=== PATIENT | female | born 1940 | race Caucasian/White ===

== ENCOUNTER → 2024-03-21 | Outpatient (CLI) | payer MEDICARE, MEDICAID, SELFPAY ==
[2024-03-21 11:49] LABS: Collection Type, Urine Clean Catch
[2024-03-21 12:03] LABS: Basophils # (Auto) 0.1 Thou/mm3 (0.0-0.2); Basophils % (Auto) 1 % (0-2.5); Eosinophils # (Auto) 1.1 Thou/mm3 (0.0-0.5); Eosinophils % (Auto) 17 % (0-10); Hematocrit 37.9 % (36.0-46.0); Hemoglobin 12.1 g/dL (12.0-16.0); Immature Granulocytes % (Auto) 0 % (0-0); Immature Granulocytes Auto 0.01 Thou/mm3 (0.00-0.00); Lymphocytes # (Auto) 1.2 Thou/mm3 (1.0-4.8); Lymphocytes % (Auto) 18 % (10-50); Mean Corpuscular HGB Conc 31.9 g/dl (31.0-37.0); Mean Corpuscular Hemoglobin 29.7 pg (25.0-35.0); Mean Corpuscular Volume 93 fL (80-100); Monocytes # (Auto) 0.5 Thou/mm3 (0.0-0.8); Monocytes % (Auto) 8 % (0-12); Neutrophils # (Auto) 3.6 Thou/mm3 (1.8-7.7); Neutrophils % (Auto) 55 % (37-80); Nucleated Red Blood Cell % 0 /100 WBC (0); Platelet Count 325 Thou/mm3 (140-440); Red Blood Count 4.07 Miln/mm3 (4.00-5.20); White Blood Count 6.5 Thou/mm3 (3.6-11.0)
[2024-03-21 12:08] LABS: Bilirubin,Urine Negative (Negative); Blood,Urine Negative (Negative); Clarity,Urine Clear (Clear/Hazy); Color,Urine Yellow (Lt Yel-Yel); Glucose, Urine 1+ (Negative); Ketones,Urine Negative (Negative); Leukocyte Esterase,Urine Negative (Negative); Nitrite,Urine Negative (Negative); Protein,Urine 1+ (Neg - Trace); RBC,Urine 3 /hpf (0-3); Specific Gravity,Urine 1.022 (1.001-1.035); Squamous Epithelial Cell,Urine 4 /hpf (0-5); Urobilinogen,Urine Negative mg/dL (0.0-1.0); WBC,Urine 3 /hpf (0-5)
[2024-03-21 12:28] LABS: Parathyroid Hormone Intact 111.3 pg/ml (18.5-88.0)
[2024-03-21 12:30] LABS: Alanine Aminotransferase 12 U/L (10-49); Albumin, Serum 4.1 gm/dL (3.4-4.8); Alkaline Phosphatase 79 U/L (46-116); Anion Gap 8 (7-16); Aspartate Amino Transferase 15 U/L (0-34); BUN/Creatinine Ratio 16 Ratio (12-20); Bilirubin,Total 0.3 mg/dL (0.3-1.2); Blood Urea Nitrogen 22 mg/dL (9-23); Calcium 9.6 mg/dL (8.3-10.6); Calcium (Corrected) 9.6 mg/dL (8.5-10.1); Carbon Dioxide 29.3 mMol/L (20.0-31.0); Cardiac Risk Estimate 3.3 RATIO (3.7-5.6); Chloride 104 mMol/L (98-107); Cholesterol 140 mg/dL (132-200); Creatinine (Component) 1.4 mg/dL (0.6-1.3); Globulin 2.1 gm/dL (2.3-3.5); Glucose 146 mg/dL (74-106); HDL Cholesterol 43 mg/dL (40-60); LDL Cholesterol,Calculated 81 mg/dL (0-130); Osmolality,Calculated 287 (275-295); Sodium 141 mMol/L (136-145); Total Protein 6.2 gm/dL (5.7-8.2); Triglycerides 82 mg/dL (30-150); eGFR 38 See Note
== END | disposition home or self-care (01) ==
LOC: COPL 11:01
PROVIDERS: PCP Internal Medicine; Referring Provider Internal Medicine; Visit Provider Internal Medicine
DX: I12.9 Hypertensive chronic kidney disease with stage 1 through stage 4 chronic kidney disease, or unspecified chronic kidney disease (principal); N18.30 Chronic kidney disease, stage 3 unspecified; E78.5 Hyperlipidemia, unspecified
CPT/HCPCS: 36415; 80053; 80061; 81001; 83970; 85025

== ENCOUNTER 2024-05-29 14:07 | Emergency (ER) | payer MEDICARE, MEDICAID, SELFPAY ==
[2024-05-29 14:09] VITALS: BMI 25.9
[2024-05-29 14:28] VITALS: BP 150/73; PULSE 98; RESP 20; TEMP 37.6; O2SAT 91
--- NOTE | 2024-05-29 14:31 | XR_ITS ---
Examination: CT abdomen and pelvis without contrast. Coronal 3-D reconstructions. Sagittal 2-D reconstructions. Date and time of exam:May 31, 2024 at 1303 hours Indications: Generalized abdominal pain and vomiting this week CTDI: vol (mGy): 7.25 DLP: (mGycm): 369 Technique: Axial images of the abdomen have been obtained, 3 mm slice thickness Intravenous contrast material has not been administered. Low dose protocols were performed. One or more of the following dose reduction techniques were used; automated exposure control, adjustment of the mA and/or KV according to patient size, use of iterative reconstruction technique. Findings: Patient motion degrades scan image quality Liver is mildly irregular in contour with fatty infiltration Gallstones No pancreatic mass Heavy abdominal aortic calcification Atrophic left kidney Renal arterial calcifications No hydronephrosis 12 mm fat-containing umbilical hernia No pericecal inflammatory change No bowel obstruction Extensive colonic diverticulosis, no diverticulitis Atrophic uterus Urinary bladder wall is thickened anteriorly up to 13 mm Left hip hemiarthroplasty with satisfactory alignment Advanced degenerative disc disease lower 3 lumbar levels Impression: The study is degraded by patient motion Primary hepatocellular disease Cholelithiasis, recommend hepatobiliary sonography follow-up Atrophic left kidney No hydronephrosis or ureteral calculi 12 mm fat-containing umbilical hernia No CT findings of bowel obstruction appendicitis Colonic diverticulosis, no diverticulitis Urinary bladder wall thickened anteriorly up to 13 mm, differential would include cystitis, clinical correlation advised
--- NOTE | 2024-05-29 14:31 | XR_ITS ---
Examination: AP lateral chest 2 views Technique: Sitting AP lateral chest 2 views Exam date and time: May 29, 2024 1442 hrs. Indications: Onset nausea vomiting lower abdominal pain and fever beginning 2 days ago Findings: Mild enlargement cardiac contour Retrocardiac gastric hernia Mild vascular congestion. Ectatic thoracic aorta Recommend AP lordotic chest follow-up to exclude 12 mm pulmonary nodule right upper lobe No lobar pneumonia Impression: Mild vascular congestion Recommend AP lordotic chest follow-up to exclude 12 mm pulmonary nodule right upper lobe
--- NOTE | 2024-05-29 14:32 | PD.EDRME ---
Rapid Medical Screening Exam RME Arrival date/time: 05/29/24 14:07 83-year-old female with a history of diverticulitis, hyperlipidemia, hypertension, dementia presents to the emergency room with a chief complaint of nausea vomiting, lower abdominal pain, and fevers x 2 days I have greeted and performed a focused initial assessment of this patient. A comprehensive ED assessment and evaluation of the patient, analysis of all test results, and completion of the medical decision making process will be conducted by additional ED providers. Chief Complaint: Abdominal Pain Time Seen by Provider: 05/29/24 14:26 Vital signs: Vital Signs Temperature 99.6 F 05/29/24 14:28 Pulse Rate 98 05/29/24 14:28 Respiratory Rate 20 05/29/24 14:28 Blood Pressure 150/73 H 05/29/24 14:28 Pulse Oximetry (%) 91 L 05/29/24 14:28 Oxygen Delivery Method Room Air 05/29/24 14:28 Vital signs reviewed by provider: Yes
[2024-05-29 15:35] LABS: Basophils % (Auto) 0 % (0-2.5); Eosinophils % (Auto) 0 % (0-10); Hemoglobin 10.2 g/dL (12.0-16.0); Immature Granulocytes % (Auto) 1 % (0-0); Immature Granulocytes Auto 0.09 Thou/mm3 (0.00-0.00); Lymphocytes # (Auto) 0.4 Thou/mm3 (1.0-4.8); Lymphocytes % (Auto) 3 % (10-50); Mean Corpuscular HGB Conc 32.9 g/dl (31.0-37.0); Mean Corpuscular Hemoglobin 29.7 pg (25.0-35.0); Mean Corpuscular Volume 90 fL (80-100); Monocytes # (Auto) 0.1 Thou/mm3 (0.0-0.8); Monocytes % (Auto) 1 % (0-12); Neutrophils # (Auto) 14.4 Thou/mm3 (1.8-7.7); Neutrophils % (Auto) 96 % (37-80); Nucleated Red Blood Cell % 0 /100 WBC (0); Platelet Count 326 Thou/mm3 (140-440); RDW Standard Deviation 51.1 fL (36.4-46.3); Red Blood Count 3.43 Miln/mm3 (4.00-5.20); White Blood Count 15.1 Thou/mm3 (3.6-11.0)
[2024-05-29 16:05] LABS: Alanine Aminotransferase 15 U/L (10-49); Albumin, Serum 3.6 gm/dL (3.4-4.8); Albumin/Globulin Ratio 1.3 (1.2-2.2); Alkaline Phosphatase 109 U/L (46-116); Anion Gap 13 (7-16); Aspartate Amino Transferase 23 U/L (0-34); BUN/Creatinine Ratio 16 Ratio (12-20); Bilirubin,Total 0.3 mg/dL (0.3-1.2); Blood Urea Nitrogen 31 mg/dL (9-23); Calcium 9.1 mg/dL (8.3-10.6); Calcium (Corrected) 9.4 mg/dL (8.5-10.1); Chloride 103 mMol/L (98-107); Creatinine (Component) 1.9 mg/dL (0.6-1.3); Estimated Creatinine Clearance 16.2 mL/min (>60); Globulin 2.7 gm/dL (2.3-3.5); Glucose 275 mg/dL (74-106); Lipase 21 U/L (12-53); Osmolality,Calculated 290 (275-295); Potassium 3.9 mMol/L (3.4-5.1); Sodium 137 mMol/L (136-145); Total Protein 6.3 gm/dL (5.7-8.2); eGFR 26 See Note
--- NOTE | 2024-05-29 20:00 | PD.EDABDPN ---
ED Abdominal Pain RME/HPI General Chief Complaint: Abdominal Pain Stated complaint: ABD PAIN, VOMITING Time seen by provider: 05/29/24 14:26 Arrival date/time: 05/29/24 14:07 Source: patient Mode of arrival: ambulatory Limitations: no limitations RME / HPI RME / HPI narrative: 05/29/24 14:07 83-year-old female with a history of diverticulitis, hyperlipidemia, hypertension, dementia presents to the emergency room with a chief complaint of nausea vomiting, lower abdominal pain, and fevers x 2 days I have greeted and performed a focused initial assessment of this patient. A comprehensive ED assessment and evaluation of the patient, analysis of all test results, and completion of the medical decision making process will be conducted by additional ED providers. Dr. Box?s Main ED Evaluation: 83-year-old female wit history of dementia is brought to the emergency department by her daughter due to complaints of persistent abdominal pain, fever, nausea, and vomiting. The daughter reports that the patient had a recorded fever of 100.7?F. The daughter has observed a decrease in oral intake over the past day. Given these concerns, the daughter took the patient to [facility] yesterday, where she was evaluated and prescribed Bactrim empirically while awaiting urine culture results. Since then, the patient has taken two doses of the antibiotic; however, her symptoms have persisted, prompting her daughter to bring her to the ED for further evaluation. Related Data Home Medications ?Medication ?Instructions ?Recorded ?Confirmed verapamil 240 mg tablet,extended 240 mg PO QDAY 05/02/20 08/01/21 release albuterol sulfate 90 mcg/actuation 2 puff inhalation Q6H 02/15/21 08/01/21 aerosol inhaler insulin glargine 100 unit/mL (3 10 unit subcut QPM 02/15/21 08/01/21 mL) subcutaneous pen (Basaglar KwikPen U-100 Insulin) lisinopril 20 mg tablet 20 mg PO QDAY 02/15/21 08/01/21 clopidogrel 75 mg tablet 75 mg PO QDAY 08/01/21 08/01/21 furosemide 40 mg tablet 40 mg PO QAM 08/01/21 08/01/21 glipizide 5 mg tablet 5 mg PO QDAY 08/01/21 08/01/21 nitroglycerin 0.4 mg sublingual 0.4 mg buccal [id number] PRN Chest 08/01/21 08/01/21 tablet Pain potassium chloride 10 mEq 10 meq PO BID 08/01/21 08/01/21 capsule,extended release pravastatin 40 mg tablet 40 mg PO QDAY 08/01/21 08/01/21 Previous Rx's ?Medication ?Instructions ?Recorded dicyclomine 20 mg tablet 20 mg PO QID PRN abdominal pain 06/25/23 #14 tabs nitrofurantoin 100 mg PO Q12H Urinary tract 05/29/24 monohydrate/macrocrystals 100 mg infection 7 days #14 caps capsule (Macrobid) Allergies Allergy/AdvReac Type Severity Reaction Status Date / Time erythromycin base Allergy Severe DIFF Verified 05/29/24 14:08 BREATHING latex Allergy Severe RASH AND Verified 05/29/24 14:08 ITCHING Penicillins Allergy Severe ITCHING Verified 05/29/24 14:08 tetracycline Allergy Severe RASH Verified 05/29/24 14:08 Review of Systems Review of Systems Systems Reviewed: All systems reviewed, normal except as documented Past Medical History Past Medical History NEUROLOGIC: Positive Dementia (early); Negative Seizures CARDIAC: Positive Myocardial Infarction, Hypercholesterolemia, Cellulitis and Hypertension; Negative Cardiac Disorders or Congestive Heart Failure RESPIRATORY: Negative Chronic Obstructive Pulmonary Disease (COPD) or Asthma GASTROINTESTINAL: Positive Diverticulitis; Negative Gastrointestinal Bleed, Hemorrhoids or Gastroesophageal Reflux Disease GENITOURINARY: Positive Genitourinary Disorders; Negative Renal Disease REPRODUCTIVE: Positive Previous Pregnancies MUSCULOSKELETAL: Positive Arthritis, Osteoporosis and Fractures ENDOCRINE: Negative Diabetes Mellitus Type 1 or Diabetes Mellitus Type 2 HEMATOLOGIC: Negative Sickle Cell Disease PSYCHO/SOCIAL: Negative Depression or Anxiety OTHER HISTORY: Positive Chicken Pox; Negative Autoimmune Disease, Falls, Blood Transfusions, Blood Transfusion Reaction or Cancer Family History FAMILY HISTORY: Negative Family Psychiatric Problems, Family Respiratory Disorders, Family Cardiac Disorders, Family Gastrointestinal Problems, Family Cancer, Family Surgery or Family Anesthesia Reaction Surgical History SURGICAL: Positive Coronary Stent Social History SMOKING STATUS: Never smoker SUBSTANCE USE: does not use ED Exam Narrative Physical exam: GENERAL APPEARANCE: Alert and oriented to person but mildly confused, consistent with the patient?s baseline dementia, with no acute worsening of mental status, well-developed, well-nourished, no acute distress VITALS: All vitals were reviewed and the pulse ox is 95% on room air, which is normal according to my interpretation. HEENT: Normocephalic, atraumatic; pupils equal, round, reactive to light; EOMI; mucous membranes pink, moist; oropharynx clear NECK: Supple LUNGS: CTABL; no wheezes, no rales, no rhonchi HEART: Regular rate, regular rhythm; normal S1, S2; no murmurs ABDOMEN: non distended; normal BS; soft, no tenderness, no guarding, no rebound; no masses, no organomegaly, no hernia BACK: no CVA tenderness EXTREMITIES: atraumatic; no edema NEUROLOGIC: awake; alert and oriented x4; cranial nerves II-XII grossly intact; no focal sensory or motor deficits PSYCHIATRIC: appropriate mood and affect SKIN: warm, dry, normal color; no rashes General Limitations: Present no limitations Course Course Course Narrative: CXR is ordered for determining etiology of fever. Quality Measures none Orders Category Date Time Status Bedside COVID-19 Antigen Test NOW Care 05/29/24 14:31 Completed Bedside Influenza A&B Antigen Test NOW Care 05/29/24 14:31 Completed In and Out Catheter X1 Care 05/29/24 20:[address] abdomen pelvis wo con Stat Exams 05/29/24 14:31 Completed XR chest 2V Stat Exams 05/29/24 14:31 Completed CBC Stat Lab 05/29/24 15:14 Completed CMP [Comprehensive Metabolic Panel] Stat Lab 05/29/24 15:14 Completed Lipase Stat Lab 05/29/24 15:14 Completed Urinalysis, C/S if Indicated Stat Lab 05/29/24 20:02 Completed Urine Culture Stat Lab 05/29/24 20:02 Received 1,000 mg IM w/Lido* 1% Med 05/29/24 20:25 Ordered cefTRIAXone [Rocephin] 1,000 mg Lidocaine 1% 20 ml [Xylocaine 1% 20 ML] 2.1 ml IM X1 Vital Signs Vital signs: Vital Signs Temperature 99.6 F 05/29/24 14:28 Pulse Rate 98 05/29/24 14:28 Respiratory Rate 20 05/29/24 14:28 Blood Pressure 150/73 H 05/29/24 14:28 Pulse Oximetry (%) 91 L 05/29/24 14:28 Oxygen Delivery Method Room Air 05/29/24 14:28 Abdominal Pain MDM MDM Narrative MDM Narrative:: 83-year-old female with a history of dementia presents with persistent abdominal pain, fever (100.7?F), nausea, and vomiting. She was recently evaluated at [facility] and started on Bactrim for a suspected UTI, but symptoms have persisted despite two doses. Urinalysis is positive for UTI. The patient is clinically stable for discharge with no indication for inpatient admission. Macrobid was prescribed and sent to the pharmacy. Discharge precautions were discussed with the daughter, and she was advised to follow up as needed. Scribe Attestation: I, Saray Deng, am scribing for and in the presence of Dr. Box. Provider Notation: Although this document has been carefully reviewed, there may still be some phonetic and other typographical errors. These errors are purely grammatical due to imperfections in the software program and should not be construed in any way to compromise the substance of the patient's medical care during this visit. Patient data External records reviewed:: [facility] previous records Clinical information provided by:: patient and family Social determinants that could affect healthcare access:: none Patient has the following chronic illnesses:: see PMH How is presenting disease/condition affected by chronic disease/condition?: uneffected by Evaluation data The following diagnostics were reviewed and interpreted by me:: lab results and radiology exam(s) Lab and/or radiology exams considered but not ordered:: na Interpretation Summary: I personally reviewed the radiology data and agree with the radiologist's interpretation. Examination: AP lateral chest 2 views Exam date and time: May 29, 2024 1442 hrs. Indications: Onset nausea vomiting lower abdominal pain and fever beginning 2 days ago Findings: Mild enlargement cardiac contour Retrocardiac gastric hernia Mild vascular congestion. Ectatic thoracic aorta Recommend AP lordotic chest follow-up to exclude 12 mm pulmonary nodule right upper lobe No lobar pneumonia Impression: Mild vascular congestion Recommend AP lordotic chest follow-up to exclude 12 mm pulmonary nodule right upper lobe Dictated By: Sachin Quinonez MD Examination: CT abdomen and pelvis without contrast. Date and time of exam:May 31, 2024 at 1303 hours Indications: Generalized abdominal pain and vomiting this week Findings: Patient motion degrades scan image quality Liver is mildly irregular in contour with fatty infiltration Gallstones No pancreatic mass Heavy abdominal aortic calcification Atrophic left kidney Renal arterial calcifications No hydronephrosis 12 mm fat-containing umbilical hernia No pericecal inflammatory change No bowel obstruction Extensive colonic diverticulosis, no diverticulitis Atrophic uterus Urinary bladder wall is thickened anteriorly up to 13 mm Left hip hemiarthroplasty with satisfactory alignment Advanced degenerative disc disease lower 3 lumbar levels Impression: The study is degraded by patient motion Primary hepatocellular disease Cholelithiasis, recommend hepatobiliary sonography follow-up Atrophic left kidney No hydronephrosis or ureteral calculi 12 mm fat-containing umbilical hernia No CT findings of bowel obstruction appendicitis Colonic diverticulosis, no diverticulitis Urinary bladder wall thickened anteriorly up to 13 mm, differential would include cystitis, clinical correlation advised Dictated By: Sachin Quinonez MD Medications / Prescriptions Medications or Prescriptions considered but not ordered:: na Medication administrations:: as above, if any Consultations Consultation(s) initiated? (list below): No Diagnosis Differential diagnosis abdominal pain: acute appendicitis, diverticulitis, small bowel obstruction and other (intra-abdominal abscess, cancer) Most likely diagnosis given after review of the tests above:: see clinical impression below Admission Indicated Admission indicated?: not indicated Admission Request Was there a request for admission?: No Disposition Plan Disposition Plan: Discharge Discharge Attestation Discharge Attestation: The patient and all family members were given an opportunity to ask questions and understood the discharge instructions. Discharge instructions specifically effects, indications for sooner follow up or return to the emergency department, and the expected course of current diagnosis. Patient condition: Stable Discharge Plan Plan Patient Disposition: HOME (Self Care) Disposition Comment: Stable for discharge Patient condition on transfer: Stable Prescriptions/Referrals Prescriptions/Med Rec: New nitrofurantoin monohyd/m-cryst [Macrobid] 100 mg capsule 100 mg PO Q12H 7 Days Qty: 14 0RF Rx Instructions: must administer with a meal/food No Action verapamil 240 mg Tablet Extended Release 240 mg PO QDAY lisinopril 20 mg tablet 20 mg PO QDAY albuterol sulfate 90 mcg/actuation HFA aerosol inhaler 2 puff INHALATION Q6H Lyndon Barrientos U-100 Insulin 100 unit/mL (3 mL) Insulin Pen 10 unit SUBCUT QPM furosemide 40 mg Tablet 40 mg PO QAM potassium chloride 10 mEq Capsule, Extended Release 10 meq PO BID pravastatin 40 mg Tablet 40 mg PO QDAY clopidogrel 75 mg Tablet 75 mg PO QDAY nitroglycerin 0.4 mg Tablet, Sublingual 0.4 mg BUCCAL [id number] PRN (Reason: Chest Pain) glipizide 5 mg Tablet 5 mg PO QDAY dicyclomine 20 mg tablet 20 mg PO QID PRN (Reason: abdominal pain) Qty: 14 0RF Referrals: Kaleb Sky MD [Primary Care Provider] - In 1 week Problem List Clinical Impression: Urinary tract infection Patient/Caregiver Discharge Instructions Discharge Activity: activity as tolerated Education Materials: Urinary Tract Infections in Women Additional Instructions: Please return to the emergency department for any worsening or any further medical problems. Otherwise you should follow-up with your primary care doctor within the next several days Afsaneh has a urinary tract infection. She was partially treated with a medicine called Macrobid. She is currently being treated with a different antibiotic called Bactrim. Please continue to give her the Bactrim until its completely gone and also you should add the Macrobid which I called a prescription in for at the pharmacy. Between these 2 antibiotics she will most likely have good coverage for her urinary tract infection. Print Language: [place] Stand Alone Forms: Greta Award Info., Patient Portal Info Letter
[2024-05-29 20:09] LABS: Collection Type, Urine Clean Catch
[2024-05-29 20:19] VITALS: BP 132/68; PULSE 82; RESP 18; TEMP 37.7; O2SAT 92
[2024-05-29 20:22] LABS: Bacteria,Urine Rare; Bilirubin,Urine Negative (Negative); Blood,Urine 1+ (Negative); Clarity,Urine Turbid (Clear/Hazy); Color,Urine Yellow (Lt Yel-Yel); Glucose, Urine Trace (Negative); Ketones,Urine Negative (Negative); Leukocyte Esterase,Urine Positive (Negative); Nitrite,Urine Negative (Negative); PH,Urine 5.5 (5.0-7.0); Protein,Urine 2+ (Neg - Trace); RBC,Urine 3 /hpf (0-3); Specific Gravity,Urine 1.017 (1.001-1.035); Squamous Epithelial Cell,Urine < 1 /hpf (0-5); Urobilinogen,Urine Negative mg/dL (0.0-1.0); WBC,Urine 183 /hpf (0-5)
[2024-05-29 20:23] LABS: Culture Indicated,Urine Yes
[2024-05-29] MEDS: cefTRIAXone 1,000 MG, LIDOCAINE 1% 20 ML 2.1 ML IM (20:35)
[2024-05-29 20:52] VITALS: RESP 18
== END 2024-05-29 20:53 | disposition home or self-care (01) ==
PROVIDERS: Nurse Practitioner Family; Emergency Provider Emergency Medicine; PCP Internal Medicine
DX: N39.0 Urinary tract infection, site not specified (principal); I10 Essential (primary) hypertension; F03.90 Unspecified dementia, unspecified severity, without behavioral disturbance, psychotic disturbance, mood disturbance, and anxiety
CPT/HCPCS: 51701; 36415; 71046; 74176; 80053; 81001; 83690; 85025; 87077; 87086; 87186; 87400; 87811; 96372; 99284; J0696; J3490

== ENCOUNTER 2024-05-30 11:11 | Inpatient (IN) | payer MEDICARE, MEDICAID, SELFPAY ==
--- NOTE | 2024-05-30 11:19 | PD.EDADULT ---
ED General RME/HPI General Chief complaint: General Adult/Misc Complain Stated complaint: LOW BLOOD PRESSURE Time Seen by Provider: 05/30/24 11:14 Arrival date/time: 05/30/24 11:11 CC: Hypotension HPI patient presents the ER via EMS report normal tensive pressures the family members report hypotension before giving hypertensive medication to the patient patient has no specific complaints although demented the patient states she has no fever chills nausea vomiting or headache. Review the medical record shows that the patient was seen here last night diagnosed with UTI and discharged home. Related Data Home Medications ?Medication ?Instructions ?Recorded ?Confirmed verapamil 240 mg tablet,extended 240 mg PO QDAY 05/02/20 08/01/21 release albuterol sulfate 90 mcg/actuation 2 puff inhalation Q6H 02/15/21 08/01/21 aerosol inhaler insulin glargine 100 unit/mL (3 10 unit subcut QPM 02/15/21 08/01/21 mL) subcutaneous pen (Basaglar KwikPen U-100 Insulin) lisinopril 20 mg tablet 20 mg PO QDAY 02/15/21 08/01/21 clopidogrel 75 mg tablet 75 mg PO QDAY 08/01/21 08/01/21 furosemide 40 mg tablet 40 mg PO QAM 08/01/21 08/01/21 glipizide 5 mg tablet 5 mg PO QDAY 08/01/21 08/01/21 nitroglycerin 0.4 mg sublingual 0.4 mg buccal [id number] PRN Chest 08/01/21 08/01/21 tablet Pain potassium chloride 10 mEq 10 meq PO BID 08/01/21 08/01/21 capsule,extended release pravastatin 40 mg tablet 40 mg PO QDAY 08/01/21 08/01/21 Previous Rx's ?Medication ?Instructions ?Recorded dicyclomine 20 mg tablet 20 mg PO QID PRN abdominal pain 06/25/23 #14 tabs nitrofurantoin 100 mg PO Q12H Urinary tract 05/29/24 monohydrate/macrocrystals 100 mg infection 7 days #14 caps capsule (Macrobid) Allergies Allergy/AdvReac Type Severity Reaction Status Date / Time erythromycin base Allergy Severe DIFF Verified 05/30/24 11:35 BREATHING latex Allergy Severe RASH AND Verified 05/30/24 11:35 ITCHING Penicillins Allergy Severe ITCHING Verified 05/30/24 11:35 tetracycline Allergy Severe RASH Verified 05/30/24 11:35 Review of Systems Review of Systems Narrative Review of Systems: GEN: No fever, no chills, no weight loss EYES: No discharge, no visual changes, no pain HEENT: No ear pain, no congestion, no sore throat PULM: No shortness of breath, no cough, no congestion CV: No chest pain, no dyspnea on exertion, no palpitations GI: No nausea, no vomiting, no diarrhea, no pain, no constipation : No frequency, no urgency, no dysuria MUSC/SKEL: No joint pain, no back pain SKIN: No rash PSYCH: No hallucinations, no depression HEME/LYMPH: No easy bleeding or bruising tendencies NEURO: No weakness, no headache Past Medical History Past Medical History NEUROLOGIC: Positive Dementia; Negative Seizures CARDIAC: Positive Myocardial Infarction, Hypercholesterolemia, Cellulitis and Hypertension; Negative Cardiac Disorders or Congestive Heart Failure RESPIRATORY: Negative Chronic Obstructive Pulmonary Disease (COPD) or Asthma GASTROINTESTINAL: Positive Diverticulitis; Negative Gastrointestinal Bleed, Hemorrhoids or Gastroesophageal Reflux Disease GENITOURINARY: Positive Genitourinary Disorders; Negative Renal Disease REPRODUCTIVE: Positive Previous Pregnancies MUSCULOSKELETAL: Positive Arthritis, Osteoporosis and Fractures ENDOCRINE: Negative Diabetes Mellitus Type 1 or Diabetes Mellitus Type 2 HEMATOLOGIC: Negative Sickle Cell Disease PSYCHO/SOCIAL: Negative Depression or Anxiety OTHER HISTORY: Positive Chicken Pox; Negative Autoimmune Disease, Falls, Blood Transfusions, Blood Transfusion Reaction or Cancer Family History FAMILY HISTORY: Negative Family Psychiatric Problems, Family Respiratory Disorders, Family Cardiac Disorders, Family Gastrointestinal Problems, Family Cancer, Family Surgery or Family Anesthesia Reaction Surgical History SURGICAL: Positive Coronary Stent Social History SMOKING STATUS: Never smoker SUBSTANCE USE: does not use ED Exam Narrative Physical exam: [General: Not in any acute distress Head normocephalic HEENT: Within acceptable limits Neck is supple nontender Chest equal chest rise nontender to palpation Respiratory: Clear to auscultation no wheezes crackles or rubs CV: Rate rhythm is regular no murmurs rubs or clicks Abdomen is soft nontender no masses positive bowel sounds all 4 quadrants Back: No CVA tenderness no spinous process tenderness from cervical spine thoracic and lumbar spine Skin: Intact no petechiae rash induration ulceration or crepitus Extremities: Moving all extremity against resistance cap refill less than 2 seconds neurosensory intact Neuro: Awake alert oriented x2, person and place, Glascow coma 15 no focal deficits] Course Quality Measures none Orders Category Date Time Status EKG (ED ONLY) *Do not use* NOW Care 05/30/24 13:35 Completed Saline [Insert IV] NOW Care 05/30/24 13:39 Active EKG (ED Only) Stat Exams 05/30/24 13:35 Draft XR chest 1V Stat Exams 05/30/24 14:10 Completed B-Type Natriuretic Peptide Stat Lab 05/30/24 12:30 Completed CBC Stat Lab 05/30/24 12:30 Completed CMP [Comprehensive Metabolic Panel] Stat Lab 05/30/24 12:30 Completed Drug Screen,Urine Stat Lab 05/30/24 14:51 Completed LDH (Lactate Dehydrogenase) Stat Lab 05/30/24 12:30 Completed Lactic Acid [Lactate (Lactic Acid)] Stat Lab 05/30/24 14:15 Completed Magnesium Stat Lab 05/30/24 12:30 Completed Partial Thromboplastin Time Stat Lab 05/30/24 12:30 Completed Procalcitonin Stat Lab 05/30/24 12:30 Completed Prothrombin Time with INR Stat Lab 05/30/24 12:30 Completed Troponin I Stat Lab 05/30/24 12:30 Completed Urinalysis Stat Lab 05/30/24 14:51 Completed Sodium Chloride 0.9% 1000 ml [Ns] 1,000 ml Med 05/30/24 13:39 Discontinued IV 999 mls/hr [id number] [Rocephin] 1,000 mg Med 05/30/24 15:15 Discontinued Sodium Chloride 0.9% (Partial) [NS (Partial)] 50 ml IV NOW Vital Signs Vital signs: Vital Signs Temperature 98.2 F 05/30/24 11:25 Pulse Rate 87 05/30/24 11:25 Respiratory Rate 20 05/30/24 11:25 Blood Pressure 90/57 L 05/30/24 11:25 Pulse Oximetry (%) 100 05/30/24 11:25 Oxygen Delivery Method Nasal Cannula 05/30/24 11:25 Oxygen Flow Rate 6 05/30/24 11:25 [facility] Patient data External records reviewed:: [facility] previous records and EMS form Clinical information provided by:: patient and EMS Social determinants that could affect healthcare access:: none Patient has the following chronic illnesses:: Diabetes hypertension hyperlipidemia How is presenting disease/condition affected by chronic disease/condition?: uneffected by Evaluation data The following diagnostics were reviewed and interpreted by me:: lab results Lab and/or radiology exams considered but not ordered:: EKG performed at 1517 shows a ventricular rate of 7 0 [place] interval 177 QRS of 9 8 QTc of 430 this is normal sinus rhythm. CBC shows a leukocytosis of 23,000 and H&H of 9 and 26 respectively with platelets of 240 Serum chemistry shows sodium 135 potassium 3.7 chloride of 102 CO2 of 21.6 gap of 11 BUN of 36 creatinine of 2.1 with a glucose of 174. T. bili of 0.2 no transaminitis Troponin is elevated, BNP is elevated, Pro-Garrett is 30.2 Lactic acid is negative Urine is positive for UTI Chest x-ray shows early pneumonia Interpretation Summary: All this patient came in for mild hypotension was seen here last night for hypotension and is on antibiotics for UTI her blood work indicates a rise in her WBCs and IHSAN which was not present in the past. Now doing a more extensive workup regarding this patient to determine if sepsis is present. Patient is not septic but has an elevated procalcitonin as leukocytosis urinary tract infection plus pneumonia along with elevated troponin and elevated BNP. Patient's case discussed withDr Donna resident for Dr Giang Patient's case was then determined to be Dr. Sky's patient, who also was given report including clinical presentation laboratory results and diagnostic imaging, she agrees to accept the patient for admission. She is requesting broad-spectrum antibiotics and maintenance fluids Medications Medications considered but not ordered:: None Medication administrations:: Medication Administration History Discontinued Medications Sodium Chloride (Ns) 1,000 mls @ 999 mls/hr IV .Q1H1M ONE Stop: 05/30/24 14:39 Last Admin: 05/30/24 14:56 Dose: 999 mls/hr Documented By: JACQUE Ceftriaxone Sodium 1,000 mg/ (Sodium Chloride) 50 mls @ 100 mls/hr IV NOW ONE Stop: 05/30/24 15:44 None Consultations Consultation(s) initiated? (list below): No Diagnosis Differential Diagnosis ED Complaint MDM: Pneumonia UTI elevated troponin congestive heart failure Most likely diagnosis given after review of the tests above:: Leukocytosis UTI pneumonia IHSAN Admission Indicated Admission indicated?: indicated Explain why admission is indicated or not indicated:: Requires further medical management Admission Request Was there a request for admission?: No Disposition Plan Disposition Plan: Admit Medical Decision Making Differential Diagnosis Differential Diagnosis: Pneumonia UTI elevated troponin congestive heart failure Lab Data 05/30/24 12:30 05/30/24 12:30 Labs: Lab Results 05/30/24 05/30/24 05/30/24 Range/Units 12:30 14:15 14:51 WBC 23.8 H D (3.6-11.0) Thou/mm3 RBC 3.02 L (4.00-5.20) Miln/mm3 Hgb 9.0 L (12.0-16.0) g/dL Hct 26.6 L (36.0-46.0) % MCV 88 (80-100) fL MCH 29.8 (25.0-35.0) pg MCHC 33.8 (31.0-37.0) g/dl RDW Std Deviation 49.9 H (36.4-46.3) fL Plt Count 240 D (140-440) Thou/mm3 Neut % (Auto) 90 H (37-80) % Lymph % (Auto) 3 L (10-50) % [place] % (Auto) 5 (0-12) % Eos % (Auto) 1 (0-10) % Baso % (Auto) 0 (0-2.5) % Neut # (Auto) 21.3 H (1.8-7.7) Thou/mm3 Lymph # (Auto) 0.7 L (1.0-4.8) Thou/mm3 [place] # (Auto) 1.3 H (0.0-0.8) Thou/mm3 Eos # (Auto) 0.2 (0.0-0.5) Thou/mm3 Baso # (Auto) 0.1 (0.0-0.2) Thou/mm3 Immature Gran # (Auto) 0.32 H (0.00-0.00) Thou/mm3 Absolute Nucleated RBC 0.00 (0.00-0.00) Thou/mm3 Immature Gran % 1 H (0-0) % Nucleated RBC % 0 (0) /100 WBC PT 12.6 H (9.0-12.2) Seconds INR 1.2 (0.9-1.3) APTT 26.2 (22.0-36.0) Seconds Sodium 135 L (136-145) mMol/L Potassium 3.7 (3.4-5.1) mMol/L Chloride 102 (98-107) mMol/L Carbon Dioxide 21.6 (20.0-31.0) mMol/L Anion Gap 11 (7-16) BUN 36 H (9-23) mg/dL Creatinine 2.1 H (0.6-1.3) mg/dL Estim Creat Clear Calc 16.3 L (>60) mL/min eGFR 23 L (60 - ) See Note BUN/Creatinine Ratio 17 (12-20) Ratio Glucose 174 H D (74-106) mg/dL Calculated Osmolality 282 (275-295) Lactic Acid 1.5 (0.4-2.0) mMol/L Calcium 8.5 (8.3-10.6) mg/dL Corrected Calcium 9.2 (8.5-10.1) mg/dL Magnesium 2.0 (1.6-2.6) mg/dL Total Bilirubin 0.2 L (0.3-1.2) mg/dL AST 26 (0-34) U/L ALT 17 (10-49) U/L Alkaline Phosphatase 69 D (46-116) U/L Lactate Dehydrogenase 177 (120-246) U/L Troponin I 0.498 H* (0.0-0.045) ng/mL B-Natriuretic Peptide 1648 H* (0-100) pg/mL Total Protein 5.4 L (5.7-8.2) gm/dL Albumin 3.1 L D (3.4-4.8) gm/dL Globulin 2.3 (2.3-3.5) gm/dL Albumin/Globulin Ratio 1.3 (1.2-2.2) Procalcitonin 30.20 H (0.0-0.49) ng/ml Ur Collection Type Clean Catch Urine Color Yellow (Lt Yel-Yel) Urine Clarity Turbid A (Clear/Hazy) Urine pH 5.5 (5.0-7.0) Ur Specific [place] 1.019 (1.001-1.035) Urine Protein 1+ A (Neg - Trace) Urine Glucose (UA) Negative (Negative) Urine Ketones Negative (Negative) Urine Blood 1+ A (Negative) Urine Nitrite Negative (Negative) Urine Bilirubin Negative (Negative) Urine Urobilinogen (Auto) Negative (0.0-1.0) mg/dL Ur Leukocyte Esterase Positive (Negative) Urine RBC 5 H (0-3) /hpf Urine WBC 242 H (0-5) /hpf Ur Squamous Epith Cells < 1 (0-5) /hpf Urine Bacteria None (None) Urine Opiates Screen Negative (Negative) Urine Fentanyl Screen Negative (Negative) Ur Barbiturates Screen Negative (Negative) U Amphetamin/Meth Scrn Negative (Negative) U Benzodiazepines Scrn Negative (Negative) U Cocaine Metab Screen Negative (Negative) U Marijuana (THC) Screen Negative (Negative) Discharge Plan Plan Patient Disposition: Other Care w/in Hosp (SDC/LORIN) Patient condition on transfer: Stable Prescriptions/Referrals Prescriptions/Med Rec: No Action verapamil 240 mg Tablet Extended Release 240 mg PO QDAY lisinopril 20 mg tablet 20 mg PO QDAY albuterol sulfate 90 mcg/actuation HFA aerosol inhaler 2 puff INHALATION Q6H Basaglar KwikPen U-100 Insulin 100 unit/mL (3 mL) Insulin Pen 10 unit SUBCUT QPM furosemide 40 mg Tablet 40 mg PO QAM potassium chloride 10 mEq Capsule, Extended Release 10 meq PO BID pravastatin 40 mg Tablet 40 mg PO QDAY clopidogrel 75 mg Tablet 75 mg PO QDAY nitroglycerin 0.4 mg Tablet, Sublingual 0.4 mg BUCCAL [id number] PRN (Reason: Chest Pain) glipizide 5 mg Tablet 5 mg PO QDAY nitrofurantoin monohyd/m-cryst [Macrobid] 100 mg capsule 100 mg PO Q12H 7 Days Qty: 14 0RF Rx Instructions: must administer with a meal/food dicyclomine 20 mg tablet 20 mg PO QID PRN (Reason: abdominal pain) Qty: 14 0RF Problem List Clinical Impression: UTI (urinary tract infection), IHSAN (acute kidney injury), Pneumonia, Elevated troponin, CHF (congestive heart failure), Hypotension Patient/Caregiver Discharge Instructions Print Language: Surinamese Stand Alone Forms: Greta Award Info., Patient Portal Info Letter PA/CERTIFICATION TECHNICIAN Supervising Physician PA/CERTIFICATION TECHNICIAN Supervising Physician: Nando Schreiber ENP
[2024-05-30 11:25] VITALS: BP 90/57; PULSE 87; RESP 20; TEMP 36.8; O2SAT 100
[2024-05-30 11:29] VITALS: PULSE 88; RESP 16; O2SAT 94
[2024-05-30 11:33] VITALS: BMI 24.4
[2024-05-30 12:39] VITALS: BP 100/63; PULSE 82; RESP 15; TEMP 37.1; O2SAT 94
[2024-05-30 13:01] LABS: Basophils # (Auto) 0.1 Thou/mm3 (0.0-0.2); Basophils % (Auto) 0 % (0-2.5); Eosinophils # (Auto) 0.2 Thou/mm3 (0.0-0.5); Eosinophils % (Auto) 1 % (0-10); Hematocrit 26.6 % (36.0-46.0); Immature Granulocytes % (Auto) 1 % (0-0); Immature Granulocytes Auto 0.32 Thou/mm3 (0.00-0.00); Lymphocytes # (Auto) 0.7 Thou/mm3 (1.0-4.8); Lymphocytes % (Auto) 3 % (10-50); Mean Corpuscular HGB Conc 33.8 g/dl (31.0-37.0); Mean Corpuscular Hemoglobin 29.8 pg (25.0-35.0); Mean Corpuscular Volume 88 fL (80-100); Monocytes # (Auto) 1.3 Thou/mm3 (0.0-0.8); Monocytes % (Auto) 5 % (0-12); Neutrophils # (Auto) 21.3 Thou/mm3 (1.8-7.7); Neutrophils % (Auto) 90 % (37-80); Nucleated Red Blood Cell % 0 /100 WBC (0); Platelet Count 240 Thou/mm3 (140-440); RDW Standard Deviation 49.9 fL (36.4-46.3); Red Blood Count 3.02 Miln/mm3 (4.00-5.20); White Blood Count 23.8 Thou/mm3 (3.6-11.0)
[2024-05-30 13:12] LABS: Alanine Aminotransferase 17 U/L (10-49); Albumin, Serum 3.1 gm/dL (3.4-4.8); Albumin/Globulin Ratio 1.3 (1.2-2.2); Alkaline Phosphatase 69 U/L (46-116); Anion Gap 11 (7-16); Aspartate Amino Transferase 26 U/L (0-34); BUN/Creatinine Ratio 17 Ratio (12-20); Bilirubin,Total 0.2 mg/dL (0.3-1.2); Blood Urea Nitrogen 36 mg/dL (9-23); Calcium 8.5 mg/dL (8.3-10.6); Calcium (Corrected) 9.2 mg/dL (8.5-10.1); Carbon Dioxide 21.6 mMol/L (20.0-31.0); Chloride 102 mMol/L (98-107); Creatinine (Component) 2.1 mg/dL (0.6-1.3); Estimated Creatinine Clearance 16.3 mL/min (>60); Globulin 2.3 gm/dL (2.3-3.5); Glucose 174 mg/dL (74-106); Osmolality,Calculated 282 (275-295); Potassium 3.7 mMol/L (3.4-5.1); Sodium 135 mMol/L (136-145); Total Protein 5.4 gm/dL (5.7-8.2); eGFR 23 See Note
--- NOTE | 2024-05-30 13:35 | EKG_ITS ---
[facility] Test Date: 2024-05-30 Pat Name: VIMAL WATKINS Department: Room: - Gender: Female [employer]: : 1940 Requested By: Nando Anne Order Number: [id number] Reading MD: Nando Anne Measurements Intervals Lee Rate: 70 P: 90 WV: 177 QRS: 64 QRSD: 98 T: 0 QT: 409 QTc: 444 Interpretive Statements SINUS RHYTHM PROBABLE INFERIOR MYOCARDIAL INFARCTION , PROBABLY OLD [35 ms Q WAVE IN II/aVF] Compared to ECG 06/24/2023 19:54:59 Sinus bradycardia no longer present Myocardial infarct finding still present /store/S0/[id number]/ecg/[id number].pdf
--- NOTE | 2024-05-30 14:10 | XR_ITS ---
Examination: AP chest single view Technique one AP portable semiupright chest single view Exam date and time: May 30, 2024 1419 hrs. Indications: Onset chest pain today. Findings: Early bibasilar pneumonia Mild enlargement cardiac contour Mild vascular congestion Prominent osteopenia Impression: Early bibasilar pneumonia
[2024-05-30 14:26] LABS: B-Type Natriuretic Peptide 1648 pg/mL (0-100)
[2024-05-30 14:29] LABS: INR 1.2 (0.9-1.3); Partial Thromboplastin Time 26.2 Seconds (22.0-36.0); Prothrombin Time 12.6 Seconds (9.0-12.2)
[2024-05-30 14:32] LABS: LDH (Lactate Dehydrogenase) 177 U/L (120-246)
[2024-05-30 14:34] VITALS: BP 111/68; PULSE 76; RESP 18; TEMP 37.4; O2SAT 94
[2024-05-30 14:34] LABS: Lactate (Lactic Acid) 1.5 mMol/L (0.4-2.0)
[2024-05-30 14:35] LABS: Troponin I 0.498 ng/mL (0.0-0.045)
[2024-05-30 14:56] LABS: Collection Type, Urine Clean Catch
[2024-05-30] MEDS: SODIUM CHLORIDE 0.9% 1000 ML 1,000 ML 999 ML IV (14:56)
[2024-05-30 15:11] LABS: Amphetamine/Methamp Scrn,U Negative (Negative); Barbiturate Screen,Urine Negative (Negative); Benzodiazepines Screen,Urine Negative (Negative); Benzoylecgonine Screen, Ur Negative (Negative); Bilirubin,Urine Negative (Negative); Blood,Urine 1+ (Negative); Clarity,Urine Turbid (Clear/Hazy); Color,Urine Yellow (Lt Yel-Yel); Fentanyl Screen,Urine Negative (Negative); Glucose, Urine Negative (Negative); Ketones,Urine Negative (Negative); Leukocyte Esterase,Urine Positive (Negative); Nitrite,Urine Negative (Negative); Opiate Screen,Urine Negative (Negative); PH,Urine 5.5 (5.0-7.0); Protein,Urine 1+ (Neg - Trace); RBC,Urine 5 /hpf (0-3); Specific Gravity,Urine 1.019 (1.001-1.035); Squamous Epithelial Cell,Urine < 1 /hpf (0-5); THC Screen,Urine Negative (Negative); Urobilinogen,Urine Negative mg/dL (0.0-1.0); WBC,Urine 242 /hpf (0-5)
--- NOTE | 2024-05-30 17:25 | PD.RESHP ---
Documentation for date of: 05/30/24 Exam Vital Signs Temp Pulse Resp BP Pulse Ox O2 Del Method O2 Flow Rate 99.4 F 76 18 111/68 94 L Room Air 2 05/30/24 14:34 05/30/24 14:34 05/30/24 14:34 05/30/24 14:34 05/30/24 14:34 05/30/24 14:34 05/30/24 12:39 Results: Labs 05/30/24 12:30 05/30/24 12:30 Labs: Short CBC 05/30/24 Range/Units 12:30 WBC 23.8 H D (3.6-11.0) Thou/mm3 Hgb 9.0 L (12.0-16.0) g/dL Hct 26.6 L (36.0-46.0) % Plt Count 240 D (140-440) Thou/mm3 BMP 05/30/24 12:30 Sodium 135 L Potassium 3.7 Chloride 102 Carbon Dioxide 21.6 BUN 36 H Creatinine 2.1 H Glucose 174 H D Calcium 8.5 Cardiac Enzymes 05/30/24 Range/Units 12:30 Troponin I 0.498 H* (0.0-0.045) ng/mL Liver Function 05/30/24 Range/Units 12:30 Total Bilirubin 0.2 L (0.3-1.2) mg/dL AST 26 (0-34) U/L ALT 17 (10-49) U/L Alkaline Phosphatase 69 D (46-116) U/L Albumin 3.1 L D (3.4-4.8) gm/dL Urine 05/30/24 Range/Units 14:51 Urine Color Yellow (Lt Yel-Yel) Urine Clarity Turbid A (Clear/Hazy) Urine pH 5.5 (5.0-7.0) Ur Specific [place] 1.019 (1.001-1.035) Urine Protein 1+ A (Neg - Trace) Urine Glucose (UA) Negative (Negative) Quality Measures Quality Measures none Medications Home Medications and Allergies Home Medications ?Medication ?Instructions ?Recorded ?Confirmed ?Type verapamil 240 mg tablet,extended 240 mg PO QDAY 05/02/20 08/01/21 History release albuterol sulfate 90 mcg/actuation 2 puff inhalation Q6H 02/15/21 08/01/21 History aerosol inhaler insulin glargine 100 unit/mL (3 10 unit subcut QPM 02/15/21 08/01/21 History mL) subcutaneous pen (Basaglar KwikPen U-100 Insulin) lisinopril 20 mg tablet 20 mg PO QDAY 02/15/21 08/01/21 History clopidogrel 75 mg tablet 75 mg PO QDAY 08/01/21 08/01/21 History furosemide 40 mg tablet 40 mg PO QAM 08/01/21 08/01/21 History glipizide 5 mg tablet 5 mg PO QDAY 08/01/21 08/01/21 History nitroglycerin 0.4 mg sublingual 0.4 mg buccal [id number] PRN Chest 08/01/21 08/01/21 History tablet Pain potassium chloride 10 mEq 10 meq PO BID 08/01/21 08/01/21 History capsule,extended release pravastatin 40 mg tablet 40 mg PO QDAY 08/01/21 08/01/21 History Allergies Allergy/AdvReac Type Severity Reaction Status Date / Time erythromycin base Allergy Severe DIFF Verified 05/30/24 11:35 BREATHING latex Allergy Severe RASH AND Verified 05/30/24 11:35 ITCHING Penicillins Allergy Severe ITCHING Verified 05/30/24 11:35 tetracycline Allergy Severe RASH Verified 05/30/24 11:35 Visit Medications Acetaminophen (Acetaminophen 325 Mg Tablet) 650 mg PO Q6H PRN PRN Reason: Fever >101.5 Stop: 06/29/24 17:20 Heparin Sodium (Porcine) (Heparin Sod Inj 5000 Unit/Ml Vial) 5,000 unit SC Q8HR [facility] Stop: 06/13/24 21:59 Sodium Chloride (Ns) 1,000 mls @ 75 mls/hr IV .[id number] [facility] Stop: 06/29/24 17:29 Metoclopramide HCl (Metoclopramide 5 Mg Tablet) 10 mg PO Q6H PRN PRN Reason: NAUSEA OR VOMITING Stop: 06/29/24 17:20 Pantoprazole Sodium (Pantoprazole 40 Mg Tablet) 40 mg PO QDAY [facility] Stop: 06/30/24 08:59 Discontinued Medications Sodium Chloride (Ns) 1,000 mls @ 999 mls/hr IV .Q1H1M ONE Stop: 05/30/24 14:39 Last Admin: 05/30/24 14:56 Dose: 999 mls/hr Ceftriaxone Sodium 1,000 mg/ (Sodium Chloride) 50 mls @ 100 mls/hr IV NOW ONE Stop: 05/30/24 15:44
--- NOTE | 2024-05-30 17:39 | ESHP_ITS ---
Documentation for date of: 05/30/24 HPI History of Present Illness History of present illness: 83-year-old female patient with significant medical history for hypertension, diabetes type 2, dementia, CKD, CAD SP stents and CHF was brought to ED for hypotension. Patient is accompanied by daughter who provides further information. Per daughter patient has been having intermittent fevers, chills and vomiting. Initially patient had gone to [facility] clinic where she was given Bactrim but symptoms persisted. Patient visited [facility] ED yesterday 05/29/2024, was administered Rocephin and discharged on nitrofurantoin/Macrobid. Patient was brought back to ED after being hypotensive and having episode of dark color emesis. Patient has also been having decreased p.o. intake over the last few days. In ED today, vitals were significant for BP 90/57, afebrile and saturating 100% on 6 L nasal cannula. WBC had increased from 15-23 since yesterday and hemoglobin have decreased from 10.2-9. Labs were significant for NA 135, K3.7, BUN 36, BRANCH OPERATIONS SPECIALIST 2.1 (baseline 1.3), EGFR 23, glucose 174, Trope 0.456, BNP 1648 and procalcitonin 30.2. Urinalysis indicated 242 WBC, leukocyte esterase positive and negative urine bacteria. Chest x-ray reading showed early bibasilar pneumonia. Patient was admitted for symptomatic UTI requiring IV antibiotics and IHSAN on CKD. Medical Hx: Hypertension, DM2, CAD SP PCI, CHF, CKD, diverticulosis and dementia. Medications (need reconciliation): pravastatin, lisinopril, januvia, verapamil, calcitriol, era-silvia, isosorbide mononit, quetiapine, hydralazine, memantine Surgical Hx: Left hip surgery, tubal ligation, coronary stent placement Social Hx: Denies drinking alcohol, smoking cigarettes or using other illicit drugs Allergies: Erythromycin = difficulty breathing, latex = rash, penicillin and tetracycline = rash CODE STATUS: Full code PCP is at [facility] Neurologist: Dr. Trujillo Poultry Boner: Dr. Urbina Apple Thinner: Dr. Sky Review of Systems Review of Systems Systems Reviewed: All systems reviewed, normal except as documented Exam Vital Signs Temp Pulse Resp BP Pulse Ox O2 Del Method O2 Flow Rate 99.4 F 76 18 111/68 94 L Room Air 2 05/30/24 14:34 05/30/24 14:34 05/30/24 14:34 05/30/24 14:34 05/30/24 14:34 05/30/24 14:34 05/30/24 12:39 Narrative Exam Constitutional: Frail looking elderly woman, in no acute distress, lying in bed HEENT: NCAT, EOMI, reactive round pupils b/l, patent nares b/l, moist mucous membranes Lung: CTAB, no wheezing, no rhonchi Heart: Regular S1S2, no murmurs, gallops, or rubs Abdomen: Soft, non-distended, non-tender, bowel sounds present throughout Extremities: No cyanosis, clubbing, or edema, LE pulses present b/l Neurologic: No focal sensory or motor deficits noted, AOx1, appropriate affect Skin: Warm, dry, no lesions or rashes noted Results: Labs 06/01/24 05:09 06/01/24 05:09 Labs: Short CBC 05/30/24 Range/Units 12:30 WBC 23.8 H D (3.6-11.0) Thou/mm3 Hgb 9.0 L (12.0-16.0) g/dL Hct 26.6 L (36.0-46.0) % Plt Count 240 D (140-440) Thou/mm3 BMP 05/30/24 12:30 Sodium 135 L Potassium 3.7 Chloride 102 Carbon Dioxide 21.6 BUN 36 H Creatinine 2.1 H Glucose 174 H D Calcium 8.5 Cardiac Enzymes 05/30/24 Range/Units 12:30 Troponin I 0.498 H* (0.0-0.045) ng/mL Liver Function 05/30/24 Range/Units 12:30 Total Bilirubin 0.2 L (0.3-1.2) mg/dL AST 26 (0-34) U/L ALT 17 (10-49) U/L Alkaline Phosphatase 69 D (46-116) U/L Albumin 3.1 L D (3.4-4.8) gm/dL Urine 05/30/24 Range/Units 14:51 Urine Color Yellow (Lt Yel-Yel) Urine Clarity Turbid A (Clear/Hazy) Urine pH 5.5 (5.0-7.0) Ur Specific [place] 1.019 (1.001-1.035) Urine Protein 1+ A (Neg - Trace) Urine Glucose (UA) Negative (Negative) Quality Measures Quality Measures none Advance care planning discussed with:: child Medications Home Medications and Allergies Home Medications ?Medication ?Instructions ?Recorded ?Confirmed ?Type verapamil 240 mg tablet,extended 240 mg PO QDAY 08/01/21 History release albuterol sulfate 90 mcg/actuation 2 puff inhalation Q 6H 02/15/21 08/01/21 History aerosol inhaler insulin glargine 100 unit/mL (3 10 unit subcut QPM 08/3108/01/21 History mL) subcutaneous pen (Basaglar KwikPen U-100 Insulin) lisinopril 20 mg tablet 20 mg PO QDAY 02/15/2108/01 History clopidogrel 75 mg tablet 75 mg PO QDAY 08/01/2108/01 History furosemide 40 mg tablet 40 mg PO QAM 08/01/21 History glipizide 5 mg tablet 5 mg PO QDAY 08/01/21 History nitroglycerin 0.4 mg sublingual 0.4 mg buccal [id number] PRN Chest 08/01/21 08/01/21 History tablet Pain potassium chloride 10 mEq 10 meq PO BID 08/01/2108/01 History capsule,extended release pravastatin 40 mg tablet 40 mg PO QDAY 08/01/2108/01 History Allergies Allergy/AdvReac Type Severity Reaction Status Date / Time erythromycin base Allergy Severe DIFF Verified 05/30/24 11:35 BREATHING latex Allergy Severe RASH AND Verified 05/30/24 11:35 ITCHING Penicillins Allergy Severe ITCHING Verified 05/30/24 11:35 tetracycline Allergy Severe RASH Verified 05/30/24 11:35 Visit Medications Acetaminophen (Acetaminophen 325 Mg Tablet) 650 mg PO Q6H PRN PRN Reason: Fever >101.5 Stop: 06/29/24 17:20 Dextrose (Dextrose 50%-Water Inj 50 Ml Syringe) 50 ml IV Q15MIN PRN PRN Reason: BG <50 OR BG <70 & pt unresponsive Stop: 06/29/24 17:35 Glucagon (Glucagon Inj 1 Mg Vial) 1 mg IM Q15MIN PRN PRN Reason: BG <70, and no IV access Heparin Sodium (Porcine) (Heparin Sod Inj 5000 Unit/Ml Vial) 5,000 unit SC Q8HR PENDING SALE TO [facility] Stop: 06/13/24 21:59 Sodium Chloride (Ns) 1,000 mls @ 75 mls/hr IV .[id number] PENDING SALE TO [facility] Stop: 06/29/24 17:29 Ceftriaxone Sodium 1,000 mg/ (Sodium Chloride) 50 mls @ 100 mls/hr IV QDAY PENDING SALE TO [facility] Stop: 06/07/24 08:59 Insulin Human Lispro (Insulin Lispro (Admelog) 1 Unit/0.01 Ml Unit) 0 unit SC AC PENDING SALE TO [facility]; Protocol Stop: 06/30/24 07:29 Memantine (Memantine Hcl 5 Mg Tablet) 5 mg PO BID PENDING SALE TO [facility] Stop: 06/29/24 20:59 Metoclopramide HCl (Metoclopramide 5 Mg Tablet) 10 mg PO Q6H PRN PRN Reason: NAUSEA OR VOMITING Stop: 06/29/24 17:20 Pantoprazole Sodium (Pantoprazole 40 Mg Tablet) 40 mg PO QDAY PENDING SALE TO [facility] Stop: 06/30/24 08:59 Pravastatin Sodium (Pravastatin Sodium 10 Mg Tablet) 40 mg PO HS PENDING SALE TO [facility] Stop: 06/29/24 20:59 Vitamin B Complex/Vit C/Folic Acid (Vit B12/Vit C/Fa (Nephrovite) Tablet) 1 tab PO QDAY PENDING SALE TO [facility] Stop: 06/30/24 08:59 Discontinued Medications Sodium Chloride (Ns) 1,000 mls @ 999 mls/hr IV .Q1H1M ONE Stop: 05/30/24 14:39 Last Admin: 05/30/24 14:56 Dose: 999 mls/hr Ceftriaxone Sodium 1,000 mg/ (Sodium Chloride) 50 mls @ 100 mls/hr IV NOW ONE Stop: 05/30/24 15:44 Assessment & Plan Plan 83-year-old female patient with significant medical history CHF, CAD SP PCI, CKD HTN, DM2, dementia and diverticulosis admitted for symptomatic UTI and IHSAN on CKD. #Symptomatic UTI #Cystitis #Outpatient treatment failure Patient with symptoms of intermittent fever, chills and vomiting Patient administered multiple p.o. antibiotics with persistent symptoms Urine analysis indicated UTI Labs significant for leukocytosis and elevated procalcitonin Plan: Admit to telemetry Maintenance IV fluid Start IV cefepime Urine cultures Tylenol for fever Follow-up CBC #IHSAN on CKD Patient follows up with enforcement officer Dr Sky On admission patient with creatinine of 2.1 (baseline 1.3) Per daughter patient has had decreased p.o. intake over the last few days Patient received 1 L bolus IVF Plan: Maintenance IVF Avoid nephrotoxin Renally dose medications Nephrology Dr. Sky consulted, recommendations are greatly appreciated Follow-up renal panels #? Acute upper GI bleed Per daughter patient had an episode of dark-colored emesis Hemoglobin has decreased from 10.2-9 since yesterday Plan: Protonix Follow-up morning CBC If further decline in hemoglobin we will consult GI and do further workup #Dementia Patient with history of dementia and follows up with neurologist Dr. Trujillo Plan: Restart home medications after reconciliation #CAD SP stents #CHF Patient with history of coronary stents Patient follows up with television picture tube rebuilder Dr. Urbina Admission labs significant for elevated troponin 0.456, BNP 1648 Patient currently not exacerbated Plan: Resume home meds after reconciliation Ins and outs Low-salt cardiac diet #Hypertension Patient currently hypotensive Plan: Withhold antihypertensive medication in setting of low BP #DM2 Patient with history of diabetes and on Januvia home med Plan: SSI plus Accu-Cheks Maintain inpatient glucose between 1 40-1 80 Health Maintenance Dispo: Patient admitted for symptomatic UTI requiring IV antibiotics, nephrology consulted Diet: Cardiac DVT/PPx: Heparin GI ppx: Protonix Lines: PIV Code Status: Full code This patient care was discussed with my attending Dr. Padmaja Thompson MD PGY-2 Disclaimer: Minor errors in lot associate may be present since this note was dictated by speech recognition software. Attending Provider Attestation/Addendum I attest that I was physically present for the evaluation, physical examination, lab and imaging review of the patient with the residents. I discussed the case with the residents and agree with the findings and plans of care as documented above. Mansi Giang MD
[2024-05-30 18:01] VITALS: BP 96/63; PULSE 72; RESP 17; TEMP 36.8; O2SAT 95
--- NOTE | 2024-05-30 18:03 | PD.NEPHCONS ---
History of Present Illness Data of Consult Consult date: 05/30/24 Requesting Physician: Mansi Giang MD Primary Care Provider: Kaleb Sky MD Consult Narrative Reason for consult: IHSAN History of present illness: Informant daughter Ms. Chandra is a 83-year-old female patient with significant medical history for hypertension, diabetes type 2, dementia, CKD III under my care,CHF/ CAD with PTCA/stents under the care of Dr. Urbina has been having urinary tract symptoms for the last 2 weeks. Patient went to [facility] and initially received Macrobid 100 mg p.o. twice daily for 5 days. The symptoms did not get better and daughter took her back to [facility] where she was given Bactrim. Nausea, vomiting, fevers that the daughter brought her to the emergency department yesterday. She was given fluids, Rocephin and discharged. Brought her back today with a hypotension and not feeling well.Patient has also been having decreased p.o. intake over the last few days. In ED today, vitals were significant for BP 90/57, afebrile and saturating 100% on 6 L nasal cannula. WBC had increased from 15-23 .8since yesterday and hemoglobin have decreased from 10.2-9. Labs were significant for NA 135, K3.7, BUN 36, CONVEYOR CONSOLE OPERATOR 2.1 (baseline 1.3), EGFR 23, glucose 174, Trope 0.456, BNP 1648 and procalcitonin 30.2. LFTs normal. Urine tox screen negative. Urinalysis indicated 242 WBC, leukocyte esterase positive and negative urine bacteria. Chest x-ray reading showed early bibasilar pneumonia. Patient was admitted for symptomatic UTI requiring IV antibiotics and IHSAN on CKD. Renal consultation requested for acute renal failure. Patient currently seen in the emergency department. Home medications included Basaglar, Plavix, dicyclomine, furosemide, glipizide, lisinopril, potassium, verapamil, pravastatin, Bactrim. cc:: cc: Mansi Giang MD Review of Systems Review of Systems Narrative Review of Systems: CONSTITUTIONAL: Patient had fever, chills, fatigue HEENT: Patient has hearing problems CARDIOVASCULAR: Patient denies any chest pain, shortness of breath, swelling in the lower extremities. PULMONARY: Patient denies any shortness of breath, cough. GASTROINTESTINAL: Denies any abdominal pain. Complaining of decreased p.o. intake, nausea GENITOURINARY: Did have urinary symptoms of burning and frequency. SKIN: Denies any rash. MUSCULOSKELETAL: Complaining of gait imbalance, arthritis NEUROLOGICAL: Denies any neurological problems of strokes, seizures or confusion. Denies any memory problems. Past Medical History Past Medical History NEUROLOGIC: Positive Dementia; Negative Seizures CARDIAC: Positive Myocardial Infarction, Hypercholesterolemia, Cellulitis and Hypertension; Negative Cardiac Disorders or Congestive Heart Failure RESPIRATORY: Negative Chronic Obstructive Pulmonary Disease (COPD) or Asthma GASTROINTESTINAL: Positive Diverticulitis; Negative Gastrointestinal Bleed, Hemorrhoids or Gastroesophageal Reflux Disease GENITOURINARY: Positive Genitourinary Disorders; Negative Renal Disease REPRODUCTIVE: Positive Previous Pregnancies MUSCULOSKELETAL: Positive Arthritis, Osteoporosis and Fractures ENDOCRINE: Negative Diabetes Mellitus Type 1 or Diabetes Mellitus Type 2 HEMATOLOGIC: Negative Sickle Cell Disease PSYCHO/SOCIAL: Negative Depression or Anxiety OTHER HISTORY: Positive Chicken Pox; Negative Autoimmune Disease, Falls, Blood Transfusions, Blood Transfusion Reaction or Cancer Family History FAMILY HISTORY: Negative Family Psychiatric Problems, Family Respiratory Disorders, Family Cardiac Disorders, Family Gastrointestinal Problems, Family Cancer, Family Surgery or Family Anesthesia Reaction Surgical History SURGICAL: Positive Coronary Stent Social History SMOKING STATUS: Former smoker SUBSTANCE USE: does not use Meds Home Medications and Allergies Home Medications ?Medication ?Instructions ?Recorded ?Confirmed ?Type verapamil 240 mg tablet,extended 240 mg PO QDAY 05/02/20 08/01/21 History release albuterol sulfate 90 mcg/actuation 2 puff inhalation Q6H 02/15/21 08/01/21 History aerosol inhaler insulin glargine 100 unit/mL (3 10 unit subcut QPM 02/15/21 08/01/21 History mL) subcutaneous pen (Basaglar KwikPen U-100 Insulin) lisinopril 20 mg tablet 20 mg PO QDAY 02/15/21 08/01/21 History clopidogrel 75 mg tablet 75 mg PO QDAY 08/01/21 08/01/21 History furosemide 40 mg tablet 40 mg PO QAM 08/01/21 08/01/21 History glipizide 5 mg tablet 5 mg PO QDAY 08/01/21 08/01/21 History nitroglycerin 0.4 mg sublingual 0.4 mg buccal [id number] PRN Chest 08/01/21 08/01/21 History tablet Pain potassium chloride 10 mEq 10 meq PO BID 08/01/21 08/01/21 History capsule,extended release pravastatin 40 mg tablet 40 mg PO QDAY 08/01/21 08/01/21 History Allergies Allergy/AdvReac Type Severity Reaction Status Date / Time erythromycin base Allergy Severe DIFF Verified 05/30/24 11:35 BREATHING latex Allergy Severe RASH AND Verified 05/30/24 11:35 ITCHING Penicillins Allergy Severe ITCHING Verified 05/30/24 11:35 tetracycline Allergy Severe RASH Verified 05/30/24 11:35 Exam Vital Signs Temp Pulse Resp BP Pulse Ox O2 Del Method O2 Flow Rate 36.8 C 72 20 96/63 95 Nasal Cannula 1 05/30/24 18:01 05/30/24 19:07 05/30/24 19:07 05/30/24 18:01 05/30/24 18:01 05/30/24 18:01 05/30/24 19:07 Narrative Exam GENERAL APPEARANCE: Elderly lady currently seen in the emergency department. Dr. Giang at bedside daughter at bedside Dry mucosa NECK: Neck supple, no JVD or bruit CARDIOVASCULAR: Heart regular, no murmurs LUNGS/CHEST: Chest clear to auscultation. No rales, rhonchi, wheezing ABDOMEN: Soft, nontender, nondistended. No masses. Normal bowel sounds. EXTREMITIES: No edema, clubbing or cyanosis. SKIN: Skin exam normal without any rashes MUSCULOSKELETAL: Musculoskeletal exam normal PSYCHIATRIC: Normal mood, affect LYMPHATICS: No lymphadenopathy noted NEUROLOGICAL : No neurological deficits Results Labs 05/30/24 12:30 05/30/24 12:30 Labs: Short CBC 05/30/24 Range/Units 12:30 WBC 23.8 H D (3.6-11.0) Thou/mm3 Hgb 9.0 L (12.0-16.0) g/dL Hct 26.6 L (36.0-46.0) % Plt Count 240 D (140-440) Thou/mm3 BMP 05/30/24 12:30 Sodium 135 L Potassium 3.7 Chloride 102 Carbon Dioxide 21.6 BUN 36 H Creatinine 2.1 H Glucose 174 H D Calcium 8.5 Cardiac Enzymes 05/30/24 05/30/24 Range/Units 12:30 19:08 Troponin I 0.498 H* 0.456 H* (0.0-0.045) ng/mL Liver Function 05/30/24 Range/Units 12:30 Total Bilirubin 0.2 L (0.3-1.2) mg/dL AST 26 (0-34) U/L ALT 17 (10-49) U/L Alkaline Phosphatase 69 D (46-116) U/L Albumin 3.1 L D (3.4-4.8) gm/dL Urine 05/30/24 Range/Units 14:51 Urine Color Yellow (Lt Yel-Yel) Urine Clarity Turbid A (Clear/Hazy) Urine pH 5.5 (5.0-7.0) Ur Specific [place] 1.019 (1.001-1.035) Urine Protein 1+ A (Neg - Trace) Urine Glucose (UA) Negative (Negative) Assessment & Plan Assessment and plan (1) IHSAN (acute kidney injury): Status: Acute Assessment and plan: Acute on chronic renal insufficiency secondary to prerenal azotemia. Agree with IV fluids. Urine electrolytes, renal ultrasound ordered. Strict I&O's ordered. (2) UTI (urinary tract infection): Status: Acute Assessment and plan: On broad-spectrum antibiotics pending cultures. (3) Pneumonia: Status: Acute (4) Elevated troponin: Status: Acute Assessment and plan: Patient denies any chest pain. Most likely stress response. (5) Hypotension: Status: Acute Assessment and plan: Hold blood pressure medications. IV fluids were given (6) Diabetes mellitus: Status: Acute Assessment and plan: Accu-Cheks, sliding scale. (7) Sepsis: Status: Acute Assessment and plan: Sepsis most likely related to UTI. Pending cultures IV fluids, antibiotics given. Additional Assessment & Plan Additional Plan: Thank you Mansi for allowing me to participate in the care of Ms. Chandra
[2024-05-30] MEDS: cefTRIAXone 1,000 MG in SODIUM CHLORIDE 0.9% (P) 50 ML 100 MG IV (18:48)
[2024-05-30] MEDS: SODIUM CHLORIDE 0.9% 1000 ML 1,000 ML 75 ML IV (18:49)
--- NOTE | 2024-05-30 18:49 | PC.NURSE ---
DR SOUTH AWARE OF UPGRADE NEEDED DUE TO ELEVATED TROP. STATES HE WILL PUT THE ORDER IN TO UPGRADE
[2024-05-30 19:07] VITALS: PULSE 72; RESP 20; RESP 96
[2024-05-30 19:40] LABS: Troponin I 0.456 ng/mL (0.0-0.045)
[2024-05-30] MEDS: CEFEPIME INJ 1 GM in SODIUM CHLORIDE 0.9% 50 ML IV (20:00)
[2024-05-31] VITALS (9 sets, daily range): BP systolic 120–141; BP diastolic 67–95; PULSE 73–90; RESP 14–97; TEMP 36.1–36.8; O2SAT 93–98; BMI 11.0
[2024-05-31 04:52] LABS: Basophils # (Auto) 0.1 Thou/mm3 (0.0-0.2); Basophils % (Auto) 1 % (0-2.5); Eosinophils # (Auto) 0.2 Thou/mm3 (0.0-0.5); Eosinophils % (Auto) 1 % (0-10); Hematocrit 27.5 % (36.0-46.0); Hemoglobin 9.2 g/dL (12.0-16.0); Immature Granulocytes % (Auto) 1 % (0-0); Immature Granulocytes Auto 0.16 Thou/mm3 (0.00-0.00); Lymphocytes # (Auto) 1.4 Thou/mm3 (1.0-4.8); Lymphocytes % (Auto) 8 % (10-50); Mean Corpuscular HGB Conc 33.5 g/dl (31.0-37.0); Mean Corpuscular Hemoglobin 29.8 pg (25.0-35.0); Mean Corpuscular Volume 89 fL (80-100); Monocytes # (Auto) 1.2 Thou/mm3 (0.0-0.8); Monocytes % (Auto) 6 % (0-12); Neutrophils # (Auto) 15.2 Thou/mm3 (1.8-7.7); Neutrophils % (Auto) 84 % (37-80); Nucleated Red Blood Cell % 0 /100 WBC (0); Platelet Count 242 Thou/mm3 (140-440); Red Blood Count 3.09 Miln/mm3 (4.00-5.20); White Blood Count 18.2 Thou/mm3 (3.6-11.0)
[2024-05-31 05:14] LABS: Alanine Aminotransferase 20 U/L (10-49); Albumin, Serum 3.1 gm/dL (3.4-4.8); Albumin/Globulin Ratio 1.3 (1.2-2.2); Alkaline Phosphatase 65 U/L (46-116); Anion Gap 9 (7-16); Aspartate Amino Transferase 28 U/L (0-34); BUN/Creatinine Ratio 18 Ratio (12-20); Blood Urea Nitrogen 34 mg/dL (9-23); Calcium 8.4 mg/dL (8.3-10.6); Calcium (Corrected) 9.1 mg/dL (8.5-10.1); Carbon Dioxide 22.2 mMol/L (20.0-31.0); Chloride 111 mMol/L (98-107); Creatinine (Component) 1.9 mg/dL (0.6-1.3); Globulin 2.4 gm/dL (2.3-3.5); Glucose 87 mg/dL (74-106); Osmolality,Calculated 289 (275-295); Phosphorous 3.3 mg/dL (2.4-5.1); Potassium 3.6 mMol/L (3.4-5.1); Sodium 142 mMol/L (136-145); Total Protein 5.5 gm/dL (5.7-8.2); eGFR 26 See Note
[2024-05-31 05:15] LABS: Bilirubin,Total < 0.2 mg/dL (0.3-1.2)
[2024-05-31] MEDS: HEPARIN SOD INJ 5000 UNIT/ML VIAL SC ×3 (05:57→21:18)
--- NOTE | 2024-05-31 07:23 | PC.NURSE ---
Report received from pm nurse, patient lying in gurney queitly with eyes open no distress noted, patient admitted to m/t awaiting bed in the er. Currently, patient skin is warm dry and slightly pale, patient denies pain, patient alert and oriented x 3, however, intermittently confused, patient not sure why she came to the er and states her daughter brought her here, patient has no other need at this time, VSS. Call light within reach.
[2024-05-31] MEDS: CEFEPIME INJ 1 GM in SODIUM CHLORIDE 0.9% 50 ML IV (08:41)
[2024-05-31] MEDS: MEMANTINE HCL 5 MG TABLET PO ×2 (08:42→20:32)
[2024-05-31] MEDS: PANTOPRAZOLE 40 MG TABLET PO (08:42)
[2024-05-31] MEDS: SODIUM CHLORIDE 0.9% 1000 ML 1,000 ML 75 ML IV (08:43)
--- NOTE | 2024-05-31 09:04 | PC.NURSE ---
Patient soiled of urine, linen changed, walked patient to bathroom and she was able to use toilet with assistance, clean dry brief applied to patient and [facility], call light placed within reach, patient has no other needs at this time.
--- NOTE | 2024-05-31 10:06 | ESPR_ITS ---
Documentation for date of: 05/31/24 Subjective Subjective Interval history: Informant daughter Ms. Chandra is a 83-year-old female patient with significant medical history for hypertension, diabetes type 2, dementia, CKD III under my care,CHF/ CAD with PTCA/stents under the care of Dr. Urbina has been having urinary tract symptoms for the last 2 weeks. Patient went to [facility] clinic and initially received Macrobid 100 mg p.o. twice daily for 5 days. The symptoms did not get better and daughter took her back to [facility] clinic where she was given Bactrim. Nausea, vomiting, fevers that the daughter brought her to the emergency department yesterday. She was given fluids, Rocephin and discharged. Brought her back today with a hypotension and not feeling well.Patient has also been having decreased p.o. intake over the last few days. In ED today, vitals were significant for BP 90/57, afebrile and saturating 100% on 6 L nasal cannula. WBC had increased from 15-23 .8since yesterday and hemoglobin have decreased from 10.2-9. Labs were significant for NA 135, K3.7, BUN 36, LINK TRA[employer]IC 2.1 (baseline 1.3), EGFR 23, glucose 174, Trope 0.456, BNP 1648 and procalcitonin 30.2. LFTs normal. Urine tox screen negative. Urinalysis indicated 242 WBC, leukocyte esterase positive and negative urine bacteria. Chest x-ray reading showed early bibasilar pneumonia. Patient was admitted for symptomatic UTI requiring IV antibiotics and IHSAN on CKD. Renal consultation requested for acute renal failure. Patient currently seen in the emergency department. Home medications included Basaglar, Plavix, dicyclomine, furosemide, glipizide, lisinopril, potassium, verapamil, pravastatin, Bactrim. 05/31/2024 patient currently seen in medical floor. Resting comfortably. Having lunch. Blood pressure 122/83, heart rate 73. Blood sugar 84. White count improved to 18.2, hemoglobin 9.2, platelets 242. Sodium 142, potassium 3.6, BUN 34, creatinine 1.9, lactic acid 1.5, phosphorus 3.3, magnesium 2, LFTs normal, troponin 0.4 CT abdomen yesterday showed no hydronephrosis. Did show atrophic left kidney. Renal ultrasound ordered. Blood cultures, urine cultures pending. Review of Systems Review of Systems Narrative Review of Systems: CONSTITUTIONAL: Patient denies any fever or chills HEENT: Patient has hearing problems CARDIOVASCULAR: Patient denies any chest pain, shortness of breath, swelling in the lower extremities. PULMONARY: Patient denies any shortness of breath, cough. GASTROINTESTINAL: Denies any abdominal pain. Complaining of decreased p.o. intake, nausea GENITOURINARY: Did have urinary symptoms of burning and frequency. Today she seems to be better SKIN: Denies any rash. MUSCULOSKELETAL: Complaining of gait imbalance, arthritis NEUROLOGICAL: Denies any neurological problems of strokes, seizures or confusion. Denies any memory problems. Exam Vital Signs Temp Pulse Resp BP Pulse Ox O2 Del Method O2 Flow Rate 36.7 C 75 17 136/78 H 97 Room Air 3 05/31/24 10:05/31/24 10:05/31/24 10:05/31/24 10:05/31/24 10:05/31/24 10:05/31/24 07:14 Narrative Exam GENERAL APPEARANCE: Elderly lady currently seen in medical floor Dry mucosa NECK: Neck supple, no JVD or bruit CARDIOVASCULAR: Heart regular, no murmurs LUNGS/CHEST: Chest clear to auscultation. No rales, rhonchi, wheezing ABDOMEN: Soft, nontender, nondistended. No masses. Normal bowel sounds. EXTREMITIES: No edema, clubbing or cyanosis. SKIN: Skin exam normal without any rashes MUSCULOSKELETAL: Musculoskeletal exam normal PSYCHIATRIC: Normal mood, affect LYMPHATICS: No lymphadenopathy noted NEUROLOGICAL : No neurological deficits Objective Labs 05/31/24 04:34 05/31/24 04:34 Labs: Laboratory Results - last 24 hr 05/30/24 05/30/24 05/30/24 12:30 14:15 14:51 WBC 23.8 H D RBC 3.02 L Hgb 9.0 L Hct 26.6 L MCV 88 MCH 29.8 MCHC 33.8 RDW Std Deviation 49.9 H Plt Count 240 D Neut % (Auto) 90 H Lymph % (Auto) 3 L [place] % (Auto) 5 Eos % (Auto) 1 Baso % (Auto) 0 Neut # (Auto) 21.3 H Lymph # (Auto) 0.7 L [place] # (Auto) 1.3 H Eos # (Auto) 0.2 Baso # (Auto) 0.1 Immature Gran # (Auto) 0.32 H Absolute Nucleated RBC 0.00 Immature Gran % 1 H Nucleated RBC % 0 PT 12.6 H INR 1.2 APTT 26.2 Sodium 135 L Potassium 3.7 Chloride 102 Carbon Dioxide 21.6 Anion Gap 11 BUN 36 H Creatinine 2.1 H Estim Creat Clear Calc 16.3 L eGFR 23 L BUN/Creatinine Ratio 17 Glucose 174 H D Calculated Osmolality 282 Lactic Acid 1.5 Calcium 8.5 Corrected Calcium 9.2 Phosphorus Magnesium 2.0 Total Bilirubin 0.2 L AST 26 ALT 17 Alkaline Phosphatase 69 D Lactate Dehydrogenase 177 Troponin I 0.498 H* B-Natriuretic Peptide 1648 H* Total Protein 5.4 L Albumin 3.1 L D Globulin 2.3 Albumin/Globulin Ratio 1.3 Procalcitonin 30.20 H Ur Collection Type Clean Catch Urine Color Yellow Urine Clarity Turbid A Urine pH 5.5 Ur Specific [place] 1.019 Urine Protein 1+ A Urine Glucose (UA) Negative Urine Ketones Negative Urine Blood 1+ A Urine Nitrite Negative Urine Bilirubin Negative Urine Urobilinogen (Auto) Negative Ur Leukocyte Esterase Positive Urine RBC 5 H Urine WBC 242 H Ur Squamous Epith Cells < 1 Urine Bacteria None Urine Opiates Screen Negative Urine Fentanyl Screen Negative Ur Barbiturates Screen Negative U Amphetamin/Meth Scrn Negative U Benzodiazepines Scrn Negative U Cocaine Metab Screen Negative U Marijuana (THC) Screen Negative 05/30/24 05/31/24 19:08 04:34 WBC 18.2 H D RBC 3.09 L Hgb 9.2 L Hct 27.5 L MCV 89 MCH 29.8 MCHC 33.5 RDW Std Deviation 51.0 H Plt Count 242 Neut % (Auto) 84 H Lymph % (Auto) 8 L [place] % (Auto) 6 Eos % (Auto) 1 Baso % (Auto) 1 Neut # (Auto) 15.2 H Lymph # (Auto) 1.4 [place] # (Auto) 1.2 H Eos # (Auto) 0.2 Baso # (Auto) 0.1 Immature Gran # (Auto) 0.16 H Absolute Nucleated RBC 0.00 Immature Gran % 1 H Nucleated RBC % 0 PT INR APTT Sodium 142 Potassium 3.6 Chloride 111 H Carbon Dioxide 22.2 Anion Gap 9 BUN 34 H Creatinine 1.9 H Estim Creat Clear Calc 18.0 L eGFR 26 L BUN/Creatinine Ratio 18 Glucose 87 D Calculated Osmolality 289 Lactic Acid Calcium 8.4 Corrected Calcium 9.1 Phosphorus 3.3 Magnesium 2.0 Total Bilirubin < 0.2 L AST 28 ALT 20 Alkaline Phosphatase 65 Lactate Dehydrogenase Troponin I 0.456 H* B-Natriuretic Peptide Total Protein 5.5 L Albumin 3.1 L Globulin 2.4 Albumin/Globulin Ratio 1.3 Procalcitonin Ur Collection Type Urine Color Urine Clarity Urine pH Ur Specific [place] Urine Protein Urine Glucose (UA) Urine Ketones Urine Blood Urine Nitrite Urine Bilirubin Urine Urobilinogen (Auto) Ur Leukocyte Esterase Urine RBC Urine WBC Ur Squamous Epith Cells Urine Bacteria Urine Opiates Screen Urine Fentanyl Screen Ur Barbiturates Screen U Amphetamin/Meth Scrn U Benzodiazepines Scrn U Cocaine Metab Screen U Marijuana (THC) Screen Assessment & Plan Assessment and plan (1) IHSAN (acute kidney injury): Status: Acute (2) UTI (urinary tract infection): Status: Acute (3) Pneumonia: Status: Acute (4) Elevated troponin: Status: Acute (5) Hypotension: Status: Acute (6) Diabetes mellitus: Status: Acute (7) Sepsis: Status: Acute Additional Assessment & Plan Additional Plan: (1) IHSAN (acute kidney injury): Status: Acute Assessment and plan: Acute on chronic renal insufficiency secondary to prerenal azotemia. Agree with IV fluids. Urine electrolytes, renal ultrasound ordered. Strict I&O's ordered. Creatinine better at 1.9. CT showed atrophic right kidney. (2) UTI (urinary tract infection): Status: Acute Assessment and plan: On broad-spectrum antibiotics pending cultures. (3) Pneumonia: Status: Acute (4) Elevated troponin: Status: Acute Assessment and plan: Patient denies any chest pain. Most likely stress response. (5) Hypotension: Status: Acute Assessment and plan: Hold blood pressure medications. IV fluids were given (6) Diabetes mellitus: Status: Acute Assessment and plan: Accu-Cheks, sliding scale. (7) Sepsis: Status: Acute Thank you Mansi for allowing me to participate in the care of Ms. Chandra Quality - progress note Quality Measures Quality Measures: VTE prophylaxis Reason for Continued Stay Reason for Continued Stay: further monitoring
--- NOTE | 2024-05-31 12:55 | ESPR_ITS ---
<Statement entered by Peterson Thompson MD - 06/01/24 13:46> I discussed with and supervised the internal specialist physician involved in the care of this patient. Patient assessment and plan was discussed with entire medicine team, including my attending. I agree with the assessment and plan as documented by internal specialist doctor. Patient care was discussed with my attending physician Dr. Padmaja Thompson, PGY-2 Documentation for date of: 05/31/24 Subjective Subjective Interval history: 05/31/2024: No acute overnight events to report. Patient seen and examined in hospital bed, denies having any concerning symptoms. Continues to be treated with IV antibiotics and pending urine/blood cultures. Nephrology following; appreciate recommendations. U/S Kidney shows small kidneys with bilateral renal cortical thinning, moderate bilateral renal parenchyma scar formation, and no hydronephrosis. Exam Vital Signs Temp Pulse Resp BP Pulse Ox O2 Del Method O2 Flow Rate 97.7 F 73 17 122/83 95 Room Air 3 05/31/24 12:05/31/24 12:05/31/24 12:05/31/24 12:05/31/24 12:05/31/24 12:05/31/24 07:14 Narrative Exam Constitutional: Frail looking elderly woman, in no acute distress, lying in bed HEENT: NCAT, EOMI, reactive round pupils b/l, patent nares b/l, moist mucous membranes Lung: CTAB, no wheezing, no rhonchi Heart: Regular S1S2, no murmurs, gallops, or rubs Abdomen: Soft, non-distended, non-tender, bowel sounds present throughout Extremities: No cyanosis, clubbing, or edema, LE pulses present b/l Neurologic: No focal sensory or motor deficits noted, AOx1, appropriate affect Skin: Warm, dry, no lesions or rashes noted Objective Labs 06/01/24 05:09 06/01/24 05:09 Labs: Laboratory Results - last 24 hr 05/30/24 05/30/24 05/30/24 12:30 14:15 14:51 WBC 23.8 H D RBC 3.02 L Hgb 9.0 L Hct 26.6 L MCV 88 MCH 29.8 MCHC 33.8 RDW Std Deviation 49.9 H Plt Count 240 D Neut % (Auto) 90 H Lymph % (Auto) 3 L [place] % (Auto) 5 Eos % (Auto) 1 Baso % (Auto) 0 Neut # (Auto) 21.3 H Lymph # (Auto) 0.7 L [place] # (Auto) 1.3 H Eos # (Auto) 0.2 Baso # (Auto) 0.1 Immature Gran # (Auto) 0.32 H Absolute Nucleated RBC 0.00 Immature Gran % 1 H Nucleated RBC % 0 PT 12.6 H INR 1.2 APTT 26.2 Sodium 135 L Potassium 3.7 Chloride 102 Carbon Dioxide 21.6 Anion Gap 11 BUN 36 H Creatinine 2.1 H Estim Creat Clear Calc 16.3 L eGFR 23 L BUN/Creatinine Ratio 17 Glucose 174 H D Calculated Osmolality 282 Lactic Acid 1.5 Calcium 8.5 Corrected Calcium 9.2 Phosphorus Magnesium 2.0 Total Bilirubin 0.2 L AST 26 ALT 17 Alkaline Phosphatase 69 D Lactate Dehydrogenase 177 Troponin I 0.498 H* B-Natriuretic Peptide 1648 H* Total Protein 5.4 L Albumin 3.1 L D Globulin 2.3 Albumin/Globulin Ratio 1.3 Procalcitonin 30.20 H Ur Collection Type Clean Catch Urine Color Yellow Urine Clarity Turbid A Urine pH 5.5 Ur Specific [place] 1.019 Urine Protein 1+ A Urine Glucose (UA) Negative Urine Ketones Negative Urine Blood 1+ A Urine Nitrite Negative Urine Bilirubin Negative Urine Urobilinogen (Auto) Negative Ur Leukocyte Esterase Positive Urine RBC 5 H Urine WBC 242 H Ur Squamous Epith Cells < 1 Urine Bacteria None Urine Opiates Screen Negative Urine Fentanyl Screen Negative Ur Barbiturates Screen Negative U Amphetamin/Meth Scrn Negative U Benzodiazepines Scrn Negative U Cocaine Metab Screen Negative U Marijuana (THC) Screen Negative 05/30/24 05/31/24 19:08 04:34 WBC 18.2 H D RBC 3.09 L Hgb 9.2 L Hct 27.5 L MCV 89 MCH 29.8 MCHC 33.5 RDW Std Deviation 51.0 H Plt Count 242 Neut % (Auto) 84 H Lymph % (Auto) 8 L [place] % (Auto) 6 Eos % (Auto) 1 Baso % (Auto) 1 Neut # (Auto) 15.2 H Lymph # (Auto) 1.4 [place] # (Auto) 1.2 H Eos # (Auto) 0.2 Baso # (Auto) 0.1 Immature Gran # (Auto) 0.16 H Absolute Nucleated RBC 0.00 Immature Gran % 1 H Nucleated RBC % 0 PT INR APTT Sodium 142 Potassium 3.6 Chloride 111 H Carbon Dioxide 22.2 Anion Gap 9 BUN 34 H Creatinine 1.9 H Estim Creat Clear Calc 18.0 L eGFR 26 L BUN/Creatinine Ratio 18 Glucose 87 D Calculated Osmolality 289 Lactic Acid Calcium 8.4 Corrected Calcium 9.1 Phosphorus 3.3 Magnesium 2.0 Total Bilirubin < 0.2 L AST 28 ALT 20 Alkaline Phosphatase 65 Lactate Dehydrogenase Troponin I 0.456 H* B-Natriuretic Peptide Total Protein 5.5 L Albumin 3.1 L Globulin 2.4 Albumin/Globulin Ratio 1.3 Procalcitonin Ur Collection Type Urine Color Urine Clarity Urine pH Ur Specific [place] Urine Protein Urine Glucose (UA) Urine Ketones Urine Blood Urine Nitrite Urine Bilirubin Urine Urobilinogen (Auto) Ur Leukocyte Esterase Urine RBC Urine WBC Ur Squamous Epith Cells Urine Bacteria Urine Opiates Screen Urine Fentanyl Screen Ur Barbiturates Screen U Amphetamin/Meth Scrn U Benzodiazepines Scrn U Cocaine Metab Screen U Marijuana (THC) Screen Quality Measures Quality Measures none Advance care planning discussed with:: patient and child Assessment & Plan Assessment Current Active Medications: Generic Name Dose Route Start Last Admin Trade Name Freq PRN Reason Stop Dose Admin Acetaminophen 650 mg 05/30/24 17:21 Acetaminophen 325 Mg Tablet PO 06/29/24 17:20 Q6H PRN Fever >101.5 Dextrose 50 ml 05/30/24 17:36 Dextrose 50%-Water Inj 50 Ml Syringe IV 06/29/24 17:35 Q15MIN PRN BG <50 OR BG <70 & pt unresponsive Glucagon 1 mg 05/30/24 17:36 Glucagon Inj 1 Mg Vial IM Q15MIN PRN BG <70, and no IV access Heparin Sodium (Porcine) 5,000 unit 05/30/24 22:00 05/31/24 05:57 Heparin Sod Inj 5000 Unit/Ml Vial SC 06/13/24 21:59 5,000 unit Q8HR SHYLA Administration Sodium Chloride 1,000 mls @ 75 mls/hr 05/30/24 17:30 05/31/24 08:43 Ns IV 06/29/24 17:29 75 mls/hr .[id number] SHYLA Administration Cefepime HCl 1 gm/ Sodium 50 mls @ 100 mls/hr 05/30/24 18:38 05/31/24 09:19 Chloride IV 06/06/24 18:37 Infused Q12HR SHYLA Infusion Insulin Human Lispro 0 unit 05/31/24 07:30 05/31/24 11:47 Insulin Lispro (Admelog) 1 Unit/0.01 Ml Unit SC 06/30/24 07:29 Not Given AC [facility] Protocol Memantine 5 mg 05/30/24 21:00 05/31/24 08:42 Memantine Hcl 5 Mg Tablet PO 06/29/24 20:59 5 mg BID SHYLA Administration Metoclopramide HCl 10 mg 05/30/24 17:21 Metoclopramide 5 Mg Tablet PO 06/29/24 17:20 Q6H PRN NAUSEA OR VOMITING Pantoprazole Sodium 40 mg 05/31/24 09:00 05/31/24 08:42 Pantoprazole 40 Mg Tablet PO 06/30/24 08:59 40 mg QDAY [facility] Administration Pharmacy Consult 1 each 05/31/24 09:58 Pharmacy To Consult Pneumovacc XX 06/30/24 09:57 PRN PRN CONSULT Pravastatin Sodium 40 mg 05/30/24 21:00 05/31/24 04:02 Pravastatin Sodium 10 Mg Tablet PO 06/29/24 20:59 Not Given [facility] Vitamin B Complex/Vit C/Folic Acid 1 tab 05/31/24 09:00 05/31/24 10:33 Vit B12/Vit C/Fa (Nephrovite) Tablet PO 06/30/24 08:59 Not Given QDAY SHYLA Plan 83-year-old female patient with significant medical history CHF, CAD SP PCI, CKD HTN, DM2, dementia and diverticulosis admitted for symptomatic UTI and IHSAN on CKD. #Symptomatic UTI #Cystitis Patient with symptoms of intermittent fever, chills and vomiting Patient administered multiple p.o. antibiotics with persistent symptoms Urine analysis indicated UTI Labs significant for leukocytosis and elevated procalcitonin Plan: Continue IV cefepime, Day 2 Urine and blood cultures pending #IHSAN on CKD Patient follows up with title supervisor Dr Sky On admission patient with creatinine of 2.1 (baseline 1.3) Per daughter patient has had decreased p.o. intake over the last few days Patient received [address] abdomen yesterday showed no hydronephrosis. Did show atrophic left kidney. Renal ultrasound ordered showed small kidneys with bilateral renal cortical thinning, moderate bilateral renal parenchyma scar formation, and no hydronephrosis Plan: Maintenance IVF Avoid nephrotoxin Renally dose medications Nephrology Dr. Sky consulted, recommendations are greatly appreciated Follow-up renal panels #Possible acute upper GI bleed, less likely Per daughter patient had an episode of dark-colored emesis Hemoglobin has decreased from 10.2-9 since yesterday Hemoglobin up trended from 9.0-9.2 Plan: Continue Protonix for now as the patient is not eating well enough, 25% meal inquiry Will continue monitor morning labs #Dementia Patient with history of dementia and follows up with neurologist Dr. Trujillo Plan: Continue home medications after reconciliation #CAD SP stents #CHF Patient with history of coronary stents Patient follows up with fibre optics jointer Dr. Urbina Admission labs significant for elevated troponin 0.456, BNP 1648 Patient currently not exacerbated Plan: Resume home meds after reconciliation Ins and outs #Hypertension Patient currently hypotensive Plan: Withhold antihypertensive medication in setting of low BP #DM2 Patient with history of diabetes and on Januvia home med Plan: SSI plus Accu-Cheks Maintain inpatient glucose between 140-180 Hospital Management: Lines: PIV Bowel: Senna Diet: Renal GI ppx: Protonix DVT/PPx: Heparin Dispo: IV antibiotics for UTI/cystitis pending blood and urine cultures, nephrology recommendations pending Code: Full Patient seen and assessed with attending Dr. Giang and senior resident Dr. Donna Goodson, PGY-1 Attending Provider Attestation/Addendum I attest that I was physically present for the evaluation, physical examination, lab and imaging review of the patient with the residents. I discussed the case with the residents and agree with the findings and plans of care as documented above. Mansi Giang MD
--- NOTE | 2024-05-31 12:59 | XR_ITS ---
Examination: Retroperitoneal ultrasound, complete Technique: Multiple high resolution grayscale images of the retroperitoneum obtained, including kidneys and bladder. Exam date and time:May 31, 2024 1417 hours INDICATIONS: Flank pain urinary tract infections with fever today FINDINGS: Right kidney 9.4 x 4.8 x 4.8 cm cortex 1.5 cm Left kidney 7.7 x 4.1 x 4.1 cm cortex 1.3 cm Moderate bilateral renal parenchymal scar formation No hydronephrosis No bladder mass or bladder calculi Bladder prevoid volume 93 cc, unable to void IMPRESSION: Small kidneys with bilateral renal cortical thinning Moderate bilateral renal parenchyma scar formation No hydronephrosis
--- NOTE | 2024-05-31 14:45 | PC.PT ---
PT eval only. Patient is at her PLOF.
[2024-05-31] MEDS: PRAVASTATIN SODIUM 10 MG TABLET 40 MG PO (20:32)
[2024-06-01] VITALS: BP 148/92; PULSE 85; RESP 19; TEMP 36.2; O2SAT 93
[2024-06-01 04:00] VITALS: BP 160/89; PULSE 88; RESP 15; TEMP 36.7; O2SAT 93
[2024-06-01] MEDS: SODIUM CHLORIDE 0.9% 1000 ML 1,000 ML 75 ML IV (05:11)
[2024-06-01] MEDS: HEPARIN SOD INJ 5000 UNIT/ML VIAL SC (05:11)
[2024-06-01 05:21] LABS: Basophils # (Auto) 0.1 Thou/mm3 (0.0-0.2); Basophils % (Auto) 1 % (0-2.5); Eosinophils # (Auto) 0.4 Thou/mm3 (0.0-0.5); Eosinophils % (Auto) 4 % (0-10); Hematocrit 29.9 % (36.0-46.0); Hemoglobin 10.2 g/dL (12.0-16.0); Immature Granulocytes % (Auto) 1 % (0-0); Immature Granulocytes Auto 0.05 Thou/mm3 (0.00-0.00); Lymphocytes % (Auto) 10 % (10-50); Mean Corpuscular HGB Conc 34.1 g/dl (31.0-37.0); Mean Corpuscular Hemoglobin 30.2 pg (25.0-35.0); Mean Corpuscular Volume 89 fL (80-100); Monocytes # (Auto) 0.8 Thou/mm3 (0.0-0.8); Monocytes % (Auto) 7 % (0-12); Neutrophils % (Auto) 78 % (37-80); Nucleated Red Blood Cell % 0 /100 WBC (0); Platelet Count 271 Thou/mm3 (140-440); RDW Standard Deviation 50.4 fL (36.4-46.3); Red Blood Count 3.38 Miln/mm3 (4.00-5.20); White Blood Count 10.3 Thou/mm3 (3.6-11.0)
[2024-06-01 06:00] VITALS: BMI 26.2
[2024-06-01 06:05] LABS: Alanine Aminotransferase 19 U/L (10-49); Albumin, Serum 3.1 gm/dL (3.4-4.8); Albumin/Globulin Ratio 1.2 (1.2-2.2); Alkaline Phosphatase 62 U/L (46-116); Anion Gap 11 (7-16); Aspartate Amino Transferase 37 U/L (0-34); BUN/Creatinine Ratio 17 Ratio (12-20); Bilirubin,Total < 0.2 mg/dL (0.3-1.2); Blood Urea Nitrogen 24 mg/dL (9-23); Calcium 8.3 mg/dL (8.3-10.6); Carbon Dioxide 19.6 mMol/L (20.0-31.0); Chloride 111 mMol/L (98-107); Creatinine (Component) 1.4 mg/dL (0.6-1.3); Estimated Creatinine Clearance 24.4 mL/min (>60); Globulin 2.5 gm/dL (2.3-3.5); Glucose 102 mg/dL (74-106); Magnesium 2.2 mg/dL (1.6-2.6); Osmolality,Calculated 287 (275-295); Phosphorous 2.3 mg/dL (2.4-5.1); Potassium 4.1 mMol/L (3.4-5.1); Sodium 142 mMol/L (136-145); Total Protein 5.6 gm/dL (5.7-8.2); eGFR 38 See Note
--- NOTE | 2024-06-01 07:20 | PD.NEPHPROG ---
Documentation for date of: 06/01/24 Subjective Subjective Interval history: Informant daughter Ms. Chandra is a 83-year-old female patient with significant medical history for hypertension, diabetes type 2, dementia, CKD III under my care,CHF/ CAD with PTCA/stents under the care of Dr. Urbina has been having urinary tract symptoms for the last 2 weeks. Patient went to [facility] clinic and initially received Macrobid 100 mg p.o. twice daily for 5 days. The symptoms did not get better and daughter took her back to [facility] clinic where she was given Bactrim. Nausea, vomiting, fevers that the daughter brought her to the emergency department yesterday. She was given fluids, Rocephin and discharged. Brought her back today with a hypotension and not feeling well.Patient has also been having decreased p.o. intake over the last few days. In ED today, vitals were significant for BP 90/57, afebrile and saturating 100% on 6 L nasal cannula. WBC had increased from 15-23 .8since yesterday and hemoglobin have decreased from 10.2-9. Labs were significant for NA 135, K3.7, BUN 36, [employer] 2.1 (baseline 1.3), EGFR 23, glucose 174, Trope 0.456, BNP 1648 and procalcitonin 30.2. LFTs normal. Urine tox screen negative. Urinalysis indicated 242 WBC, leukocyte esterase positive and negative urine bacteria. Chest x-ray reading showed early bibasilar pneumonia. Patient was admitted for symptomatic UTI requiring IV antibiotics and IHSAN on CKD. Renal consultation requested for acute renal failure. Patient currently seen in the emergency department. Home medications included Basaglar, Plavix, dicyclomine, furosemide, glipizide, lisinopril, potassium, verapamil, pravastatin, Bactrim. 05/31/2024 patient currently seen in medical floor. Resting comfortably. Having lunch. Blood pressure 122/83, heart rate 73. Blood sugar 84. White count improved to 18.2, hemoglobin 9.2, platelets 242. Sodium 142, potassium 3.6, BUN 34, creatinine 1.9, lactic acid 1.5, phosphorus 3.3, magnesium 2, LFTs normal, troponin 0.4 CT abdomen yesterday showed no hydronephrosis. Did show atrophic left kidney. Renal ultrasound ordered. Blood cultures, urine cultures pending. 06/01/2024 patient currently seen in the medical floor. Patient resting comfortably. Denies any chest pain, shortness of breath. No urinary symptoms of burning or frequency. Having breakfast. Vital signs have been stable. WBC 10.3, hemoglobin 10.2, platelets 271. Sodium 142, potassium 4.1, bicarbonate 19.6, BUN 24, creatinine 1 point phosphorus 2.3, magnesium 2.2, AST 37, alk phos 62, albumin 3.1. Renal ultrasound showed no hydronephrosis-bilateral small kidneys consistent with CKD. Review of Systems Review of Systems Narrative Review of Systems: CONSTITUTIONAL: Patient denies any fever or chills HEENT: Patient has hearing problems CARDIOVASCULAR: Patient denies any chest pain, shortness of breath, swelling in the lower extremities. PULMONARY: Patient denies any shortness of breath, cough. GASTROINTESTINAL: Denies any abdominal pain. Complaining of decreased p.o. intake, nausea GENITOURINARY: Did have urinary symptoms of burning and frequency. Today she seems to be better SKIN: Denies any rash. MUSCULOSKELETAL: Complaining of gait imbalance, arthritis NEUROLOGICAL: Denies any neurological problems of strokes, seizures or confusion. Denies any memory problems. Exam Vital Signs Temp Pulse Resp BP Pulse Ox O2 Del Method O2 Flow Rate 36.7 C 88 15 160/89 H 93 L Room Air 3 06/01/24 04:00 06/01/24 04:00 06/01/24 04:00 06/01/24 04:00 06/01/24 04:00 06/01/24 04:00 05/31/24 07:14 Narrative Exam GENERAL APPEARANCE: Elderly lady currently seen in medical floor Dry mucosa NECK: Neck supple, no JVD or bruit CARDIOVASCULAR: Heart regular, no murmurs LUNGS/CHEST: Chest clear to auscultation. No rales, rhonchi, wheezing ABDOMEN: Soft, nontender, nondistended. No masses. Normal bowel sounds. EXTREMITIES: No edema, clubbing or cyanosis. SKIN: Skin exam normal without any rashes MUSCULOSKELETAL: Musculoskeletal exam normal PSYCHIATRIC: Normal mood, affect LYMPHATICS: No lymphadenopathy noted NEUROLOGICAL : No neurological deficits Objective Labs 06/01/24 05:09 06/01/24 05:09 Labs: Laboratory Results - last 24 hr 06/01/24 05:09 WBC 10.3 D RBC 3.38 L Hgb 10.2 L Hct 29.9 L MCV 89 MCH 30.2 MCHC 34.1 RDW Std Deviation 50.4 H Plt Count 271 Neut % (Auto) 78 Lymph % (Auto) 10 [place] % (Auto) 7 Eos % (Auto) 4 Baso % (Auto) 1 Neut # (Auto) 8.0 H Lymph # (Auto) 1.0 [place] # (Auto) 0.8 Eos # (Auto) 0.4 Baso # (Auto) 0.1 Immature Gran # (Auto) 0.05 H Absolute Nucleated RBC 0.00 Immature Gran % 1 H Nucleated RBC % 0 Sodium 142 Potassium 4.1 D Chloride 111 H Carbon Dioxide 19.6 L Anion Gap 11 BUN 24 H Creatinine 1.4 H D Estim Creat Clear Calc 24.4 L eGFR 38 L BUN/Creatinine Ratio 17 Glucose 102 Calculated Osmolality 287 Calcium 8.3 Corrected Calcium 9.0 Phosphorus 2.3 L Magnesium 2.2 Total Bilirubin < 0.2 L AST 37 H ALT 19 Alkaline Phosphatase 62 Total Protein 5.6 L Albumin 3.1 L Globulin 2.5 Albumin/Globulin Ratio 1.2 Assessment & Plan Assessment and plan (1) IHSAN (acute kidney injury): Status: Acute (2) UTI (urinary tract infection): Status: Acute (3) Pneumonia: Status: Acute (4) Elevated troponin: Status: Acute (5) Hypotension: Status: Acute (6) Diabetes mellitus: Status: Acute (7) Sepsis: Status: Acute Additional Assessment & Plan Additional Plan: (1) IHSAN (acute kidney injury): Status: Acute Assessment and plan: Acute on chronic renal insufficiency secondary to prerenal azotemia. Agree with IV fluids. Urine electrolytes, renal ultrasound ordered. Strict I&O's ordered. Creatinine better at 1.4 CT showed atrophic right kidney. (2) UTI (urinary tract infection): Status: Acute Assessment and plan: On broad-spectrum antibiotics. Urine culture positive for E. coli. Blood cultures negative. (3) Pneumonia: Status: Acute (4) Elevated troponin: Status: Acute Assessment and plan: Patient denies any chest pain. Most likely stress response. (5) Hypotension: Status: Acute Assessment and plan: Hold blood pressure medications. IV fluids were given (6) Diabetes mellitus: Status: Acute Assessment and plan: Accu-Cheks, sliding scale. (7) Sepsis: Status: Acute Improving. Renal leggett stable for discharge. Quality - progress note Quality Measures Quality Measures: VTE prophylaxis Reason for Continued Stay Reason for Continued Stay: further monitoring
[2024-06-01 08:00] VITALS: BP 138/77; PULSE 77; PULSE 87; RESP 18; TEMP 36; O2SAT 92
[2024-06-01] MEDS: CEFEPIME INJ 1 GM in SODIUM CHLORIDE 0.9% (P) 50 ML IV (08:12)
[2024-06-01] MEDS: PANTOPRAZOLE 40 MG TABLET PO (08:13)
[2024-06-01] MEDS: MEMANTINE HCL 5 MG TABLET PO (08:13)
[2024-06-01] MEDS: VIT B12/Vit C/FA (Nephrovite) TABLET 1 TAB PO (08:13)
[2024-06-01] MEDS: SENNA TABLET 1 TAB PO (08:13)
[2024-06-01 09:15] VITALS: PULSE 80; RESP 16; RESP 92
[2024-06-01] MEDS: CITRIC ACID/SODIUM CITR 15 ML UDC (BICITRA) 30 ML PO (09:33)
--- NOTE | 2024-06-01 10:22 | PC.SS ---
Initial assessment: Patient is a 83-year-old female admitted for fever chills. The patient is alert and oriented to self, place and situation. The patient confirmed home demographic information. Patient informs she lives with her daughter Billie and Billie's spouse. Patient assigned daughterBillie as her emergency contact. The patient informs she is primary independent with ADL's. Patient informs she has a walker at home if needed. Patient's PCP is Dr. Kaleb Sky. The discharge plan was discussed and patiet wants to return home, family able to transport home. D/c plan: Home Next of Kin: daughterBillie
[2024-06-01] MEDS: FOSFOMYCIN PWD 3 GM PACKET (NON-FORMULARY) PO (10:58)
--- NOTE | 2024-06-01 10:59 | CHAP ---
Patient was visited by a spiritual care volunteer 0n 06/01/2024 between 2251 and 101 and received encouragement, comfort and/or prayer.
[2024-06-01 12:00] VITALS: BP 152/84; PULSE 76; PULSE 82; RESP 18; TEMP 36.6; O2SAT 94
[2024-06-01] MEDS: INSULIN LISPRO (AdmeLOG) 1 UNIT/0.01 ML UNIT SC (12:00)
--- NOTE | 2024-06-01 15:57 | ESDS_ITS ---
<Statement entered by Becky Killian DO - 06/02/24 08:12> I, Becky Killian DO, attest that I was physically present for the bower portions of the service and evaluated the patient with the resident and I reviewed and discussed the case with the resident and agree with the resident's findings and plans of care as documented above Planned Discharge Date 06/01/24 DS: Providers Provider Date of admission: 05/31/24 14:24 Primary care physician: Kaleb Sky MD Admitting Provider: Mansi Giang MD Attending Provider on Admission: Mansi Giang MD Consults: 05/31/24 10:22 Referral Lucy Routine Comment: Referral Physical Therapy Routine Comment: Physician Instructions: Referral Respiratory Therapy Routine Comment: Attending Provider on DC: Peterson Thompson MD Discharging Provider: Peterson Thompson MD DS: Diagnosis Problem List Completed Was Problem List Reviewed/Reconciled?: Yes Hospital Course Hospital Course Hospital course: Miss Chandra an 83-year-old female patient with significant medical history for hypertension, diabetes type 2, dementia, CKD, CAD SP stents and CHF was brought to ED for hypotension. Patient was accompanied by daughter who provides further information. Per daughter patient was having intermittent fevers, chills and vomiting. Patient had failed outpatient p.o. antibiotics by PCP and ED (Macrobid and Nitrofurantoin) and thus revisited the hospital. Urinalysis indicated 242 WBC and leukocyte esterase positive. Patient was admitted for symptomatic UTI and IHSAN on CKD. Chief Nurse Dr. Sky followed up patient while in hospital. Ultrasound of kidneys indicated bilateral renal cortical thinning, moderate renal parenchyma scar formation and no hydronephrosis. Patient was treated with Cefepime, urine culture results indicated ESBL E. Coli. Patient received Fosfomycin and was stable to be discharged home. #Symptomatic UTI #Cystitis #IHSNA on CKD #Dementia #Hx of CAD s/p stents #Hx of CHF #Hypertension #DM2 Discharge summary was reviewed with my attending Dr. Constantin Thompson, PGY-2 Status at Discharge Overall status at discharge: patient is progressing back to baseline Time Spent with Patient Time attestation: Total time spent providing and/or coordinating discharge services: Time spent: Greater than 30 minutes Exam Vital Signs Temp Pulse Resp BP Pulse Ox O2 Del Method O2 Flow Rate 97.9 F 82 18 152/84 H 94 L Room Air 3 06/01/24 12:00 06/01/24 12:00 06/01/24 12:00 06/01/24 12:00 06/01/24 12:00 06/01/24 12:00 05/31/24 07:14 Narrative Exam Constitutional: Frail looking elderly woman, in no acute distress, lying in bed HEENT: NCAT, EOMI, reactive round pupils b/l, patent nares b/l, moist mucous membranes Lung: CTAB, no wheezing, no rhonchi Heart: Regular S1S2, no murmurs, gallops, or rubs Abdomen: Soft, non-distended, non-tender, bowel sounds present throughout Extremities: No cyanosis, clubbing, or edema, LE pulses present b/l Neurologic: No focal sensory or motor deficits noted, AOx2, appropriate affect Skin: Warm, dry, no lesions or rashes noted Discharge Plan Plan Patient Disposition: HOME (Self Care) Patient condition on transfer: Stable Care Plan Goals: Please follow-up with your primary care doctor within 1 week of discharge If you continue to have fevers, chills, nausea or vomiting please visit your closest hospital Prescriptions/Referrals Prescriptions/Med Rec: Continued verapamil 240 mg Tablet Extended Release 240 mg PO QDAY lisinopril 20 mg tablet 20 mg PO QDAY albuterol sulfate 90 mcg/actuation HFA aerosol inhaler 2 puff INHALATION Q6H Basaglar KwikPen U-100 Insulin 100 unit/mL (3 mL) Insulin Pen 10 unit SUBCUT QPM furosemide 40 mg Tablet 40 mg PO QAM potassium chloride 10 mEq Capsule, Extended Release 10 meq PO BID pravastatin 40 mg Tablet 40 mg PO QDAY clopidogrel 75 mg Tablet 75 mg PO QDAY nitroglycerin 0.4 mg Tablet, Sublingual 0.4 mg BUCCAL [id number] PRN (Reason: Chest Pain) glipizide 5 mg Tablet 5 mg PO QDAY dicyclomine 20 mg tablet 20 mg PO QID PRN (Reason: abdominal pain) Qty: 14 0RF Discontinued nitrofurantoin monohyd/m-cryst [Macrobid] 100 mg capsule 100 mg PO Q12H 7 Days Qty: 14 0RF Rx Instructions: must administer with a meal/food Referrals: Kaleb Sky MD [Primary Care Provider] - Patient/Caregiver Discharge Instructions Other Discharge Activity Instructions:: Please follow-up with your primary care doctor within 1 week of discharge If you continue to have fevers, chills, nausea or vomiting please visit your closest hospital Education Materials: Low-Salt Choices, Urinary Tract Infections in Women, Understanding Urinary Tract ..., Hypertension and Kidney Disease Print Language: Pashto Stand Alone Forms: Greta Award Info., Patient Portal Info Letter Discharge Order Discharge Orders: Discharge (Routine); Ordered 06/01/24 Ordered By: Peterson Thompson Quality Discharge Quality Measures VTE prophylaxis
== END 2024-06-01 14:32 | disposition home or self-care (01) | DRG 682 ==
LOC: SERX 17:40 → SERHOLD 05-31 08:34 → S3NX 05-31 10:36
PROVIDERS: Internal Medicine; Registered Nurse General Practice; Admitting Provider Student in an Organized Health Care Education/Training Program; Emergency Provider Emergency Medicine; PCP Internal Medicine; Visit Provider Student in an Organized Health Care Education/Training Program
DX: N17.9 Acute kidney failure, unspecified (principal); J18.9 Pneumonia, unspecified organism; I13.0 Hypertensive heart and chronic kidney disease with heart failure and stage 1 through stage 4 chronic kidney disease, or unspecified chronic kidney disease; K92.2 Gastrointestinal hemorrhage, unspecified; N30.90 Cystitis, unspecified without hematuria; N18.30 Chronic kidney disease, stage 3 unspecified; E11.22 Type 2 diabetes mellitus with diabetic chronic kidney disease; F03.90 Unspecified dementia, unspecified severity, without behavioral disturbance, psychotic disturbance, mood disturbance, and anxiety; I25.10 Atherosclerotic heart disease of native coronary artery without angina pectoris; I50.9 Heart failure, unspecified; I95.9 Hypotension, unspecified; Z95.5 Presence of coronary angioplasty implant and graft; B96.20 Unspecified Escherichia coli [E. coli] as the cause of diseases classified elsewhere; Z88.8 Allergy status to other drugs, medicaments and biological substances; Z88.0 Allergy status to penicillin; Z91.040 Latex allergy status; N26.1 Atrophy of kidney (terminal); Z79.4 Long term (current) use of insulin; Z79.02 Long term (current) use of antithrombotics/antiplatelets; Z79.84 Long term (current) use of oral hypoglycemic drugs
CPT/HCPCS: 36415; 71045; 76770; 80053; 80307; 81001; 83605; 83615; 83735; 83880; 84100; 84145; 84484; 85025; 85610; 85730; 87040; 87086; 87400; 87811; 93225; 97162; G0378; J0692; J0696; J1643; J1815; J7030; J7050; A9270

== ENCOUNTER 2024-06-07 19:25 | Inpatient (IN) | payer MEDICARE, MEDICAID, SELFPAY ==
[2024-06-07 19:26] VITALS: BMI 25.9
[2024-06-07 19:32] VITALS: BP 152/79; PULSE 82; RESP 19; TEMP 37.7; O2SAT 95
--- NOTE | 2024-06-07 19:40 | XR_ITS ---
Examination: AP lateral chest 2 views Technique: Upright AP lateral chest 2 views Exam date and time: June 07, 20241999 hrs. Comparison May 30, 2024 Indications: Shortness of breath weakness today. Findings: Mild prominence left ventricle Moderate vascular congestion including central vascular engorgement No lobar pneumonia Prominent osteopenia Impression: Moderate vascular congestion including central vascular engorgement
--- NOTE | 2024-06-07 19:41 | PD.EDRME ---
Rapid Medical Screening Exam RME Arrival date/time: 06/07/24 19:25 83-year-old female with past medical history of hypertension, diabetes type 2, dementia, CKD, CAD SP stents and CHF presents emergency department with family ember at bedside complaining of shortness of breath and generalized weakness. Chief Complaint: Shortness of Breath/Dyspnea Time Seen by Provider: 06/07/24 19:31 Vital signs: Vital Signs Temperature 99.8 F 06/07/24 19:32 Pulse Rate 82 06/07/24 19:32 Respiratory Rate 19 06/07/24 19:32 Blood Pressure 152/79 H 06/07/24 19:32 Pulse Oximetry (%) 95 06/07/24 19:32 Oxygen Delivery Method Room Air 06/07/24 19:32 Vital signs reviewed by provider: Yes
[2024-06-07 20:00] LABS: Basophils # (Auto) 0.1 Thou/mm3 (0.0-0.2); Basophils % (Auto) 0 % (0-2.5); Eosinophils # (Auto) 0.2 Thou/mm3 (0.0-0.5); Eosinophils % (Auto) 1 % (0-10); Hematocrit 31.3 % (36.0-46.0); Hemoglobin 10.2 g/dL (12.0-16.0); Immature Granulocytes % (Auto) 1 % (0-0); Immature Granulocytes Auto 0.22 Thou/mm3 (0.00-0.00); Lymphocytes # (Auto) 1.1 Thou/mm3 (1.0-4.8); Lymphocytes % (Auto) 4 % (10-50); Mean Corpuscular HGB Conc 32.6 g/dl (31.0-37.0); Mean Corpuscular Hemoglobin 29.5 pg (25.0-35.0); Mean Corpuscular Volume 91 fL (80-100); Monocytes # (Auto) 0.9 Thou/mm3 (0.0-0.8); Monocytes % (Auto) 3 % (0-12); Neutrophils # (Auto) 23.4 Thou/mm3 (1.8-7.7); Neutrophils % (Auto) 91 % (37-80); Nucleated Red Blood Cell % 0 /100 WBC (0); Platelet Count 422 Thou/mm3 (140-440); RDW Standard Deviation 51.9 fL (36.4-46.3); Red Blood Count 3.46 Miln/mm3 (4.00-5.20)
[2024-06-07 20:05] LABS: White Blood Count 25.8 Thou/mm3 (3.6-11.0)
[2024-06-07 20:15] LABS: Prothrombin Time 11.3 Seconds (9.0-12.2)
[2024-06-07 20:22] LABS: Alanine Aminotransferase 15 U/L (10-49); Albumin, Serum 3.4 gm/dL (3.4-4.8); Albumin/Globulin Ratio 1.3 (1.2-2.2); Anion Gap 8 (7-16); Aspartate Amino Transferase 15 U/L (0-34); BUN/Creatinine Ratio 14 Ratio (12-20); Bilirubin,Total 0.5 mg/dL (0.3-1.2); Blood Urea Nitrogen 17 mg/dL (9-23); Calcium 9.5 mg/dL (8.3-10.6); Carbon Dioxide 23.3 mMol/L (20.0-31.0); Chloride 106 mMol/L (98-107); Creatinine (Component) 1.2 mg/dL (0.6-1.3); Estimated Creatinine Clearance 25.6 mL/min (>60); Globulin 2.7 gm/dL (2.3-3.5); Glucose 177 mg/dL (74-106); Magnesium 1.8 mg/dL (1.6-2.6); Osmolality,Calculated 279 (275-295); Potassium 4.1 mMol/L (3.4-5.1); Sodium 137 mMol/L (136-145); Total Protein 6.1 gm/dL (5.7-8.2); Troponin I 0.032 ng/mL (0.0-0.045); eGFR 45 See Note
[2024-06-07 20:39] LABS: Alkaline Phosphatase 65 U/L (46-116)
[2024-06-07 21:33] LABS: B-Type Natriuretic Peptide 1061 pg/mL (0-100)
[2024-06-07 22:42] VITALS: BP 153/78; PULSE 77; RESP 22; TEMP 38.8; O2SAT 91
--- NOTE | 2024-06-07 22:43 | PD.EDADULT ---
ED General RME/HPI General Chief complaint: Shortness of Breath/Dyspnea Stated complaint: SOB, fever, swelling of bilateral lower legs Time Seen by Provider: 06/07/24 19:31 Arrival date/time: 06/07/24 19:25 CC: Shortness of breath HPI ongoing for the past week and progressive increase in severity. Please note the patient was admitted on May 30 for IHSAN shortness of breath and was discharged on the . Patient states I am fine , however the family member at bedside states the patient says this anytime. After discharge patient was fine the first night and and following that for the past 4 days she has had progressive worsening of shortness of breath. This included decreased appetite. Family member states there is exertional dyspnea when ambulating and has been persistently short of breath. Patient does not wear oxygen at home. Upon initial assessment oxygen saturations while supine and resting were 86% on room air with good waveform. Patient is mildly tachypneic but not tachycardic. RME / HPI RME / HPI narrative: 06/07/24 19:25 83-year-old female with past medical history of hypertension, diabetes type 2, dementia, CKD, CAD SP stents and CHF presents emergency department with family ember at bedside complaining of shortness of breath and generalized weakness. Related Data Home Medications ?Medication ?Instructions ?Recorded ?Confirmed insulin glargine 100 unit/mL (3 10 unit subcut QPM 02/15/21 06/09/24 mL) subcutaneous pen (Basaglar KwikPen U-100 Insulin) clopidogrel 75 mg tablet 75 mg PO QDAY 08/01/21 06/08/24 furosemide 40 mg tablet 40 mg PO QAM 08/01/21 06/08/24 Held on 06/12/24. Instructions: Resume on 06/26/24. f/u with PCP nitroglycerin 0.4 mg sublingual 0.4 mg buccal [id number] PRN Chest 08/01/21 06/08/24 tablet Pain potassium chloride 10 mEq 10 meq PO BID 08/01/21 08/01/21 capsule,extended release pravastatin 40 mg tablet 40 mg PO QDAY 08/01/21 06/08/24 calcitriol 0.25 mcg capsule 0.25 mcg PO .3 TIMES A WK 06/08/24 06/08/24 docusate sodium 100 mg capsule 100 mg PO QDAY 06/08/24 06/08/24 (Colace) memantine 10 mg tablet 5 mg PO BID 06/08/24 06/08/24 quetiapine 25 mg tablet 25 mg PO HS 06/08/24 06/08/24 sitagliptin phosphate 50 mg tablet 50 mg PO QDAY 06/08/24 06/08/24 (Januvia) donepezil 5 mg tablet 5 mg PO .noct 06/09/24 06/09/24 Previous Rx's ?Medication ?Instructions ?Recorded apixaban 5 mg (74 tabs) tablets in 5 mg PO BID #74 tabs 06/11/24 a dose pack (BombBomb DVT-PE Treat 30D Start) levalbuterol tartrate 45 2 inh inhalation Q6H PRN shortness 06/12/24 mcg/actuation aerosol inhaler of breath or wheezing #15 grams Allergies Allergy/AdvReac Type Severity Reaction Status Date / Time erythromycin base Allergy Severe DIFF Verified 05/30/24 11:35 BREATHING latex Allergy Severe RASH AND Verified 05/30/24 11:35 ITCHING Penicillins Allergy Severe ITCHING Verified 05/30/24 11:35 tetracycline Allergy Severe RASH Verified 05/30/24 11:35 Review of Systems Review of Systems Narrative Review of Systems: GEN: No fever, no chills, no weight loss EYES: No discharge, no visual changes, no pain HEENT: No ear pain, no congestion, no sore throat PULM: + shortness of breath, no cough, no congestion CV: No chest pain, no dyspnea on exertion, no palpitations GI: No nausea, no vomiting, no diarrhea, no pain, no constipation : No frequency, no urgency, no dysuria MUSC/SKEL: No joint pain, no back pain SKIN: No rash PSYCH: No hallucinations, no depression HEME/LYMPH: No easy bleeding or bruising tendencies NEURO: No weakness, no headache Past Medical History Past Medical History NEUROLOGIC: Positive Dementia; Negative Seizures CARDIAC: Positive Myocardial Infarction, Hypercholesterolemia, Cellulitis and Hypertension; Negative Cardiac Disorders or Congestive Heart Failure RESPIRATORY: Negative Chronic Obstructive Pulmonary Disease (COPD) or Asthma GASTROINTESTINAL: Positive Diverticulitis; Negative Gastrointestinal Bleed, Hemorrhoids or Gastroesophageal Reflux Disease GENITOURINARY: Positive Genitourinary Disorders; Negative Renal Disease REPRODUCTIVE: Positive Previous Pregnancies MUSCULOSKELETAL: Positive Arthritis, Osteoporosis and Fractures ENDOCRINE: Negative Diabetes Mellitus Type 1 or Diabetes Mellitus Type 2 HEMATOLOGIC: Negative Sickle Cell Disease PSYCHO/SOCIAL: Negative Depression or Anxiety OTHER HISTORY: Positive Chicken Pox; Negative Autoimmune Disease, Falls, Blood Transfusions, Blood Transfusion Reaction or Cancer Family History FAMILY HISTORY: Negative Family Psychiatric Problems, Family Respiratory Disorders, Family Cardiac Disorders, Family Gastrointestinal Problems, Family Cancer, Family Surgery or Family Anesthesia Reaction Surgical History SURGICAL: Positive Coronary Stent Social History SMOKING STATUS: Never smoker SUBSTANCE USE: does not use ED Exam Narrative Physical exam: [General: Appears not in any acute distress Head normocephalic HEENT: Within acceptable limits Neck is supple nontender Chest equal chest rise nontender to palpation Respiratory: Tachypneic clear to auscultation no wheezes crackles or rubs CV: Rate rhythm is regular no murmurs rubs or clicks Abdomen is distended secondary to body habitus soft nontender no masses positive bowel sounds all 4 quadrants Back: No CVA tenderness no spinous process tenderness from cervical spine thoracic and lumbar spine Skin: Intact no petechiae rash induration ulceration or crepitus Extremities: Moving all extremity against resistance cap refill less than 2 seconds neurosensory intact Neuro: Awake alert oriented x2, person and place, Glascow coma 15 no focal deficits] Course Quality Measures none Orders Category Date Time Status Bedside COVID-19 Antigen Test NOW Care 06/07/24 19:41 Active Bedside COVID-19 Antigen Test NOW Care 06/07/24 22:43 Completed Bedside Influenza A&B Antigen Test NOW Care 06/07/24 19:41 Completed Bedside Influenza A&B Antigen Test NOW Care 06/07/24 22:43 Completed COVID-19 Screening Questionnaire NOW Care 06/08/24 03:[address] Screening NOW Care 06/08/24 00:[address] Q4H START 00 Care 06/07/24 22:41 Active Continuous Pulse Oximetry STAT Care 06/07/24 22:41 Completed Decision to Admit X1 Care 06/08/24 03:09 Completed EKG (ED ONLY) *Do not use* NOW Care 06/07/24 19:40 Completed In and Out Catheter X1PRN Care 06/07/24 22:41 Completed Insert IV NOW Care 06/07/24 22:41 Active NPO STAT Care 06/07/24 22:41 Completed Strict Intake and Output Routine Care 06/07/24 22:[address] chest abdomen pelvis w Stat Exams 06/08/24 00:10 Completed EKG (ED Only) Stat Exams 06/07/24 19:40 Ordered XR chest 2V Stat Exams 06/07/24 19:40 Completed B-Type Natriuretic Peptide Stat Lab 06/07/24 19:52 Completed B-Type Natriuretic Peptide Stat Lab 06/07/24 22:54 Completed Blood Culture (Lab) Stat Lab 06/07/24 22:54 Results CBC Stat Lab 06/07/24 19:52 Completed CBC Stat Lab 06/07/24 22:54 Completed Comprehensive Metabolic Panel Stat Lab 06/07/24 19:52 Completed LDH (Lactate Dehydrogenase) Stat Lab 06/07/24 22:54 Completed Lactate (Lactic Acid) Stat Lab 06/07/24 22:54 Completed Lipase Stat Lab 06/07/24 22:54 Completed Magnesium Stat Lab 06/07/24 19:52 Completed Magnesium Stat Lab 06/07/24 22:54 Completed Partial Thromboplastin Time Stat Lab 06/07/24 19:52 Completed Phosphorous Stat Lab 06/07/24 22:54 Completed Procalcitonin Stat Lab 06/07/24 22:54 Completed Prothrombin Time with INR Stat Lab 06/07/24 19:52 Completed Troponin I Stat Lab 06/07/24 19:52 Completed Urinalysis Stat Lab 06/07/24 23:01 Ordered Urinalysis, C/S if Indicated Stat Lab 06/07/24 23:01 Completed Urine Culture Stat Lab 06/07/24 23:01 Completed Acetaminophen Tab [Tylenol Tab] Med 06/07/24 22:46 Discontinued 650 mg PO X1 ONE Oxygen Delivery NOW RT 06/07/24 22:41 Active Vital Signs Vital signs: Vital Signs Temperature 99.8 F 06/07/24 19:32 Pulse Rate 82 06/07/24 19:32 Respiratory Rate 19 06/07/24 19:32 Blood Pressure 152/79 H 06/07/24 19:32 Pulse Oximetry (%) 95 06/07/24 19:32 Oxygen Delivery Method Room Air 06/07/24 19:[address] [facility] Patient data External records reviewed:: [facility] previous records Clinical information provided by:: patient and family Social determinants that could affect healthcare access:: none Patient has the following chronic illnesses:: Hypertension CHF How is presenting disease/condition affected by chronic disease/condition?: uneffected by Evaluation data The following diagnostics were reviewed and interpreted by me:: lab results, radiology exam(s) and EKG tracing(s) Lab and/or radiology exams considered but not ordered:: CBC shows a leukocytosis of 25.8, H&H of 10.2 and 31.3 respectively with platelets at 422. Coags within acceptable limits CMP shows no significant electrolyte imbalances other than a glucose of 177. BUN and creatinine within acceptable limits. No transaminitis Troponin at 0.032 BMP at 1061 Chest x-ray as interpreted by me read by radiology shows a mild vascular congestion. Interpretation Summary: IHSAN Medications Medications considered but not ordered:: Normal Medication administrations:: Medication Administration History Acetaminophen (Acetaminophen 325 Mg Tablet) 650 mg PO Q6H PRN PRN Reason: PAIN SCALE 1-3 (mild Stop: 07/08/24 05:13 Last Admin: 06/09/24 09:52 Dose: 650 mg Documented By: ELLIOT Acetaminophen (Acetaminophen 325 Mg Tablet) 650 mg PO Q6H PRN PRN Reason: Fever >100.4 Stop: 07/08/24 05:13 Albuterol/Ipratropium (Albuterol/Ipratropium (Duoneb) Rt Fabi 3 Ml Nebu) 3 ml INH Q6HRRT SHYLA Stop: 07/08/24 06:59 Last Admin: 06/12/24 06:32 Dose: Not Given Documented By: YOHANNES Non-Admin Reason: Patient Refused Admin: 06/12/24 00:05 Dose: 3 ml Documented By: Admin: 06/11/24 19:22 Dose: 3 ml Documented By: Admin: 06/11/24 13:25 Dose: 3 ml Documented By: Admin: 06/11/24 06:10 Dose: 3 ml Documented By: Admin: 06/11/24 01:05 Dose: 3 ml Documented By: Admin: 06/10/24 18:30 Dose: 3 ml Documented By: Admin: 06/10/24 12:51 Dose: 3 ml Documented By: Admin: 06/10/24 07:01 Dose: 3 ml Documented By: Admin: 06/10/24 01:30 Dose: 3 ml Documented By: Admin: 06/09/24 18:05 Dose: 3 ml Documented By: Admin: 06/09/24 12:52 Dose: 3 ml Documented By: Admin: 06/09/24 07:10 Dose: 3 ml Documented By: Admin: 06/09/24 01:33 Dose: 3 ml Documented By: Admin: 06/08/24 18:10 Dose: 3 ml Documented By: Admin: 06/08/24 14:11 Dose: 3 ml Documented By: Admin: 06/08/24 06:10 Dose: 3 ml Documented By: ADRIANA Apixaban (Apixaban 2.5 Mg Tablet) 10 mg PO BID [facility]; Protocol Stop: 06/18/24 21:01 Last Admin: 06/12/24 08:58 Dose: 10 mg Documented By: BR Clopidogrel Bisulfate (Clopidogrel Bisulfate 75 Mg Tablet) 75 mg PO QDAY [facility] Stop: 07/11/24 08:59 Last Admin: 06/12/24 08:58 Dose: 75 mg Documented By: Admin: 06/11/24 09:32 Dose: 75 mg Documented By: ELVIS Dextrose (Dextrose 50%-Water Inj 50 Ml Syringe) 25 ml IV Q15MIN PRN PRN Reason: BG 50-70 responsive npo pt Stop: 07/08/24 07:10 Dextrose (Dextrose 50%-Water Inj 50 Ml Syringe) 50 ml IV Q15MIN PRN PRN Reason: BG <50 OR BG <70 & pt unresponsive Stop: 07/08/24 07:10 Furosemide (Furosemide 40 Mg Tablet) 40 mg PO QDAY [facility] Stop: 07/12/24 08:59 Last Admin: 06/12/24 08:58 Dose: 40 mg Documented By: ELVIS Glucagon (Glucagon Inj 1 Mg Vial) 1 mg IM Q15MIN PRN PRN Reason: BG <70, and no IV access Insulin Human Lispro (Insulin Lispro (Admelog) 1 Unit/0.01 Ml Unit) 0 unit SC ACHS [facility]; Protocol Stop: 07/08/24 07:29 Last Admin: 06/12/24 07:32 Dose: 1 unit Documented By: ELVIS Co-signed By: PAULA Admin: 06/11/24 21:35 Dose: 1 unit Documented By: TAYLOR Co-signed By: MAYNOR Admin: 06/11/24 16:42 Dose: Not Given Documented By: ELVIS Non-Admin Reason: Per Protocol Admin: 06/11/24 11:35 Dose: 2 unit Documented By: ELVIS Co-signed By: NATHALIE Admin: 06/11/24 07:24 Dose: Not Given Documented By: ELVIS Non-Admin Reason: Per Protocol Admin: 06/10/24 20:12 Dose: 1 unit Documented By: ANDRY Co-signed By: ILIANA Admin: 06/10/24 16:53 Dose: 2 unit Documented By: MAILE Co-signed By: MATILDE Admin: 06/10/24 11:31 Dose: Not Given Documented By: KF Non-Admin Reason: Per Protocol Admin: 06/10/24 07:29 Dose: Not Given Documented By: KF Non-Admin Reason: Per Protocol Admin: 06/10/24 06:47 Dose: Not Given Documented By: KF Non-Admin Reason: previous shift Admin: 06/09/24 21:13 Dose: 2 unit Documented By: MISAEL Co-signed By: BRENDON Admin: 06/09/24 14:06 Dose: Not Given Documented By: GE Non-Admin Reason: poor appetite Admin: 06/09/24 14:02 Dose: Not Given Documented By: GE Non-Admin Reason: not given yesterday Admin: 06/09/24 14:01 Dose: Not Given Documented By: GE Non-Admin Reason: not done yesterday Admin: 06/09/24 13:58 Dose: Not Given Documented By: GE Non-Admin Reason: Poor Appetite Admin: 06/09/24 09:18 Dose: Not Given Documented By: GE Non-Admin Reason: hold per MD dior until PO iintake impr Admin: 06/08/24 22:23 Dose: Not Given Documented By: MISAEL Non-Admin Reason: Per Protocol Memantine (Memantine Hcl 5 Mg Tablet) 5 mg PO BID SHYLA Stop: 07/09/24 20:59 Last Admin: 06/12/24 08:58 Dose: 5 mg Documented By: Admin: 06/11/24 21:34 Dose: 5 mg Documented By: Admin: 06/11/24 09:32 Dose: 5 mg Documented By: Admin: 06/10/24 20:12 Dose: 5 mg Documented By: Admin: 06/10/24 08:14 Dose: 5 mg Documented By: Admin: 06/09/24 20:21 Dose: 5 mg Documented By: MISAEL Ondansetron HCl (Ondansetron Inj 2 Mg/Ml Inj 2 Ml) 4 mg IV Q6H PRN; Protocol PRN Reason: NAUSEA OR VOMITING Stop: 07/08/24 05:13 Last Admin: 06/10/24 08:38 Dose: 4 mg Documented By: Admin: 06/09/24 09:52 Dose: 4 mg Documented By: ELLIOT Oxycodone/Acetaminophen (Oxycodone/Apap 5/325 Tablet) 1 tab PO Q6H PRN PRN Reason: PAIN SCALE 4-6 (Moderate Stop: 06/13/24 05:13 Pantoprazole Sodium (Pantoprazole Inj 40 Mg Vial) 40 mg IVP QDAY [facility] Stop: 07/08/24 08:59 Last Admin: 06/12/24 08:57 Dose: 40 mg Documented By: Admin: 06/11/24 09:34 Dose: 40 mg Documented By: Admin: 06/10/24 08:14 Dose: 40 mg Documented By: Admin: 06/09/24 09:53 Dose: 40 mg Documented By: Admin: 06/08/24 10:00 Dose: 40 mg Documented By: Pravastatin Sodium (Pravastatin Sodium 10 Mg Tablet) 40 mg PO QDAY [facility] Stop: 07/10/24 08:59 Last Admin: 06/12/24 08:58 Dose: 40 mg Documented By: Admin: 06/11/24 09:31 Dose: 40 mg Documented By: Admin: 06/10/24 08:14 Dose: 40 mg Documented By: MAILE Discontinued Medications Acetaminophen (Acetaminophen 325 Mg Tablet) 650 mg PO X1 ONE Stop: 06/07/24 22:47 Last Admin: 06/07/24 22:56 Dose: 650 mg Documented By: SHUBHAM Enoxaparin Sodium (Enoxaparin Sod Inj 100 Mg/Ml Syringe) 54 mg 1 mg/kg (54 mg) SC BID SHYLA Stop: 06/22/24 08:59 Enoxaparin Sodium (Enoxaparin Sod Inj 60 Mg/0.6 Ml Syringe) 50 mg SC QDAY [facility] Stop: 06/22/24 08:59 Last Admin: 06/10/24 08:14 Dose: 50 mg Documented By: Admin: 06/09/24 09:53 Dose: 50 mg Documented By: Admin: 06/08/24 09:59 Dose: 50 mg Documented By: Furosemide (Furosemide Inj 10 Mg/Ml 4ml Vial) 40 mg IVP BIDD [facility] Stop: 07/08/24 05:59 Last Admin: 06/09/24 05:32 Dose: 40 mg Documented By: Admin: 06/08/24 17:19 Dose: 40 mg Documented By: Admin: 06/08/24 06:23 Dose: 40 mg Documented By: EE Furosemide (Furosemide Inj 10 Mg/Ml 4ml Vial) 40 mg IVP QDAY SHYLA Stop: 07/10/24 08:59 Last Admin: 06/11/24 09:33 Dose: 40 mg Documented By: Admin: 06/10/24 08:15 Dose: 40 mg Documented By: KF Heparin Sodium (Porcine) (Heparin Sod Inj 5000 Unit/Ml Vial) 4,350 unit 80 unit/kg (4350 unit) IV X1 ONE; Protocol Stop: 06/08/24 05:20 Last Admin: 06/08/24 07:09 Dose: Not Given Documented By: EE Non-Admin Reason: Discontinued Heparin Sodium (Porcine) (Heparin Sod Inj 5000 Unit/Ml Vial) 2,200 unit 40 unit/kg (2200 unit) IV X1 ONE; Protocol Stop: 06/08/24 05:20 Last Admin: 06/08/24 07:09 Dose: Not Given Documented By: EE Non-Admin Reason: Discontinued Heparin Sodium (Porcine) (Heparin Sod Inj 5000 Unit/Ml Vial) 4,600 unit 80 unit/kg (4600 unit) IV X1 ONE; Protocol Stop: 06/11/24 08:46 Last Admin: 06/11/24 09:35 Dose: 4,600 unit Documented By: ELVIS Co-signed By: PAULA Heparin Sodium (Porcine) (Heparin Sod Inj 5000 Unit/Ml Vial) 4,600 unit IVP X1 ONE Stop: 06/11/24 21:46 Last Admin: 06/11/24 21:47 Dose: 4,600 unit Documented By: TAYLOR Co-signed By: REMINGTON Heparin Sodium/Dextrose (Heparin In D5w Ivpb) 25,000 unit in 250 mls @ 9.798 mls/hr IV .Q24H SHYLA; Protocol Stop: 06/22/24 05:29 Last Admin: 06/08/24 07:09 Dose: Not Given Documented By: EE Non-Admin Reason: Discontinued Cefepime HCl 2 gm/ Sodium (Chloride) 50 mls @ 100 mls/hr IV DAILY SHYLA Stop: 06/15/24 07:14 Last Admin: 06/09/24 10:08 Dose: Not Given Documented By: ELLIOT Non-Admin Reason: Discontinued Admin: 06/08/24 07:52 Dose: Not Given Documented By: BARBARA Non-Admin Reason: Discontinued Cefepime HCl 2 gm/ Sodium (Chloride) 50 mls @ 100 mls/hr IV X1 ONE Stop: 06/08/24 06:14 Last Infusion: 06/08/24 06:45 Dose: Infused Documented By: Admin: 06/08/24 05:47 Dose: 100 mls/hr Documented By: MARIA A Vancomycin/Sodium Chloride (Vancomycin/Ns 1 Gm Ivpb) 200 mls @ 100 mls/hr IV X1 ONE Stop: 06/08/24 07:59 Last Infusion: 06/08/24 07:56 Dose: Infused Documented By: Admin: 06/08/24 05:56 Dose: 100 mls/hr Documented By: MARIA A Vancomycin/Sodium Chloride (Vancomycin/Ns 750 Mg Ivpb) 750 mg in 150 mls @ 120 mls/hr IV Q24H SHYLA; Protocol Stop: 06/16/24 09:59 Potassium Chloride (Kcl Ivpb) 10 meq in 100 mls @ 100 mls/hr IV Q1H SHYLA Stop: 06/09/24 13:28 Last Admin: 06/09/24 14:59 Dose: 75 mls/hr Documented By: Infusion: 06/09/24 14:50 Dose: Infused Documented By: Admin: 06/09/24 13:30 Dose: 75 mls/hr Documented By: Infusion: 06/09/24 12:55 Dose: Infused Documented By: Admin: 06/09/24 11:35 Dose: 75 mls/hr Documented By: Infusion: 06/09/24 11:35 Dose: Infused Documented By: Admin: 06/09/24 10:03 Dose: 100 mls/hr Documented By: GE Heparin Sodium/Dextrose (Heparin In D5w Ivpb) 25,000 unit in 250 mls @ 10.374 mls/hr IV .Q24H SHYLA; Protocol Stop: 06/12/24 08:55 Last Titration: 06/12/24 07:08 Dose: 22 units/kg/hr, 12.68 mls/hr Documented By: ELVIS Co-signed By: TAYLOR Titration: 06/11/24 21:49 Dose: 22 units/kg/hr, 12.68 mls/hr Documented By: TAYLOR Co-signed By: REMINGTON Admin: 06/11/24 09:34 Dose: 18 units/kg/hr, 10.374 mls/hr Documented By: ELVIS Co-signed By: PAULA Magnesium Sulfate (Magnesium Sulfate Ivpb) 2 gm in 50 mls @ 25 mls/hr IV X1 ONE Stop: 06/12/24 09:38 Last Admin: 06/12/24 08:56 Dose: 25 mls/hr Documented By: ELVIS Pharmacy Consult (Vancomycin Pharmacy To Dose 1 Each Each) 1 each IV QDAY PRN PRN Reason: CONSULT Stop: 07/08/24 08:59 Potassium Chloride (Potassium Chloride 10% 20 Meq/15 Ml Udc) 40 meq PO X1 ONE Stop: 06/09/24 07:53 Last Admin: 06/09/24 10:11 Dose: Not Given Documented By: GE Non-Admin Reason: Discontinued Potassium Chloride (Potassium Chloride 20 Meq Tabcr) 40 meq PO X1 ONE Stop: 06/10/24 07:13 Last Admin: 06/10/24 08:14 Dose: 40 meq Documented By: KF Potassium Chloride (Potassium Chloride 20 Meq Tabcr) 40 meq PO X1 ONE Stop: 06/11/24 07:11 Last Admin: 06/11/24 09:32 Dose: 40 meq Documented By: BR Potassium Chloride (Potassium Chloride 20 Meq Tabcr) 40 meq PO X1 ONE Stop: 06/12/24 07:38 Last Admin: 06/12/24 08:57 Dose: 40 meq Documented By: ELVIS Sodium Chloride (Sodium Chloride Rt 10% 15 Ml Nebu) 5 ml INH X1 ONE Stop: 06/08/24 05:15 None Consultations Consultation(s) initiated? (list below): No Diagnosis Differential Diagnosis ED Complaint MDM: IHSAN sepsis altered mental status Most likely diagnosis given after review of the tests above:: IHSAN Admission Indicated Admission indicated?: indicated Explain why admission is indicated or not indicated:: Further medical workup Admission Request Was there a request for admission?: No Disposition Plan Disposition Plan: Admit Medical Decision Making Differential Diagnosis Differential Diagnosis: IHSAN sepsis altered mental status Lab Data 06/12/24 04:08 06/12/24 04:08 Labs: Lab Results 06/07/24 06/07/24 06/07/24 Range/Units 19:52 22:54 23:01 WBC 25.8 H D 28.8 H (3.6-11.0) Thou/mm3 RBC 3.46 L 3.57 L (4.00-5.20) Miln/mm3 Hgb 10.2 L 10.5 L (12.0-16.0) g/dL Hct 31.3 L 31.4 L (36.0-46.0) % MCV 91 88 (80-100) fL MCH 29.5 29.4 (25.0-35.0) pg MCHC 32.6 33.4 (31.0-37.0) g/dl RDW Std Deviation 51.9 H 50.6 H (36.4-46.3) fL Plt Count 422 D 445 H (140-440) Thou/mm3 Neut % (Auto) 91 H 90 H (37-80) % Lymph % (Auto) 4 L 4 L (10-50) % [place] % (Auto) 3 4 (0-12) % Eos % (Auto) 1 1 (0-10) % Baso % (Auto) 0 0 (0-2.5) % Neut # (Auto) 23.4 H 26.0 H (1.8-7.7) Thou/mm3 Lymph # (Auto) 1.1 1.2 (1.0-4.8) Thou/mm3 [place] # (Auto) 0.9 H 1.2 H (0.0-0.8) Thou/mm3 Eos # (Auto) 0.2 0.2 (0.0-0.5) Thou/mm3 Baso # (Auto) 0.1 0.1 (0.0-0.2) Thou/mm3 Immature Gran # (Auto) 0.22 H 0.24 H (0.00-0.00) Thou/mm3 Absolute Nucleated RBC 0.00 0.00 (0.00-0.00) Thou/mm3 Immature Gran % 1 H 1 H (0-0) % Nucleated RBC % 0 0 (0) /100 WBC PT 11.3 (9.0-12.2) Seconds INR 1.0 (0.9-1.3) APTT 23.0 (22.0-36.0) Seconds Sodium 137 (136-145) mMol/L Potassium 4.1 (3.4-5.1) mMol/L Chloride 106 (98-107) mMol/L Carbon Dioxide 23.3 (20.0-31.0) mMol/L Anion Gap 8 (7-16) BUN 17 (9-23) mg/dL Creatinine 1.2 (0.6-1.3) mg/dL Estim Creat Clear Calc 25.6 L (>60) mL/min eGFR 45 L (60 - ) See Note BUN/Creatinine Ratio 14 (12-20) Ratio Glucose 177 H (74-106) mg/dL Calculated Osmolality 279 (275-295) Lactic Acid 1.1 (0.4-2.0) mMol/L Calcium 9.5 (8.3-10.6) mg/dL Corrected Calcium 10.0 (8.5-10.1) mg/dL Phosphorus 2.6 (2.4-5.1) mg/dL Magnesium 1.8 1.8 (1.6-2.6) mg/dL Total Bilirubin 0.5 (0.3-1.2) mg/dL AST 15 (0-34) U/L ALT 15 (10-49) U/L Alkaline Phosphatase 65 (46-116) U/L Lactate Dehydrogenase 159 (120-246) U/L Troponin I 0.032 (0.0-0.045) ng/mL B-Natriuretic Peptide 1061 H* 1148 H* (0-100) pg/mL Total Protein 6.1 (5.7-8.2) gm/dL Albumin 3.4 (3.4-4.8) gm/dL Globulin 2.7 (2.3-3.5) gm/dL Albumin/Globulin Ratio 1.3 (1.2-2.2) Lipase 28 (12-53) U/L Procalcitonin 0.32 (0.0-0.49) ng/ml Ur Collection Type Catheter Urine Color Yellow (Lt Yel-Yel) Urine Clarity Clear (Clear/Hazy) Urine pH 5.5 (5.0-7.0) Ur Specific [place] 1.015 (1.001-1.035) Urine Protein Trace (Neg - Trace) Urine Glucose (UA) Negative (Negative) Urine Ketones Negative (Negative) Urine Blood Negative (Negative) Urine Nitrite Negative (Negative) Urine Bilirubin Negative (Negative) Urine Urobilinogen (Auto) Negative (0.0-1.0) mg/dL Ur Leukocyte Esterase Negative (Negative) Urine RBC < 1 (0-3) /hpf Urine WBC 1 (0-5) /hpf Ur Squamous Epith Cells < 1 (0-5) /hpf Urine Bacteria None (None) Ur Culture Indicated? Not Indicated Discharge Plan Plan Patient Disposition: Admit Acute Care w/in Hospital Patient condition on transfer: Stable Problem List Clinical Impression: IHSAN (acute kidney injury) Patient/Caregiver Discharge Instructions Discharge Activity: as per physical therapy PA/RESIDENTIAL MONITOR Supervising Physician PA/RESIDENTIAL MONITOR Supervising Physician: Nando Schreiber ENP
[2024-06-07 22:56] VITALS: TEMP 38.8
[2024-06-07] MEDS: ACETAMINOPHEN 325 MG TABLET 650 MG PO (22:56)
[2024-06-07 23:01] VITALS: PULSE 75; PULSE 79; RESP 22; RESP 89; O2SAT 95
[2024-06-07 23:04] LABS: Lactate (Lactic Acid) 1.1 mMol/L (0.4-2.0)
--- NOTE | 2024-06-07 23:04 | PD.EDADDENDU ---
Emergency Room Addendum <Rosie Garcia - Last Filed: 06/08/24 03:12> Addendum Narrative: 2300: Care assumed from Nando Schreiber NP. Past medical, surgical, social and family history reviewed. Vitals and home medications reviewed. Results and treatment plan discussed. I will assume the care of the patient at this time and will follow the patient, pending labs and re-evaluation. Please refer to the emergency department record for history and examination from initial visit.? 0305-Tele rads; reports bilateral segmental pulmonary embolism and right middle lobe consolidation consistent with pneumonia 0310: Dr. Giang made aware of the patient?s HPI, PMHx, lab and/or radiology results. Treatment plan was discussed. Will admit for further evaluation and management. Accepts patient for admission. The resident reports to me that this attending knows this patient well because she was admitted to your service on this last admission. Telerad Preliminary Report Draft Patient: VIMAL WATKINS [facility]. Record#: [id number] Birthdate: 1940 Age/Sex: 83 / F Location: [facility] Attending Dr: Ordering Physician: Date of Service: Procedure(s): Accession Number(s): cc: ~ CT scan of the chest, abdomen and pelvis with intravenous contrast (axial sections with sagittal and coronal reformats) June 08, 2024 at 0116 hours Clinical History: 83-year-old female with diabetes and sepsis Technique: Helical axial sections with sagittal and coronal reformats of the abdomen and pelvis were obtained with intravenous contrast. Iterative reconstruction technique was employed to reduce patient radiation exposure. Contrast Dose: Not available at the time of interpretation. Radiation Dose: Total exam DLP 451 mGy/cm Comparison: Compared with the prior study dated May 29, 2024. Findings: There are filling defects in the main divisions of the right upper and lower lobes pulmonary arteries and lobar divisions of the left upper and lower lobe pulmonary arteries. The segmental and subsegmental pulmonary artery divisions couldn't be well assessed due to a suboptimal bolus of contrast. Patchy consolidation are noted in the right middle lobe. Subpleural reticular infiltrates are present in the lungs bilaterally. Streaky atelectasis is present in the lungs bilaterally. A small emphysematous bulla is noted in the right middle lobe. Minimal bilateral pleural effusions, new since the prior examination. No evidence of pneumothorax. The aorta and its branches demonstrate atheromatous calcification without evidence of aneurysm. No evidence of mediastinal mass or lymphadenopathy. No pericardial effusion. Moderate-sized hiatal hernia is again seen. A small hypodense lesion is noted in the liver, which is too small to characterize. Stable small hypodense lesions are noted in both kidneys, too small to characterize. The gallbladder, spleen, pancreas, and adrenals are unremarkable. No evidence of bowel obstruction. Multiple colonic diverticula are present without evidence of diverticulitis. Diffuse wall thickening and enhancement of the cecum and ascending colon, new since the prior examination. The appendix is not visualized. Small fat-containing umbilical hernia again noted. The urinary bladder is unremarkable. The uterus and adnexa are unremarkable. No free fluid or air. Osseous degenerative changes are noted. Impression: 1. Acute pulmonary thromboembolism in the bilateral pulmonary artery divisions as described. Recommend clinical correlation. 2. Patchy consolidations in the right middle lobe, increased since the prior examination. Recommend clinical correlation and follow-up. 3. Minimal bilateral pleural effusions, new since the prior examination. 4. Diffuse wall thickening and enhancement of the cecum and ascending colon, new since the prior examination. 5. No evidence of bowel obstruction, free air, or abscess. 6. Other findings as described above. Discussion Details: Results verbally communicated to : Dr. Nova at 03:01 AM 06/08/2024 Report Electronically Signed By: Lui Singh 06/08/2024 3:09:12 AM <Jessica Nova MD - Last Filed: 06/08/24 06:05> Addendum Narrative: 2300: Care assumed from Nando Schreiber NP. Past medical, surgical, social and family history reviewed. Vitals and home medications reviewed. Results and treatment plan discussed. I will assume the care of the patient at this time and will follow the patient, pending labs and re-evaluation. Please refer to the emergency department record for history and examination from initial visit.? 0305-Tele rads; reports bilateral segmental pulmonary embolism and right middle lobe consolidation consistent with pneumonia 0310: Dr. Giang made aware of the patient?s HPI, PMHx, lab and/or radiology results. Treatment plan was discussed. Will admit for further evaluation and management. Accepts patient for admission. The resident reports to me that this attending knows this patient well because she was admitted to your service on this last admission.
[2024-06-07 23:09] LABS: Basophils # (Auto) 0.1 Thou/mm3 (0.0-0.2); Basophils % (Auto) 0 % (0-2.5); Eosinophils # (Auto) 0.2 Thou/mm3 (0.0-0.5); Eosinophils % (Auto) 1 % (0-10); Hematocrit 31.4 % (36.0-46.0); Hemoglobin 10.5 g/dL (12.0-16.0); Immature Granulocytes % (Auto) 1 % (0-0); Immature Granulocytes Auto 0.24 Thou/mm3 (0.00-0.00); Lymphocytes # (Auto) 1.2 Thou/mm3 (1.0-4.8); Lymphocytes % (Auto) 4 % (10-50); Mean Corpuscular HGB Conc 33.4 g/dl (31.0-37.0); Mean Corpuscular Hemoglobin 29.4 pg (25.0-35.0); Mean Corpuscular Volume 88 fL (80-100); Monocytes # (Auto) 1.2 Thou/mm3 (0.0-0.8); Monocytes % (Auto) 4 % (0-12); Neutrophils % (Auto) 90 % (37-80); Nucleated Red Blood Cell % 0 /100 WBC (0); Platelet Count 445 Thou/mm3 (140-440); RDW Standard Deviation 50.6 fL (36.4-46.3); Red Blood Count 3.57 Miln/mm3 (4.00-5.20)
[2024-06-07 23:11] LABS: White Blood Count 28.8 Thou/mm3 (3.6-11.0)
[2024-06-07 23:25] LABS: Collection Type, Urine Catheter
[2024-06-07 23:35] LABS: Bilirubin,Urine Negative (Negative); Blood,Urine Negative (Negative); Clarity,Urine Clear (Clear/Hazy); Color,Urine Yellow (Lt Yel-Yel); Culture Indicated,Urine Not Indicated; Glucose, Urine Negative (Negative); Ketones,Urine Negative (Negative); Leukocyte Esterase,Urine Negative (Negative); Nitrite,Urine Negative (Negative); PH,Urine 5.5 (5.0-7.0); Protein,Urine Trace (Neg - Trace); RBC,Urine < 1 /hpf (0-3); Specific Gravity,Urine 1.015 (1.001-1.035); Squamous Epithelial Cell,Urine < 1 /hpf (0-5); Urobilinogen,Urine Negative mg/dL (0.0-1.0); WBC,Urine 1 /hpf (0-5)
[2024-06-07 23:41] LABS: Lipase 28 U/L (12-53); Magnesium 1.8 mg/dL (1.6-2.6); Phosphorous 2.6 mg/dL (2.4-5.1); Procalcitonin 0.32 ng/ml (0.0-0.49)
[2024-06-07 23:46] LABS: B-Type Natriuretic Peptide 1148 pg/mL (0-100)
[2024-06-07 23:54] LABS: LDH (Lactate Dehydrogenase) 159 U/L (120-246)
[2024-06-08] VITALS (20 sets, daily range): BP systolic 126–165; BP diastolic 66–86; PULSE 70–89; RESP 16–22; TEMP 36.1–37.7; O2SAT 91–100
--- NOTE | 2024-06-08 00:10 | XR_ITS ---
Examination: CT chest with intravenous contrast CT abdomen with intravenous contrast CT pelvis with intravenous contrast 2-D coronal and sagittal reconstructions Time of exam: June 08, 2024 0116 hrs. Indications: Bilateral leg swelling chest abdominal pain shortness of breath fever today, sepsis alert, diabetes CTDI: vol (mGy) : 6.96 DLP: (mGycm): 450 Technique: Multiple axial images of the chest, abdomen and pelvis with intravenous contrast, 3.0 mm slice thickness. Images obtained post intravenous injection Isovue 370 60 cc. 2-D sagittal and coronal reconstructions. Low dose protocols were performed. One or more of the following dose reduction techniques were used; automated exposure control, adjustment of the mA and/or KV according to patient size, use of iterative reconstruction technique. Findings: No thoracic aortic aneurysmal dilatation Large filling defects in the distal right and left main pulmonary arteries and multiple lower lobe and upper lobe pulmonary artery branches No mediastinal lymphadenopathy Small nodular areas in the right lower lobe Tiny indeterminate right lobe liver lesion Gallstones Atrophic left kidney Moderate renal parenchymal scar formation No hydronephrosis Heavy abdominal aortic calcification Normal appendix Significant wall thickening and hyperemia involving the right colon Colonic diverticulosis, no diverticulitis Atrophic uterus Urinary bladder intact Left hip hemiarthroplasty with satisfactory alignment Diffuse advanced lumbar degenerative disc disease Impression: Extensive pulmonary artery emboli Nodular parenchymal disease consistent with pneumonia in the right mid and lower lung zone Minimal bilateral pleural disease Significant nonspecific colitis pattern involving right colon
--- NOTE | 2024-06-08 03:09 | PRELIM_ITS ---
CT scan of the chest, abdomen and pelvis with intravenous contrast (axial sections with sagittal and coronal reformats) June 08, 2024 at 0116 hours Clinical History: 83-year-old female with diabetes and sepsis Technique: Helical axial sections with sagittal and coronal reformats of the abdomen and pelvis were obtained with intravenous contrast. Iterative reconstruction technique was employed to reduce patient radiation exposure. Contrast Dose: Not available at the time of interpretation. Radiation Dose: Total exam DLP 451 mGy/cm Comparison: Compared with the prior study dated May 29, 2024. Findings: There are filling defects in the main divisions of the right upper and lower lobes pulmonary arteries and lobar divisions of the left upper and lower lobe pulmonary arteries. The segmental and subsegmental pulmonary artery divisions couldn't be well assessed due to a suboptimal bolus of contrast. Patchy consolidation are noted in the right middle lobe. Subpleural reticular infiltrates are present in the lungs bilaterally. Streaky atelectasis is present in the lungs bilaterally. A small emphysematous bulla is noted in the right middle lobe. Minimal bilateral pleural effusions, new since the prior examination. No evidence of pneumothorax. The aorta and its branches demonstrate atheromatous calcification without evidence of aneurysm. No evidence of mediastinal mass or lymphadenopathy. No pericardial effusion. Moderate-sized hiatal hernia is again seen. A small hypodense lesion is noted in the liver, which is too small to characterize. Stable small hypodense lesions are noted in both kidneys, too small to characterize. The gallbladder, spleen, pancreas, and adrenals are unremarkable. No evidence of bowel obstruction. Multiple colonic diverticula are present without evidence of diverticulitis. Diffuse wall thickening and enhancement of the cecum and ascending colon, new since the prior examination. The appendix is not visualized. Small fat-containing umbilical hernia again noted. The urinary bladder is unremarkable. The uterus and adnexa are unremarkable. No free fluid or air. Osseous degenerative changes are noted. Impression: 1. Acute pulmonary thromboembolism in the bilateral pulmonary artery divisions as described. Recommend clinical correlation. 2. Patchy consolidations in the right middle lobe, increased since the prior examination. Recommend clinical correlation and follow-up. 3. Minimal bilateral pleural effusions, new since the prior examination. 4. Diffuse wall thickening and enhancement of the cecum and ascending colon, new since the prior examination. 5. No evidence of bowel obstruction, free air, or abscess. 6. Other findings as described above. Discussion Details: Results verbally communicated to : Dr. Nova at 03:01 AM 06/08/2024 Report Electronically Signed By: Lui Singh 06/08/2024 3:09:12 AM [EST]
--- NOTE | 2024-06-08 05:25 | XR_ITS ---
Examination: Venous duplex lower extremity sonogram, bilateral. Date and time of exam: Bilateral leg swelling this week Technique: Multiple sonographic images of the deep venous system have been obtained. B-mode/2-D grayscale imaging of vascular structures and Doppler spectral analysis (waveforms) and color performed Both legs are examined. Findings: Positive for nonocclusive thrombus in the right common femoral vein Positive for nonocclusive thrombus in the left peroneal vein Remaining deep venous systems are open Impression: Positive for nonocclusive thrombus right common femoral vein Positive for nonocclusive thrombus left peroneal vein
--- NOTE | 2024-06-08 05:25 | ECHO_ITS ---
Transthoracic Echo Report Ht (in): 57 Wt (lb): 120 Exam Location: Echo Lab Status: Inpatient Senior C Software Developer: WALTER Patino^^^^ Indications: Procedure Performed: BP: 128 / 76 HR: 72 Technical Quality: Fair MEASUREMENTS (Male / Female) Normal Values 2D ECHO LV Diastolic Diameter PLAX 4.2 cm 4.2 - 5.9 / 3.9 - 5.3 cm LV Systolic Diameter PLAX 2.9 cm IVS Diastolic Thickness 0.9 cm 0.6 - 1.0 / 0.6 - 0.9 cm LVPW Diastolic Thickness 0.8 cm 0.6 - 1.0 / 0.6 - 0.9 cm LV Relative Wall Thickness 0.4 LVOT Diameter 1.9 cm Aortic Root Diameter 2.9 cm LA Systolic Diameter LX 3.5 cm 3.0 - 4.0 / 2.7 - 3.8 cm LV Ejection Fraction MOD BP 64.0 % >= 55 % LV Cardiac Index MOD BP 2131.7 cm?/min?m? LV Ejection Fraction MOD 4C 60.8 % LV Cardiac Index MOD 4C 1799.6 cm?/min?m? LV Ejection Fraction 4C AL 66.7 % LV Cardiac Index 4C AL 2081.6 cm?/min?m? LV Ejection Fraction MOD 2C 65.1 % LV Cardiac Index MOD 2C 2357.8 cm?/min?m? LV Ejection Fraction 2C AL 66.6 % LV Cardiac Index 2C AL 2440.9 cm?/min?m? LA Volume Index 38.4 cm?/m? 16 - 28 cm?/m? Ascending Aorta Diameter 3.5 cm DOPPLER AV Peak Velocity 171.5 cm/s AV Peak Gradient 11.8 mmHg AV Mean Gradient 6.0 mmHg AV Velocity Time Integral 29.1 cm AI Peak Velocity 252.0 cm/s AI Peak Gradient 25.4 mmHg AI Pressure Half Time 787.5 ms LVOT Peak Velocity 96.1 cm/s LVOT Peak Gradient 3.7 mmHg LVOT Velocity Time Integral 19.2 cm LVOT Cardiac Index 2619.5 cm?/min?m? AV Area Cont Eq vti 1.9 cm? AV Area Cont Eq pk 1.6 cm? MV Area PHT 2.2 cm? Mitral E Point Velocity 68.7 cm/s Mitral A Point Velocity 83.5 cm/s Mitral E to A Ratio 0.8 LV E' Lateral Velocity 8.2 cm/s Mitral E to LV E' Lateral Ratio 8.4 LV E' Septal Velocity 5.7 cm/s Mitral E to LV E' Septal Ratio 12.2 TR Peak Velocity 385.2 cm/s TR Peak Gradient 59.4 mmHg PV Peak Velocity 99.0 cm/s PV Peak Gradient 3.9 mmHg RVOT Peak Velocity 35.5 cm/s FINDINGS Left Ventricle Normal left ventricular size, wall thickness, systolic function with no obvious regional wall motion abnormalities.there is grade I diastolic dysfunction of the left ventricle (impaired relaxation pattern). The left ventricular ejection fraction is normal, estimated at 55-60%. Right Ventricle The right ventricle is normal in size and systolic function. Estimated right ventricular systolic pressure is severely elevated, 80 mmHg. Left Atrium The left atrial cavity size is mildly increased. Right Atrium The right atrial cavity size is mildly increased. Atrial Septum The interatrial septum appears normal with no evidence of a shunt. Aorta The aorta is normal by two-dimensional, color flow and Doppler interrogation. Mitral Valve Mild thickening of the mitral valve leaflets. Mild mitral regurgitation. Mild mitral annular calcification. Aortic Valve Aortic valve sclerosis. Trace to mild aortic valve regurgitation. Tricuspid Valve There is moderate to severe tricuspid valve regurgitation. Pulmonic Valve Mild pulmonic valve regurgitation. Vessels The pulmonary artery appears normal. The inferior vena cava pulmonary and hepatic veins appear normal. Pericardium The pericardium is normal by two-dimensional imaging. There is no significant pericardial effusion. CONCLUSIONS indication: Hx of CHF LV appears normal wirh EF 55-60%. Diastolic Dysfunction I present. RV appears normal with severely elevated RVSP 80 mmHg. LA mildly dilated. RA mildly dilated. MV has mild MR & MAC AOV is sclerotic with trace-mild AI TV has mod-severe TR. Rama Beasley (Electronically Signed) Final Date: 08 June 2024 16:43
--- NOTE | 2024-06-08 05:29 | PD.RESHP ---
Documentation for date of: 06/08/24 HPI History of Present Illness History of present illness: This is an 83-year-old female PMHx of unspecified CHF, CAD s/p PCI, CKD III, HTN, T2DM, and dementia presented to ED with generalized weakness, fever and shortness of breath. She was admitted here last week for IHSAN secondary to UTI. She felt well for a few days after discharge, however, she began experiencing worsening shortness of breath, exertional dyspnea, and overall fatigue in the following days. Temps appear to have worsened over the last few days and she had a couple of fever spikes of 99.9. Per daughter, she overall appeared ill, not eating well secondary to low appetite, overall not very engaged. Otherwise, she had no complaints including headaches, cough, shortness of breath, GI or urinary symptoms. She has baseline dementia, usually she can recall her name but has trouble recent and distant memory. She can usually ambulate with assistance. ED COURSE: Tmax 101.9, RR 80s, BP 152/79, initially satting 91% on room air, improved to 95% on 3% NC. WBC 28.8, Hgb 10.5, PLT 445. Normal coag studies. Chemistry significant for GLUCOSE 177, BNP 1148. Normal troponin, Pro-Calc and lactic acid. Prelim CXR showed vascular congestion. Prelim CT showed right lobar pneumonia, bilateral segmental pulmonary embolism. Admitted for acute pulmonary embolism and sepsis secondary to pneumonia. PMHx: Unspecified CHF, CAD s/p PCI, CKD III, HTN, T2DM, and dementia PSHx: Not significant MEDS: Pending med rec. ALLERGIES: ERYTHROMYCIN, latex, PENICILLIN, TETRACYCLINE, LATIX FHx: Unknown. SH: Livers with daughter. Denies alcohol, tobacco, or drug use. Exam Vital Signs Temp Pulse Resp BP Pulse Ox O2 Del Method O2 Flow Rate 99.3 F 74 19 145/70 H 96 Nasal Cannula 3 06/08/24 03:07 06/08/24 03:07 06/08/24 03:07 06/08/24 03:07 06/08/24 03:07 06/08/24 03:07 06/08/24 03:07 Narrative Exam GENERAL Normal appearing elderly female, no apparent distress, satting well on 1 L NC Alert, oriented to name only (baseline) HEENT NCAT.?KEDAR. Oral mucosa is moist. Patent Nares NECK Supple, nontender, no thyromegaly, no meningismus, no JVD, no step offs CHEST RRR, no m/g/r CTAB, no w/r/r. Symmetrical chest rise. No intercostal subcostal retraction Atraumatic, nontender, no crepitus, symmetrical expansion. ABDOMEN Soft, flat, nontender. No guarding/rebound tenderness/masses. Bowel sounds presents EXTREMITIES No edema/cyanosis.? SKIN Warm and dry, no jaundice/rashes. NEUROMUSCULAR No lumbar or midline, no CVA, no paraspinal muscle spasm or tenderness. Unable to comply with neuro exam secondary to dementia. No focal neurologic deficits. PSYCHIATRY Normal mood and affect, cooperative, no SI or HI or hallucinations. Results: Labs 06/08/24 05:40 06/08/24 05:40 Labs: Short CBC 06/07/24 06/07/24 Range/Units 19:52 22:54 WBC 25.8 H D 28.8 H (3.6-11.0) Thou/mm3 Hgb 10.2 L 10.5 L (12.0-16.0) g/dL Hct 31.3 L 31.4 L (36.0-46.0) % Plt Count 422 D 445 H (140-440) Thou/mm3 BMP 06/07/24 19:52 Sodium 137 Potassium 4.1 Chloride 106 Carbon Dioxide 23.3 BUN 17 Creatinine 1.2 Glucose 177 H Calcium 9.5 Cardiac Enzymes 06/07/24 Range/Units 19:52 Troponin I 0.032 (0.0-0.045) ng/mL Liver Function 06/07/24 Range/Units 19:52 Total Bilirubin 0.5 (0.3-1.2) mg/dL AST 15 (0-34) U/L ALT 15 (10-49) U/L Alkaline Phosphatase 65 (46-116) U/L Albumin 3.4 (3.4-4.8) gm/dL Urine 06/07/24 Range/Units 23:01 Urine Color Yellow (Lt Yel-Yel) Urine Clarity Clear (Clear/Hazy) Urine pH 5.5 (5.0-7.0) Ur Specific [place] 1.015 (1.001-1.035) Urine Protein Trace (Neg - Trace) Urine Glucose (UA) Negative (Negative) Quality Measures Quality Measures VTE prophylaxis Advance care planning discussed with:: patient and child Medications Home Medications and Allergies Home Medications ?Medication ?Instructions ?Recorded ?Confirmed ?Type verapamil 240 mg tablet,extended 240 mg PO QDAY 05/02/20 06/08/24 History release albuterol sulfate 90 mcg/actuation 2 puff inhalation Q6H 02/15/21 06/08/24 History aerosol inhaler insulin glargine 100 unit/mL (3 10 unit subcut QPM 02/15/21 08/01/21 History mL) subcutaneous pen (Basaglar KwikPen U-100 Insulin) lisinopril 20 mg tablet 20 mg PO QDAY 02/15/21 06/08/24 History clopidogrel 75 mg tablet 75 mg PO QDAY 08/01/21 06/08/24 History furosemide 40 mg tablet 40 mg PO QAM 08/01/21 06/08/24 History glipizide 5 mg tablet 5 mg PO QDAY 08/01/21 06/08/24 History nitroglycerin 0.4 mg sublingual 0.4 mg buccal [id number] PRN Chest 08/01/21 06/08/24 History tablet Pain potassium chloride 10 mEq 10 meq PO BID 08/01/21 08/01/21 History capsule,extended release pravastatin 40 mg tablet 40 mg PO QDAY 08/01/21 06/08/24 History aspirin 81 mg tablet,delayed 81 mg PO QDAY 06/08/24 06/08/24 History release (Adult Low Dose Aspirin) calcitriol 0.25 mcg capsule 0.25 mcg PO .3 TIMES A WK 06/08/24 06/08/24 History docusate sodium 100 mg capsule 100 mg PO QDAY 06/08/24 06/08/24 History (Colace) hydralazine 25 mg tablet 25 mg PO TID 06/08/24 06/08/24 History isosorbide mononitrate 60 mg 60 mg PO QDAY 06/08/24 06/08/24 History tablet,extended release 24 hr memantine 10 mg tablet 5 mg PO BID 06/08/24 06/08/24 History quetiapine 25 mg tablet 25 mg PO HS 06/08/24 06/08/24 History sitagliptin phosphate 50 mg tablet 50 mg PO QDAY 06/08/24 06/08/24 History (Januvia) verapamil 240 mg 24 hr 240 mg PO QDAY 06/08/24 06/08/24 History capsule,extended release Allergies Allergy/AdvReac Type Severity Reaction Status Date / Time erythromycin base Allergy Severe DIFF Verified 05/30/24 11:35 BREATHING latex Allergy Severe RASH AND Verified 05/30/24 11:35 ITCHING Penicillins Allergy Severe ITCHING Verified 05/30/24 11:35 tetracycline Allergy Severe RASH Verified 05/30/24 11:35 Visit Medications Discontinued Medications Acetaminophen (Acetaminophen 325 Mg Tablet) 650 mg PO X1 ONE Stop: 06/07/24 22:47 Last Admin: 06/07/24 22:56 Dose: 650 mg Assessment & Plan Plan In summary: 83-year-old female PMHx of unspecified CHF, CAD s/p PCI, CKD III, HTN, T2DM, and dementia presented to ED with generalized weakness, fever and shortness of breath. Admitted for acute pulmonary embolism and sepsis secondary to pneumonia. Acute hypoxemic respiratory failure Acute pulmonary embolism HCA pneumonia with 3/4 SIRS+ CHF exacebration? Presenting with 1 week of SOB, generalized fatigue, fever, and exertional dyspnea. Last week, she was treated here for UTI. Evidently she was doing well until a few days after discharge when she began deteriorating. Met 3/4 SIRS criteria Tmax 101.9, RR 22, WBC 28.8. Bedside COVID, influenza AMB were negative. Prelim DEPUTY CHIEF COUNSEL showed right lobar pneumonia and bilateral segmental PE. Has history of CHF, EF unknown, no recent echo on file, follows up with Dr. Urbina. Admission BNP 1148. CXR showed moderate vascular congestion. On exam, 1+ bilateral lower extremity edema, and clear lung sounds. ? Continue LOVENOX 1 mg/kg daily (CrCl <30) ? Continue VANCOMYCIN and CEFEPIME (06/08 to present) ? Continue DuoNebs q.6h. ? Continue FUROSEMIDE 40 mg IV BID ? Oxygen PRN ? Pending blood, sputum and urine culture ? Pending echocardiogram (Dr. Urbina to read) ? Pending bilateral lower extremity venous ultrasound ? Consider cardiology consult CKD stage III She is a patient of Dr. Sky. Admitted last week for an IHSAN secondary to UTI, and was followed up by nephrology. Kidney function appears to have recovered. Admission CR 1.2, GFR 45. ? Renally dose meds, avoid overdiuresis and NEPHROTOXINS ? Daily CMP HTN CAD, S/p PCI Currently normotensive. She is on CLOPIDOGREL 75 mg daily. No signs of ACS, no chest pain, troponin negative. ? Will hold CLOPIDOGREL while she was on LOVENOX as above. ? Resume ANTIHYPERTENSIVE as indicated, after med rec. T2DM Admission GLUCOSE 177. No recent A1c on file. ? INSULIN sliding scale ? Accu-Cheks Dementia She has chronic severe dementia and follows up with neurologist Dr. Trujillo. She stated her name, but cannot recall her birthday, has trouble with recent events and memory recall. Appears to be her baseline according to her daughter. ? Continue home medications after reconciliation Hx monoclonal gammopathy Mild thrombocytosis Follows up annually with Dr. Katz for gammopathy. Currently not on any treatment regimen. PLT 445, likely reactive. ? Daily CBC Normocytic anemia, chronic Hgb 9.8, baseline around 10. No signs or symptoms of abnormal bleeding. No chronic studies. ? Daily CBC ? Consider further workup fro anemia Health maintenance Diet: Cardiac/renal GI prophylaxis: PROTONIX DVT prophylaxis: LOVENOX Antibiotics: VANCOMYCIN, CEFEPIME CODE STATUS: Full code Disposition: Treating AHRF, acute PE. Patient case was discussed with attending, Norma Giang MD. Jorge Luis Stroud DO PGYI Attending Provider Attestation/Addendum I attest that I was physically present for the evaluation, physical examination, lab and imaging review of the patient with the residents. I discussed the case with the residents and agree with the findings and plans of care as documented above. Patient is an 83 years old female with past medical history of CHF, CAD status post PCI, CKD stage III, hypertension and diabetes who presented to the ED with complaint of generalized weakness, fever and shortness of breath. Patient was recently discharged after being managed for complicated UTI, outpatient treatment failure and IHSAN. Following discharge, patient was feeling better but started having shortness of breath, fatigue and generalized weakness along with feverish feeling for which she decided to visit the ED. Denied any chest pain, cough or lower extremity pain. In the ED, she was found to have a temperature of 101.9. Initial saturation was 91% on room air but improved to 95% on 3 L nasal cannula. She had WBC of 28.8, BNP 1148. Chest x-ray was done which showed vascular congestion. Preliminary CT chest showed right lobar pneumonia along with bilateral segmental pulmonary emboli. We will admit patient for management of acute hypoxic respiratory failure secondary to bilateral pulmonary embolism, healthcare associated pneumonia. We will start patient on Lovenox 1 mg/kg daily renally dosed. We will start her on vancomycin and cefepime. There is also concern for volume overload, we will start on Lasix 40 mg IV twice daily. We will obtain blood, sputum and urine culture, echocardiography, cardiology consult. We will also obtain bilateral lower extremity venous ultrasound to figure out the cause of PE. Plan to resume her antihypertensives after med rec if blood pressure continues to be high. Mansi Giang MD
[2024-06-08] MEDS: CEFEPIME INJ 2 GM in SODIUM CHLORIDE 0.9% (Popper) 50 ML IV (05:47)
[2024-06-08] MEDS: VANCOMYCIN/NS 1 GM IVPB 200 ML IV (05:56)
[2024-06-08 06:02] LABS: INR 1.1 (0.9-1.3); Partial Thromboplastin Time 24.5 Seconds (22.0-36.0)
[2024-06-08] MEDS: ALBUTEROL/IPRATROPIUM (Duoneb) RT SOL 3 ML NEBU INH ×3 (06:10→18:10)
[2024-06-08] MEDS: FUROSEMIDE INJ 10 MG/ML 4ML VIAL 40 MG IVP ×2 (06:23→17:19)
[2024-06-08 07:16] LABS: Alanine Aminotransferase 14 U/L (10-49); Albumin, Serum 3.3 gm/dL (3.4-4.8); Albumin/Globulin Ratio 1.3 (1.2-2.2); Alkaline Phosphatase 59 U/L (46-116); Anion Gap 9 (7-16); Aspartate Amino Transferase 17 U/L (0-34); BUN/Creatinine Ratio 13 Ratio (12-20); Bilirubin,Total 0.5 mg/dL (0.3-1.2); Blood Urea Nitrogen 14 mg/dL (9-23); Calcium 9.4 mg/dL (8.3-10.6); Carbon Dioxide 23.5 mMol/L (20.0-31.0); Chloride 107 mMol/L (98-107); Creatinine (Component) 1.1 mg/dL (0.6-1.3); Globulin 2.5 gm/dL (2.3-3.5); Glucose 146 mg/dL (74-106); Osmolality,Calculated 281 (275-295); Potassium 3.8 mMol/L (3.4-5.1); Sodium 139 mMol/L (136-145); Total Protein 5.8 gm/dL (5.7-8.2); eGFR 50 See Note
--- NOTE | 2024-06-08 07:25 | PC.NURSE ---
PT AWAKE AND ALERT UPON ASSUMPTION OF CARE, DENIES ANY PAIN OR DISCOMFORT, REMAINS SINUS ON TELE, 95% ON 3L NC. CALL HOOKS REMAINS IN REACH, WILL CONTINUE W/POC. CALLED PROVIDER TO CONFIRM ABX WAS DUPLICATE ORDER, GAVE VERBAL TO NOT ADMINISTER.
[2024-06-08 07:32] LABS: Basophils # (Auto) 0.1 Thou/mm3 (0.0-0.2); Basophils % (Auto) 0 % (0-2.5); Eosinophils # (Auto) 0.2 Thou/mm3 (0.0-0.5); Eosinophils % (Auto) 1 % (0-10); Hemoglobin 9.8 g/dL (12.0-16.0); Immature Granulocytes % (Auto) 1 % (0-0); Immature Granulocytes Auto 0.45 Thou/mm3 (0.00-0.00); Lymphocytes # (Auto) 1.2 Thou/mm3 (1.0-4.8); Lymphocytes % (Auto) 4 % (10-50); Mean Corpuscular HGB Conc 32.7 g/dl (31.0-37.0); Mean Corpuscular Hemoglobin 29.2 pg (25.0-35.0); Mean Corpuscular Volume 89 fL (80-100); Monocytes # (Auto) 1.3 Thou/mm3 (0.0-0.8); Monocytes % (Auto) 4 % (0-12); Neutrophils # (Auto) 29.7 Thou/mm3 (1.8-7.7); Neutrophils % (Auto) 90 % (37-80); Nucleated Red Blood Cell % 0 /100 WBC (0); Platelet Count 406 Thou/mm3 (140-440); Red Blood Count 3.36 Miln/mm3 (4.00-5.20); White Blood Count 32.9 Thou/mm3 (3.6-11.0)
--- NOTE | 2024-06-08 07:40 | PC.NURSE ---
US AT BEDSIDE.
--- NOTE | 2024-06-08 09:01 | PC.NURSE ---
PT TAKEN TO FLOOR BY THIS RN ON TELE, RECONNECTED TO O2 ON FLOOR.
[2024-06-08] MEDS: ENOXAPARIN SOD INJ 60 MG/0.6 ML SYRINGE 50 MG SC (09:59)
[2024-06-08] MEDS: PANTOPRAZOLE INJ 40 MG VIAL IVP (10:00)
--- NOTE | 2024-06-08 10:41 | XR_ITS ---
Examination: CTA chest with intravenous contrast 2-D reconstructions 3-D reconstructions, vascular Date and time of exam: June 08, 2024 1252 hrs. Indications: Shortness of breath chest pain beginning 2 days ago, extensive pulmonary artery emboli on CT chest June 08, 2024 0118 hrs. CTDI: vol (mGy) 14 DLP: (mGycm) 276 Technique: Multiple axial sections of the thorax have been obtained. 3 mm slice thickness, from below the hemidiaphragms to above the apices of the lungs. Mediastinal and lung density settings have been obtained. 2-D sagittal and coronal reconstructions. 3-D angiographic renderings, 3-D volume renderings, 3D post processing, vascular maximum intensity projections obtained. Contrast administered is 100 cc Isovue-370. Low dose protocols were performed. One or more of the following dose reduction techniques were used; automated exposure control, adjustment of the mA and/or KV according to patient size, use of iterative reconstruction technique. Findings: No thoracic aortic aneurysm dilatation Multiple large bilateral pulmonary artery emboli in distal right and left main pulmonary artery segments Multiple bilateral upper lobe and lower lobe pulmonary artery emboli No mediastinal lymphadenopathy Mild nodular parenchymal disease right base No focal liver or splenic lesion Small gallstones Impression: Numerous large bilateral pulmonary artery emboli
[2024-06-08 12:49] LABS: INR 1.1 (0.9-1.3); Partial Thromboplastin Time 30.2 Seconds (22.0-36.0); Prothrombin Time 12.2 Seconds (9.0-12.2)
--- NOTE | 2024-06-08 14:24 | ESPR_ITS ---
<Statement entered by Ana Reilly MD - 06/11/24 07:50> I reviewed above note and agree with findings and plans. I have also personally examined the patient with medicine team and went over assessment and plan with medical team including technical support internship and resident physician. <Statement entered by Venecia Gant MD - 06/08/24 15:09> I discussed with and supervised my co-resident involved in the care of this patient. I agree with the assessment and plan as documented above. Patient seen and examined at bedside. In no acute distress. Saturating comfortably on 5L O2. CT imaging shows multiple bilateral pulmonary emboli, and DVT positive for lower extremity non-occlusive thrombus. Patient denies history of blood clots before. She is on therapeutic lovenox. Ordered CTA to assess extent of thrombi and to evaluate if patient candidate for thrombectomy. Will also touch base with patient's diet therapist. Will get echo to asses for RH strain. Patient does have leukocytosis and fever. Fever may be component of PE, however given chest imaging findings of possible pnuemonia and leukocytosis, will also empirically treat with IV antibiotics. Venecia Gant MD PGY-3 Documentation for date of: 06/08/24 Subjective Subjective Interval history: Patient examined at bedside. No major complaints. Vitals are stable. Oxygen requirements at bedside 5L NC saturating 98%. She denies any chest pain, palpitations, shortness of breath. Labs show uptrending leukocytosis 33. Follow-up with CTA for additional imaging on PE. Will consult cardiology for possible thrombectomy for patient. Continue Lovenox for treatment of patient's bilateral segmental PEs. Lower extremity ultrasound positive for nonocclusive thrombus in right common femoral vein and left peroneal vein. Echo is pending. Continue Vanco and cefepime for treatment of pneumonia until cultures result for de-escalation. Patient's daughter Dinora was updated on possible course of management. Exam Vital Signs Temp Pulse Resp BP Pulse Ox O2 Del Method O2 Flow Rate 97.0 F 75 18 128/66 98 Nasal Cannula 2 06/08/24 11:00 06/08/24 14:12 06/08/24 14:12 06/08/24 11:00 06/08/24 14:12 06/08/24 11:00 06/08/24 14:12 Narrative Exam General: Elderly lady, no acute distress, cooperative HEENT: NCAT, No JVD noted. Mucosa moist. Pupils are equal and reactive to light bilaterally Cardiovascular: Normal S1 and S2. Regular rate and rhythm. Respiratory: Lungs are clear to auscultation bilaterally. No wheezing or crackles heard. Abdomen: Soft, nontender, not distended, normal bowel sounds. Skin: Warm to touch, dry, no rashes noted Musculoskeletal: No gross injuries. Able to move all 4 extremities. No pitting edema Neuro: oriented to name. No focal neuro deficits. Psych: Normal affect and mood Objective Labs 06/08/24 05:40 06/08/24 05:40 Labs: Laboratory Results - last 24 hr 06/07/24 06/07/24 06/07/24 19:52 22:54 23:01 WBC 25.8 H D 28.8 H RBC 3.46 L 3.57 L Hgb 10.2 L 10.5 L Hct 31.3 L 31.4 L MCV 91 88 MCH 29.5 29.4 MCHC 32.6 33.4 RDW Std Deviation 51.9 H 50.6 H Plt Count 422 D 445 H Neut % (Auto) 91 H 90 H Lymph % (Auto) 4 L 4 L Nance % (Auto) 3 4 Eos % (Auto) 1 1 Baso % (Auto) 0 0 Neut # (Auto) 23.4 H 26.0 H Lymph # (Auto) 1.1 1.2 Nance # (Auto) 0.9 H 1.2 H Eos # (Auto) 0.2 0.2 Baso # (Auto) 0.1 0.1 Immature Gran # (Auto) 0.22 H 0.24 H Absolute Nucleated RBC 0.00 0.00 Immature Gran % 1 H 1 H Nucleated RBC % 0 0 PT 11.3 INR 1.0 APTT 23.0 Sodium 137 Potassium 4.1 Chloride 106 Carbon Dioxide 23.3 Anion Gap 8 BUN 17 Creatinine 1.2 Estim Creat Clear Calc 25.6 L eGFR 45 L BUN/Creatinine Ratio 14 Glucose 177 H Calculated Osmolality 279 Lactic Acid 1.1 Calcium 9.5 Corrected Calcium 10.0 Phosphorus 2.6 Magnesium 1.8 1.8 Total Bilirubin 0.5 AST 15 ALT 15 Alkaline Phosphatase 65 Lactate Dehydrogenase 159 Troponin I 0.032 B-Natriuretic Peptide 1061 H* 1148 H* Total Protein 6.1 Albumin 3.4 Globulin 2.7 Albumin/Globulin Ratio 1.3 Lipase 28 Procalcitonin 0.32 Ur Collection Type Catheter Urine Color Yellow Urine Clarity Clear Urine pH 5.5 Ur Specific [place] 1.015 Urine Protein Trace Urine Glucose (UA) Negative Urine Ketones Negative Urine Blood Negative Urine Nitrite Negative Urine Bilirubin Negative Urine Urobilinogen (Auto) Negative Ur Leukocyte Esterase Negative Urine RBC < 1 Urine WBC 1 Ur Squamous Epith Cells < 1 Urine Bacteria None Ur Culture Indicated? Not Indicated 06/08/24 06/08/24 05:40 11:53 WBC 32.9 H RBC 3.36 L Hgb 9.8 L Hct 30.0 L MCV 89 MCH 29.2 MCHC 32.7 RDW Std Deviation 52.0 H Plt Count 406 D Neut % (Auto) 90 H Lymph % (Auto) 4 L Nance % (Auto) 4 Eos % (Auto) 1 Baso % (Auto) 0 Neut # (Auto) 29.7 H Lymph # (Auto) 1.2 Nance # (Auto) 1.3 H Eos # (Auto) 0.2 Baso # (Auto) 0.1 Immature Gran # (Auto) 0.45 H Absolute Nucleated RBC 0.00 Immature Gran % 1 H Nucleated RBC % 0 PT 12.0 12.2 INR 1.1 1.1 APTT 24.5 30.2 Sodium 139 Potassium 3.8 Chloride 107 Carbon Dioxide 23.5 Anion Gap 9 BUN 14 Creatinine 1.1 Estim Creat Clear Calc 28.0 L eGFR 50 L BUN/Creatinine Ratio 13 Glucose 146 H Calculated Osmolality 281 Lactic Acid Calcium 9.4 Corrected Calcium 10.0 Phosphorus Magnesium Total Bilirubin 0.5 AST 17 ALT 14 Alkaline Phosphatase 59 Lactate Dehydrogenase Troponin I B-Natriuretic Peptide Total Protein 5.8 Albumin 3.3 L Globulin 2.5 Albumin/Globulin Ratio 1.3 Lipase Procalcitonin Ur Collection Type Urine Color Urine Clarity Urine pH Ur Specific [place] Urine Protein Urine Glucose (UA) Urine Ketones Urine Blood Urine Nitrite Urine Bilirubin Urine Urobilinogen (Auto) Ur Leukocyte Esterase Urine RBC Urine WBC Ur Squamous Epith Cells Urine Bacteria Ur Culture Indicated? Quality Measures Quality Measures none Advance care planning discussed with:: patient Assessment & Plan Assessment Current Active Medications: Generic Name Dose Route Start Last Admin Trade Name Freq PRN Reason Stop Dose Admin Acetaminophen 650 mg 06/08/24 05:14 Acetaminophen 325 Mg Tablet PO 07/08/24 05:13 Q6H PRN PAIN SCALE 1-3 (mild Acetaminophen 650 mg 06/08/24 05:14 Acetaminophen 325 Mg Tablet PO 07/08/24 05:13 Q6H PRN Fever >100.4 Albuterol/Ipratropium 3 ml 06/08/24 07:00 06/08/24 14:11 Albuterol/Ipratropium (Duoneb) Rt Fabi 3 Ml Nebu INH 07/08/24 06:59 3 ml Q6HRRT SHYLA Administration Dextrose 25 ml 06/08/24 07:11 Dextrose 50%-Water Inj 50 Ml Syringe IV 07/08/24 07:10 Q15MIN PRN BG 50-70 responsive npo pt Dextrose 50 ml 06/08/24 07:11 Dextrose 50%-Water Inj 50 Ml Syringe IV 07/08/24 07:10 Q15MIN PRN BG <50 OR BG <70 & pt unresponsive Enoxaparin Sodium 50 mg 06/08/24 09:00 06/08/24 09:59 Enoxaparin Sod Inj 60 Mg/0.6 Ml Syringe SC 06/22/24 08:59 50 mg QDAY SHYLA Administration Furosemide 40 mg 06/08/24 06:00 06/08/24 06:23 Furosemide Inj 10 Mg/Ml 4ml Vial IVP 07/08/24 05:59 40 mg BIDD SHYLA Administration Glucagon 1 mg 06/08/24 07:11 Glucagon Inj 1 Mg Vial IM Q15MIN PRN BG <70, and no IV access Cefepime HCl 2 gm/ Sodium 50 mls @ 100 mls/hr 06/08/24 07:15 06/08/24 07:52 Chloride IV 06/15/24 07:14 Not Given DAILY [facility] Vancomycin/Sodium Chloride 750 mg in 150 mls @ 120 mls/hr 06/09/24 10:00 Vancomycin/Ns 750 Mg Ivpb IV 06/16/24 09:59 Q24H [facility] Insulin Human Lispro 0 unit 06/08/24 07:30 Insulin Lispro (Admelog) 1 Unit/0.01 Ml Unit SC 07/08/24 07:29 ACHS [facility] Protocol Ondansetron HCl 4 mg 06/08/24 05:14 Ondansetron Inj 2 Mg/Ml Inj 2 Ml IV 07/08/24 05:13 Q6H PRN NAUSEA OR VOMITING Protocol Oxycodone/Acetaminophen 1 tab 06/08/24 05:14 Oxycodone/Apap 5/325 Tablet PO 06/13/24 05:13 Q6H PRN PAIN SCALE 4-6 (Moderate Pantoprazole Sodium 40 mg 06/08/24 09:00 06/08/24 10:00 Pantoprazole Inj 40 Mg Vial IVP 07/08/24 08:59 40 mg QDAY SHYLA Administration Pharmacy Consult 1 each 06/08/24 09:00 Vancomycin Pharmacy To Dose 1 Each Each IV 07/08/24 08:59 QDAY PRN CONSULT Plan Afsaneh Chandra 83-year-old female PMHx of unspecified CHF, CAD s/p PCI, CKD III, HTN, T2DM, and dementia presented to ED with generalized weakness, fever and shortness of breath. Admitted for AHRF 2/2 acute pulmonary embolism and pneumonia. #AHRF 2/2 #Acute pulmonary embolism #CAP Met 3/4 SIRS criteria Tmax 101.9, RR 22, WBC 28.8, BNP 1148 on admission. No evidence of end organ damage. Bedside COVID, influenza were negative. CTA showed right lobar pneumonia and bilateral segmental PE. CXR showed moderate vascular congestion. Lower extremity ultrasound positive for nonocclusive thrombus in right common femoral vein and left peroneal vein. ? LOVENOX 1 mg/kg daily (CrCl <30) ? VANCOMYCIN and CEFEPIME (06/08 to present) ? Continue DuoNebs q.6h. ? FUROSEMIDE 40 mg IV BID ? Oxygen PRN ? Pending blood, sputum and urine culture ? Pending echo -possible thrombectomy--cardiology rec pending #CKD stage III She is a patient of Dr. Sky. Admission CR 1.2, GFR 45. -maintenance fluids -avoid nephrotoxic agents -daily CMP #Hx HTN #Hx CAD, S/p PCI #Hx CHF Has history of CHF, EF unknown, no recent echo on file, follows with Dr. Urbina. She is on clopidogrel 75 mg daily. No signs of ACS, no chest pain, troponin negative. ? hold clopidogrel while while on Lovenox -Home medication lisinopril 20 mg daily -Home medication furosemide 40 mg daily #Hx T2DM Admission GLUCOSE 177. Takes 10 units glargine, glipizide 5 mg at home. No recent A1c on file. ? INSULIN sliding scale ? Accu-Cheks -Follow-up A1c #Hx Dementia She has chronic severe dementia and follows up with neurologist Dr. Trujillo. She stated her name, but cannot recall her birthday, has trouble with recent events and memory recall. Appears to be her baseline according to her daughter. ? Does not appear to be on any agents #Hx monoclonal gammopathy #Mild thrombocytosis Follows up annually with Dr. Katz for gammopathy. Currently not on any treatment regimen. PLT 445, likely reactive. ? Daily CBC #Normocytic anemia, chronic Hgb 9.8, baseline around 10. No signs or symptoms of abnormal bleeding. No chronic studies. ? Daily CBC Health maintenance Diet: Cardiac/renal GI prophylaxis: PROTONIX DVT prophylaxis: LOVENOX CODE STATUS: Full code Disposition: med surg, Treating AHRF, acute PE. The patient's management plan was discussed with my attending physician Dr. Reilly and senior Dr. Gant. Lupe Gonzales, PGY-1
--- NOTE | 2024-06-08 19:36 | PC.LAC ---
Pt transferred to room 266 via bed with all belongings in place report given to Chiara FLORES
[2024-06-09] VITALS (13 sets, daily range): BP systolic 119–145; BP diastolic 57–79; PULSE 62–98; RESP 14–22; TEMP 36.2–37.2; O2SAT 90–100; BMI 25.9; BMI 11.0
[2024-06-09] MEDS: ALBUTEROL/IPRATROPIUM (Duoneb) RT SOL 3 ML NEBU INH ×4 (01:33→18:05)
[2024-06-09] MEDS: FUROSEMIDE INJ 10 MG/ML 4ML VIAL 40 MG IVP (05:32)
[2024-06-09 05:55] LABS: Basophils # (Auto) 0.1 Thou/mm3 (0.0-0.2); Basophils % (Auto) 0 % (0-2.5); Eosinophils # (Auto) 0.1 Thou/mm3 (0.0-0.5); Eosinophils % (Auto) 0 % (0-10); Hematocrit 28.9 % (36.0-46.0); Hemoglobin 9.7 g/dL (12.0-16.0); Immature Granulocytes % (Auto) 2 % (0-0); Immature Granulocytes Auto 0.51 Thou/mm3 (0.00-0.00); Lymphocytes # (Auto) 1.2 Thou/mm3 (1.0-4.8); Lymphocytes % (Auto) 4 % (10-50); Mean Corpuscular HGB Conc 33.6 g/dl (31.0-37.0); Mean Corpuscular Hemoglobin 29.5 pg (25.0-35.0); Mean Corpuscular Volume 88 fL (80-100); Monocytes # (Auto) 1.3 Thou/mm3 (0.0-0.8); Monocytes % (Auto) 5 % (0-12); Neutrophils # (Auto) 26.2 Thou/mm3 (1.8-7.7); Neutrophils % (Auto) 89 % (37-80); Nucleated Red Blood Cell % 0 /100 WBC (0); Platelet Count 429 Thou/mm3 (140-440); RDW Standard Deviation 50.2 fL (36.4-46.3); Red Blood Count 3.29 Miln/mm3 (4.00-5.20); White Blood Count 29.4 Thou/mm3 (3.6-11.0)
[2024-06-09 06:27] LABS: Alanine Aminotransferase 10 U/L (10-49); Albumin, Serum 3.4 gm/dL (3.4-4.8); Albumin/Globulin Ratio 1.4 (1.2-2.2); Alkaline Phosphatase 65 U/L (46-116); Anion Gap 12 (7-16); Aspartate Amino Transferase < 10 U/L (0-34); BUN/Creatinine Ratio 14 Ratio (12-20); Bilirubin,Total 0.5 mg/dL (0.3-1.2); Blood Urea Nitrogen 17 mg/dL (9-23); Calcium 8.7 mg/dL (8.3-10.6); Calcium (Corrected) 9.2 mg/dL (8.5-10.1); Carbon Dioxide 26.3 mMol/L (20.0-31.0); Chloride 101 mMol/L (98-107); Creatinine (Component) 1.2 mg/dL (0.6-1.3); Estimated Creatinine Clearance 25.6 mL/min (>60); Globulin 2.5 gm/dL (2.3-3.5); Glucose 122 mg/dL (74-106); Magnesium 1.7 mg/dL (1.6-2.6); Osmolality,Calculated 280 (275-295); Phosphorous 3.5 mg/dL (2.4-5.1); Potassium 3.1 mMol/L (3.4-5.1); Sodium 139 mMol/L (136-145); Total Protein 5.9 gm/dL (5.7-8.2); eGFR 45 See Note
[2024-06-09 06:30] LABS: Glucose Estimated Average 160 mg/dL (80-131); Hemoglobin A1C 7.2 % Hgb (4.8-6.0)
--- NOTE | 2024-06-09 07:47 | ESPR_ITS ---
<Statement entered by Ana Reilly MD - 06/11/24 07:51> I reviewed above note and agree with findings and plans. I have also personally examined the patient with medicine team and went over assessment and plan with medical team including general internist and physician leader and resident physician. Documentation for date of: 06/09/24 Subjective Subjective Interval history: Patient seen and examined at bedside. No acute events overnight. No acute complaints this morning. Saturating on 3L NC in no respiratory distress. Denies weight changes, night sweats. Patient's granddaughter at bedside. Explained imaging findings of PE and non-occlusive DVTs. 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 A bone biopsy of the rib was done in the past which showed B cell proliferation. Discussed possibility that there is a underlying cancer component to patient's blood clots. Explained plan to continue anticoagulation with plans to transition to oral. Patient will need to return to the [facility] for further workup. Reached out to Dr. Urbina today, who is out of town. Briefly discussed patient's case. Since she is hemodynamically stable, he recommends patient to be anticoagulated and to follow up with him outpatient if candidate for thrombectomy. Exam Vital Signs Temp Pulse Resp BP Pulse Ox O2 Del Method O2 Flow Rate 98 F 85 18 141/76 H 99 Nasal Cannula 3 06/09/24 07:22 06/09/24 07:22 06/09/24 07:22 06/09/24 07:22 06/09/24 07:22 06/09/24 07:22 06/09/24 07:22 Narrative Exam General: Elderly lady, no acute distress, cooperative HEENT: NCAT, No JVD noted. Mucosa moist. Cardiovascular: Normal S1 and S2. Regular rate and rhythm. Respiratory: Lungs are clear to auscultation bilaterally. Abdomen: Soft, nontender, not distended, normal bowel sounds. Skin: Warm to touch, dry, no rashes noted Musculoskeletal: Able to move all 4 extremities. No pitting edema Neuro: oriented to name. No focal neuro deficits. Objective Labs 06/09/24 05:30 06/09/24 05:30 Labs: Laboratory Results - last 24 hr 06/08/24 06/09/24 11:53 05:30 WBC 29.4 H RBC 3.29 L Hgb 9.7 L Hct 28.9 L MCV 88 MCH 29.5 MCHC 33.6 RDW Std Deviation 50.2 H Plt Count 429 Neut % (Auto) 89 H Lymph % (Auto) 4 L [place] % (Auto) 5 Eos % (Auto) 0 Baso % (Auto) 0 Neut # (Auto) 26.2 H Lymph # (Auto) 1.2 [place] # (Auto) 1.3 H Eos # (Auto) 0.1 Baso # (Auto) 0.1 Immature Gran # (Auto) 0.51 H Absolute Nucleated RBC 0.00 Immature Gran % 2 H Nucleated RBC % 0 PT 12.2 INR 1.1 APTT 30.2 Sodium 139 Potassium 3.1 L D Chloride 101 Carbon Dioxide 26.3 Anion Gap 12 BUN 17 Creatinine 1.2 Estim Creat Clear Calc 25.6 L eGFR 45 L BUN/Creatinine Ratio [address] Glu mg/dL 160 H Hemoglobin A1c 7.2 H Calculated Osmolality 280 Calcium 8.7 Corrected Calcium 9.2 Phosphorus 3.5 Magnesium 1.7 Total Bilirubin 0.5 AST < 10 ALT 10 Alkaline Phosphatase 65 Total Protein 5.9 Albumin 3.4 Globulin 2.5 Albumin/Globulin Ratio 1.4 Quality Measures Quality Measures none Advance care planning discussed with:: patient and child Assessment & Plan Assessment Current Active Medications: Generic Name Dose Route Start Last Admin Trade Name Freq PRN Reason Stop Dose Admin Acetaminophen 650 mg 06/08/24 05:14 Acetaminophen 325 Mg Tablet PO 07/08/24 05:13 Q6H PRN PAIN SCALE 1-3 (mild Acetaminophen 650 mg 06/08/24 05:14 Acetaminophen 325 Mg Tablet PO 07/08/24 05:13 Q6H PRN Fever >100.4 Albuterol/Ipratropium 3 ml 06/08/24 07:00 06/09/24 07:10 Albuterol/Ipratropium (Duoneb) Rt Fabi 3 Ml Nebu INH 07/08/24 06:59 3 ml Q6HRRT SHYLA Administration Dextrose 25 ml 06/08/24 07:11 Dextrose 50%-Water Inj 50 Ml Syringe IV 07/08/24 07:10 Q15MIN PRN BG 50-70 responsive npo pt Dextrose 50 ml 06/08/24 07:11 Dextrose 50%-Water Inj 50 Ml Syringe IV 07/08/24 07:10 Q15MIN PRN BG <50 OR BG <70 & pt unresponsive Enoxaparin Sodium 50 mg 06/08/24 09:00 06/08/24 09:59 Enoxaparin Sod Inj 60 Mg/0.6 Ml Syringe SC 06/22/24 08:59 50 mg QDAY SHYLA Administration Furosemide 40 mg 06/08/24 06:00 06/09/24 05:32 Furosemide Inj 10 Mg/Ml 4ml Vial IVP 07/08/24 05:59 40 mg BIDD SHYLA Administration Glucagon 1 mg 06/08/24 07:11 Glucagon Inj 1 Mg Vial IM Q15MIN PRN BG <70, and no IV access Cefepime HCl 2 gm/ Sodium 50 mls @ 100 mls/hr 06/08/24 07:15 06/08/24 07:52 Chloride IV 06/15/24 07:14 Not Given DAILY SHYLA Vancomycin/Sodium Chloride 750 mg in 150 mls @ 120 mls/hr 06/09/24 10:00 Vancomycin/Ns 750 Mg Ivpb IV 06/16/24 09:59 Q24H [facility] Protocol Insulin Human Lispro 0 unit 06/08/24 07:30 06/08/24 22:23 Insulin Lispro (Admelog) 1 Unit/0.01 Ml Unit SC 07/08/24 07:29 Not Given ACHS [facility] Protocol Ondansetron HCl 4 mg 06/08/24 05:14 Ondansetron Inj 2 Mg/Ml Inj 2 Ml IV 07/08/24 05:13 Q6H PRN NAUSEA OR VOMITING Protocol Oxycodone/Acetaminophen 1 tab 06/08/24 05:14 Oxycodone/Apap 5/325 Tablet PO 06/13/24 05:13 Q6H PRN PAIN SCALE 4-6 (Moderate Pantoprazole Sodium 40 mg 06/08/24 09:00 06/08/24 10:00 Pantoprazole Inj 40 Mg Vial IVP 07/08/24 08:59 40 mg QDAY SHYLA Administration Pharmacy Consult 1 each 06/08/24 09:00 Vancomycin Pharmacy To Dose 1 Each Each IV 07/08/24 08:59 QDAY PRN CONSULT Plan Afsaneh Prateek 83-year-old female PMHx of unspecified CHF, CAD s/p PCI, CKD III, HTN, T2DM, and dementia presented to ED with generalized weakness, fever and shortness of breath. Admitted for AHRF 2/2 acute pulmonary embolism and pneumonia. #AHRF 2/2 acute pulmonary embolism with RH strain CTA showed bilateral segmental PE. Initial concern for pneumonia given fever, leukocytosis. Patient empirically started on IV antibiotics, discontinued (06/08-06/09). COVID, Flu negative. Lower extremity ultrasound positive for nonocclusive thrombus in right common femoral vein and left peroneal vein. Echo RSVP 80mmg suggestive of right heart strain ? LOVENOX 1 mg/kg daily (CrCl <30) - Endarectomy unavailable at this time - Transition to oral anticoagulation on discharge - Follow up with computer hardware developer Dr. 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 Path report for biopsy of rib lesion at the time showed B cell proliferation. - Recommend following up outpatient for clots, follow up for MGUS #Hx HTN - Lisnopril 20mg - Restart rest of home meds as tolerated #Hx CAD, S/p PCI #Hx HFpEF - Hold plavix while on lovenox - Restart statin - Lasix 40 IV decreased from BID to Qday #CKD stage III #Normocytic anemia, chronic - Avoid nephrotoxic agents; renally dose medication #Hx T2DM, A1c 7.2 - ISS #Hx Dementia - Restart home memantine Health maintenance Diet: Cardiac/renal GI prophylaxis: PROTONIX DVT prophylaxis: LOVENOX CODE STATUS: Full code Disposition: AHRF 2/2 PE, pending PT. Anticipate discharge within 24-48 hours + home oxygen I have reviewed and discussed the patient's care with my attending, Dr. Tommie Gant MD PGY-3
--- NOTE | 2024-06-09 08:54 | PC.SS ---
CONCRETE LABORER conducted bedside contact with the patient conduct initial assessment and to discuss discharge planning.? At bedside with patient was granddaughter, Jessica Arellano.? Patient possesses a history of dementia.? Granddaughter provided information for assessment and discharge planning.? Patient resides at home with daughter, Billie Contreras .? Patient utilizes a walker to assist with ambulation.? Patient does not use home oxygen, currently on 3L nasal cannula.? Patient requires assistance with completion of ADL?s.? Patient?s medical surrogate decision maker is daughter, Jessica Arellano.? Patient aligned with [facility].? Patient?s PCP is Dr. Sky.? Patient?s yard worker is Dr. Urbina.? Dr. Sky is patient?s fiberglass boat assembly supervisor, patient does not participate with dialysis.? Patient utilizes [facility] for pharmacy services.? Discharge plan is for the patient to return home at the time of discharge.? Family will provide transportation on behalf of the patient.? If patient requires home oxygen at the time of discharge, no preferred vendor identified. ?If home health services are recommended no preferred provider identified.? No further intervention required at this time, social media job titles will be available to address any further concerns.? Next of Kin: Billie Contreras D/C Plan: Home
[2024-06-09 09:32] LABS: Sed Rate (ESR) 43 mm/hr (0-30)
[2024-06-09] MEDS: ACETAMINOPHEN 325 MG TABLET 650 MG PO (09:52)
[2024-06-09] MEDS: ONDANSETRON INJ 2 MG/ML INJ 2 ML 4 MG IV (09:52)
[2024-06-09] MEDS: PANTOPRAZOLE INJ 40 MG VIAL IVP (09:53)
[2024-06-09] MEDS: ENOXAPARIN SOD INJ 60 MG/0.6 ML SYRINGE 50 MG SC (09:53)
[2024-06-09] MEDS: POTASSIUM CHL 10 mEq IVPB 10 MEQ/100 ML BAG 100 MEQ IV (10:03)
[2024-06-09] MEDS: POTASSIUM CHL 10 mEq IVPB 10 MEQ/100 ML BAG 75 MEQ IV ×3 (11:35→14:59)
[2024-06-09] MEDS: MEMANTINE HCL 5 MG TABLET PO (20:21)
[2024-06-09] MEDS: INSULIN LISPRO (AdmeLOG) 1 UNIT/0.01 ML UNIT SC (21:13)
[2024-06-10] VITALS (13 sets, daily range): BP systolic 117–141; BP diastolic 62–81; PULSE 47–101; RESP 14–22; TEMP 36.1–37.2; O2SAT 93–100; BMI 26.6; BMI 11.0
[2024-06-10] MEDS: ALBUTEROL/IPRATROPIUM (Duoneb) RT SOL 3 ML NEBU INH ×4 (01:30→18:30)
[2024-06-10 05:52] LABS: Basophils # (Auto) 0.1 Thou/mm3 (0.0-0.2); Basophils % (Auto) 0 % (0-2.5); Eosinophils # (Auto) 0.3 Thou/mm3 (0.0-0.5); Eosinophils % (Auto) 1 % (0-10); Hematocrit 28.4 % (36.0-46.0); Hemoglobin 9.3 g/dL (12.0-16.0); Immature Granulocytes % (Auto) 1 % (0-0); Immature Granulocytes Auto 0.24 Thou/mm3 (0.00-0.00); Lymphocytes # (Auto) 1.1 Thou/mm3 (1.0-4.8); Lymphocytes % (Auto) 4 % (10-50); Mean Corpuscular HGB Conc 32.7 g/dl (31.0-37.0); Mean Corpuscular Hemoglobin 29.6 pg (25.0-35.0); Mean Corpuscular Volume 90 fL (80-100); Monocytes # (Auto) 1.2 Thou/mm3 (0.0-0.8); Monocytes % (Auto) 5 % (0-12); Neutrophils # (Auto) 22.9 Thou/mm3 (1.8-7.7); Neutrophils % (Auto) 89 % (37-80); Nucleated Red Blood Cell % 0 /100 WBC (0); Platelet Count 445 Thou/mm3 (140-440); RDW Standard Deviation 51.2 fL (36.4-46.3); Red Blood Count 3.14 Miln/mm3 (4.00-5.20); White Blood Count 25.9 Thou/mm3 (3.6-11.0)
[2024-06-10 06:32] LABS: Alanine Aminotransferase < 7 U/L (10-49); Albumin, Serum 3.2 gm/dL (3.4-4.8); Albumin/Globulin Ratio 1.3 (1.2-2.2); Alkaline Phosphatase 70 U/L (46-116); Anion Gap 10 (7-16); Aspartate Amino Transferase 12 U/L (0-34); BUN/Creatinine Ratio 15 Ratio (12-20); Bilirubin,Total 0.4 mg/dL (0.3-1.2); Blood Urea Nitrogen 18 mg/dL (9-23); Calcium 8.4 mg/dL (8.3-10.6); Carbon Dioxide 25.9 mMol/L (20.0-31.0); Chloride 101 mMol/L (98-107); Creatinine (Component) 1.2 mg/dL (0.6-1.3); Estimated Creatinine Clearance 25.9 mL/min (>60); Globulin 2.4 gm/dL (2.3-3.5); Glucose 111 mg/dL (74-106); Magnesium 1.8 mg/dL (1.6-2.6); Osmolality,Calculated 276 (275-295); Phosphorous 2.7 mg/dL (2.4-5.1); Potassium 3.2 mMol/L (3.4-5.1); Sodium 137 mMol/L (136-145); Total Protein 5.6 gm/dL (5.7-8.2); eGFR 45 See Note
[2024-06-10] MEDS: POTASSIUM CHLORIDE 20 mEq TABCR 40 MEQ PO (08:14)
[2024-06-10] MEDS: PRAVASTATIN SODIUM 10 MG TABLET 40 MG PO (08:14)
[2024-06-10] MEDS: ENOXAPARIN SOD INJ 60 MG/0.6 ML SYRINGE 50 MG SC (08:14)
[2024-06-10] MEDS: PANTOPRAZOLE INJ 40 MG VIAL IVP (08:14)
[2024-06-10] MEDS: MEMANTINE HCL 5 MG TABLET PO ×2 (08:14→20:12)
[2024-06-10] MEDS: FUROSEMIDE INJ 10 MG/ML 4ML VIAL 40 MG IVP (08:15)
[2024-06-10] MEDS: ONDANSETRON INJ 2 MG/ML INJ 2 ML 4 MG IV (08:38)
--- NOTE | 2024-06-10 09:20 | PD.RESPRO ---
Documentation for date of: 06/10/24 Exam Vital Signs Temp Pulse Resp BP Pulse Ox O2 Del Method O2 Flow Rate 97.7 F 84 20 117/62 97 Nasal Cannula 2 06/10/24 08:00 06/10/24 08:15 06/10/24 08:00 06/10/24 08:15 06/10/24 08:00 06/10/24 08:00 06/10/24 08:00 Objective Labs 06/10/24 05:05 06/10/24 05:05 Labs: Laboratory Results - last 24 hr 06/09/24 06/10/24 05:30 05:05 WBC 25.9 H RBC 3.14 L Hgb 9.3 L Hct 28.4 L MCV 90 MCH 29.6 MCHC 32.7 RDW Std Deviation 51.2 H Plt Count 445 H Neut % (Auto) 89 H Lymph % (Auto) 4 L [place] % (Auto) 5 Eos % (Auto) 1 Baso % (Auto) 0 Neut # (Auto) 22.9 H Lymph # (Auto) 1.1 [place] # (Auto) 1.2 H Eos # (Auto) 0.3 Baso # (Auto) 0.1 Immature Gran # (Auto) 0.24 H Absolute Nucleated RBC 0.00 Immature Gran % 1 H Nucleated RBC % 0 ESR 43 H Sodium 137 Potassium 3.2 L Chloride 101 Carbon Dioxide 25.9 Anion Gap 10 BUN 18 Creatinine 1.2 Estim Creat Clear Calc 25.9 L eGFR 45 L BUN/Creatinine Ratio 15 Glucose 111 H Calculated Osmolality 276 Calcium 8.4 Corrected Calcium 9.0 Phosphorus 2.7 Magnesium 1.8 Total Bilirubin 0.4 AST 12 ALT < 7 L Alkaline Phosphatase 70 Total Protein 5.6 L Albumin 3.2 L Globulin 2.4 Albumin/Globulin Ratio 1.3 Quality Measures Quality Measures none Assessment & Plan Assessment Current Active Medications: Generic Name Dose Route Start Last Admin Trade Name Freq PRN Reason Stop Dose Admin Acetaminophen 650 mg 06/08/24 05:14 06/09/24 09:52 Acetaminophen 325 Mg Tablet PO 07/08/24 05:13 650 mg Q6H PRN Administration PAIN SCALE 1-3 (mild Acetaminophen 650 mg 06/08/24 05:14 Acetaminophen 325 Mg Tablet PO 07/08/24 05:13 Q6H PRN Fever >100.4 Albuterol/Ipratropium 3 ml 06/08/24 07:00 06/10/24 07:01 Albuterol/Ipratropium (Duoneb) Rt Fabi 3 Ml Nebu INH 07/08/24 06:59 3 ml Q6HRRT SHLYA Administration Dextrose 25 ml 06/08/24 07:11 Dextrose 50%-Water Inj 50 Ml Syringe IV 07/08/24 07:10 Q15MIN PRN BG 50-70 responsive npo pt Dextrose 50 ml 06/08/24 07:11 Dextrose 50%-Water Inj 50 Ml Syringe IV 07/08/24 07:10 Q15MIN PRN BG <50 OR BG <70 & pt unresponsive Enoxaparin Sodium 50 mg 06/08/24 09:00 06/10/24 08:14 Enoxaparin Sod Inj 60 Mg/0.6 Ml Syringe SC 06/22/24 08:59 50 mg QDAY SHYLA Administration Furosemide 40 mg 06/10/24 09:00 06/10/24 08:15 Furosemide Inj 10 Mg/Ml 4ml Vial IVP 07/10/24 08:59 40 mg QDAY SHYLA Administration Glucagon 1 mg 06/08/24 07:11 Glucagon Inj 1 Mg Vial IM Q15MIN PRN BG <70, and no IV access Insulin Human Lispro 0 unit 06/08/24 07:30 06/10/24 07:29 Insulin Lispro (Admelog) 1 Unit/0.01 Ml Unit SC 07/08/24 07:29 Not Given ACHS SHYLA Protocol Memantine 5 mg 06/09/24 21:00 06/10/24 08:14 Memantine Hcl 5 Mg Tablet PO 07/09/24 20:59 5 mg BID SHYLA Administration Ondansetron HCl 4 mg 06/08/24 05:14 06/10/24 08:38 Ondansetron Inj 2 Mg/Ml Inj 2 Ml IV 07/08/24 05:13 4 mg Q6H PRN Administration NAUSEA OR VOMITING Protocol Oxycodone/Acetaminophen 1 tab 06/08/24 05:14 Oxycodone/Apap 5/325 Tablet PO 06/13/24 05:13 Q6H PRN PAIN SCALE 4-6 (Moderate Pantoprazole Sodium 40 mg 06/08/24 09:00 06/10/24 08:14 Pantoprazole Inj 40 Mg Vial IVP 07/08/24 08:59 40 mg QDAY SHYLA Administration Pravastatin Sodium 40 mg 06/10/24 09:00 06/10/24 08:14 Pravastatin Sodium 10 Mg Tablet PO 07/10/24 08:59 40 mg QDAY SHYLA Administration
--- NOTE | 2024-06-10 09:55 | ESPR_ITS ---
<Statement entered by Ana Reilly MD - 06/12/24 13:24> I reviewed above note and agree with findings and plans. I have also personally examined the patient with medicine team and went over assessment and plan with medical team including senior international tax manager and resident physician. Documentation for date of: 06/10/24 Subjective Subjective Interval history: Overnight: Patient experienced episode of pressure-like chest pain, reproducible on palpation. Patient was given 1 tab [place] which resolved the pain. Patient seen and examined at bedside, resting comfortably. Patient denies current chest pain, palpitations, orthopnea, shortness of breath. Chest pain overnight suspected secondary to PEs. Cardiology consulted for possible thrombectomy. Follow-up with cardiac consult. PT eval later today, follow-up. Exam Vital Signs Temp Pulse Resp BP Pulse Ox O2 Del Method O2 Flow Rate 97.7 F 84 20 117/62 97 Nasal Cannula 2 06/10/24 08:00 06/10/24 08:15 06/10/24 08:00 06/10/24 08:15 06/10/24 08:00 06/10/24 08:00 06/10/24 08:00 Narrative Exam PE: Gen: Well-developed and well-nourished. HEENT: NCAT, PERRLA, EOMI, MMM, anicteric conjunctivae. CVS: normal S1 and S2. RRR. No M/R/G. Resp: CTA B/L. No rhonchi, rales, crackles or wheezing. Abd: soft, non-tender, non-distended. MSK: Good ROM in BUE & BLE. No edema or rash. Neuro: CN II-XII grossly intact. Strength 5/5 in BUE & BLE. Alert and oriented x3. Psych: appropriate mood and affect. Objective Labs 06/10/24 05:05 06/10/24 05:05 Labs: Laboratory Results - last 24 hr 06/10/24 05:05 WBC 25.9 H RBC 3.14 L Hgb 9.3 L Hct 28.4 L MCV 90 MCH 29.6 MCHC 32.7 RDW Std Deviation 51.2 H Plt Count 445 H Neut % (Auto) 89 H Lymph % (Auto) 4 L [place] % (Auto) 5 Eos % (Auto) 1 Baso % (Auto) 0 Neut # (Auto) 22.9 H Lymph # (Auto) 1.1 [place] # (Auto) 1.2 H Eos # (Auto) 0.3 Baso # (Auto) 0.1 Immature Gran # (Auto) 0.24 H Absolute Nucleated RBC 0.00 Immature Gran % 1 H Nucleated RBC % 0 Sodium 137 Potassium 3.2 L Chloride 101 Carbon Dioxide 25.9 Anion Gap 10 BUN 18 Creatinine 1.2 Estim Creat Clear Calc 25.9 L eGFR 45 L BUN/Creatinine Ratio 15 Glucose 111 H Calculated Osmolality 276 Calcium 8.4 Corrected Calcium 9.0 Phosphorus 2.7 Magnesium 1.8 Total Bilirubin 0.4 AST 12 ALT < 7 L Alkaline Phosphatase 70 Total Protein 5.6 L Albumin 3.2 L Globulin 2.4 Albumin/Globulin Ratio 1.3 Quality Measures Quality Measures VTE prophylaxis Advance care planning discussed with:: patient Assessment & Plan Assessment Current Active Medications: Generic Name Dose Route Start Last Admin Trade Name Freq PRN Reason Stop Dose Admin Acetaminophen 650 mg 06/08/24 05:14 06/09/24 09:52 Acetaminophen 325 Mg Tablet PO 07/08/24 05:13 650 mg Q6H PRN Administration PAIN SCALE 1-3 (mild Acetaminophen 650 mg 06/08/24 05:14 Acetaminophen 325 Mg Tablet PO 07/08/24 05:13 Q6H PRN Fever >100.4 Albuterol/Ipratropium 3 ml 06/08/24 07:00 06/10/24 07:01 Albuterol/Ipratropium (Duoneb) Rt Fabi 3 Ml Nebu INH 07/08/24 06:59 3 ml Q6HRRT SHYLA Administration Dextrose 25 ml 06/08/24 07:11 Dextrose 50%-Water Inj 50 Ml Syringe IV 07/08/24 07:10 Q15MIN PRN BG 50-70 responsive npo pt Dextrose 50 ml 06/08/24 07:11 Dextrose 50%-Water Inj 50 Ml Syringe IV 07/08/24 07:10 Q15MIN PRN BG <50 OR BG <70 & pt unresponsive Enoxaparin Sodium 50 mg 06/08/24 09:00 06/10/24 08:14 Enoxaparin Sod Inj 60 Mg/0.6 Ml Syringe SC 06/22/24 08:59 50 mg QDAY SHYLA Administration Furosemide 40 mg 06/10/24 09:00 06/10/24 08:15 Furosemide Inj 10 Mg/Ml 4ml Vial IVP 07/10/24 08:59 40 mg QDAY SHYLA Administration Glucagon 1 mg 06/08/24 07:11 Glucagon Inj 1 Mg Vial IM Q15MIN PRN BG <70, and no IV access Insulin Human Lispro 0 unit 06/08/24 07:30 06/10/24 07:29 Insulin Lispro (Admelog) 1 Unit/0.01 Ml Unit SC 07/08/24 07:29 Not Given ACHS SHYLA Protocol Memantine 5 mg 06/09/24 21:00 06/10/24 08:14 Memantine Hcl 5 Mg Tablet PO 07/09/24 20:59 5 mg BID SHYLA Administration Ondansetron HCl 4 mg 06/08/24 05:14 06/10/24 08:38 Ondansetron Inj 2 Mg/Ml Inj 2 Ml IV 07/08/24 05:13 4 mg Q6H PRN Administration NAUSEA OR VOMITING Protocol Oxycodone/Acetaminophen 1 tab 06/08/24 05:14 Oxycodone/Apap 5/325 Tablet PO 06/13/24 05:13 Q6H PRN PAIN SCALE 4-6 (Moderate Pantoprazole Sodium 40 mg 06/08/24 09:00 06/10/24 08:14 Pantoprazole Inj 40 Mg Vial IVP 07/08/24 08:59 40 mg QDAY SHYLA Administration Pravastatin Sodium 40 mg 06/10/24 09:00 06/10/24 08:14 Pravastatin Sodium 10 Mg Tablet PO 07/10/24 08:59 40 mg QDAY SHYLA Administration Plan Afsaneh Chandra 83-year-old female PMHx of unspecified CHF, CAD s/p PCI, CKD III, HTN, T2DM, and dementia presented to ED with generalized weakness, fever and shortness of breath. Admitted for AHRF 2/2 acute pulmonary embolism and pneumonia. #AHRF 2/2 acute pulmonary embolism with RH strain CTA showed bilateral segmental PE. Initial concern for pneumonia given fever, leukocytosis. Patient empirically started on IV antibiotics, discontinued (06/08-06/09). COVID, Flu negative. Lower extremity ultrasound positive for nonocclusive thrombus in right common femoral vein and left peroneal vein. Echo RSVP 80mmg suggestive of right heart strain Thrombectomy and patient not available currently, consulted cardiology (Dr. Gutierrez) for inpatient versus outpatient thrombectomy. -LOVENOX 1 mg/kg daily (CrCl <30) -Transition to oral anticoagulation on discharge -Follow up with fire department battalion chief Dr. Urbina outpatient -[facility] with [facility] -Follow-up consult with Dr. Gutierrez. 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 Path report for biopsy of rib lesion at the time showed B cell proliferation. -Recommend following up outpatient for clots, follow up for MGUS #Hx HTN -Lisnopril 20mg -Restart rest of home meds as tolerated #Hx CAD, S/p PCI #Hx HFpEF -Hold plavix while on lovenox -Statin resumed -Lasix 40 IV decreased from BID to Qday #CKD stage III #Normocytic anemia, chronic -Avoid nephrotoxic agents; renally dose medication #Hx T2DM, A1c 7.2 -ISS #Hx Dementia -Restart home memantine Diet: Cardiac/renal GI prophylaxis: PROTONIX DVT prophylaxis: LOVENOX CODE STATUS: Full code Lines: Peripheral IV I have reviewed and discussed the patient's care with my attending, Dr. Tommie Pearl MD PGY?1
--- NOTE | 2024-06-10 10:53 | ESCONSULT_ITS ---
<Statement entered by Jeffery Gutierrez MD - 06/11/24 02:11> I have personally seen and examined the patient separately on the above date of service and discussed the plan of care with the resident. I reviewed the resident Dr. Roberto Rader consultation progress note and agree with the resident findings and plan in the note above and have also edited the documentation to reflect my findings and plan. A 83-year-old female with a past medical history of CAD s/p PCI to RCA in 2007, last cath in 2021 with 100% occlusion of the distal RCA stent, mild disease of the LAD, LCx and RCA, diastolic congestive heart failure or HFpEF, essential hypertension, type 2 diabetes mellitus, angina and monoclonal gammopathy presented to the emergency department on 06/07/2024 for further evaluation of generalized weakness, anemia fever as well as shortness of breath. Patient was admitted to the hospital for possible working diagnosis of pneumonia and then a CTA chest was performed on 06/08/2024 which showed large bilateral pulmonary emboli in distal right, left pulmonary artery segments, multiple bilateral upper lobe lung lower lobey emboli. Bilateral duplex was also positive for nonocclusive thrombus in the right common femoral vein as well as nonocclusive thrombus in left peroneal vein, bases bilateral pneumonia, Cardiology consulted today on 06/10/2024 for further evaluation of pulmonary embolism and to assist in potential for possible thrombectomy. Assessment and plan: 1. Acute hypoxic respiratory failure is mostly secondary to bilateral pulmonary embolism 2. Acute bilateral PE-right greater than left 3. Acute bilateral lower extremity DVT 4. Bibasilar pneumonia 5. CAD s/p PCI to RCA in 2007 and now ART DEALER of distal RCA, mild disease rest of the arteries #7. 8. Essential hypertension 9. Type 2 diabetes mellitus 10. Anemia 11. IgM monoclonal gammopathy 12. Mild cognitive insufficiency. Reviewed the CTA of the chest done which showed significant right coronary artery just before the bifurcation involving the lower lobe and upper lobe and right middle lobe. Left main PA has mild thrombus or clot extending into the left lower lobe and upper lobe but only partially. Duplex positive for bilateral lower extremity DVT including the left side below knee left peroneal as well as right peroneal veins and rest of the veins were clear. Patient did present to the hospital on 06/07/2024 night and was admitted on 06/08/2024. Patient has been doing well for the last couple of days and has been started on Lovenox by the primary team. Oxygen requirements have been decreasing and now is only on 3 L/min. Commend to continue anticoagulation and switch Lovenox to heparin drip and eventually can be changed to Eliquis DVT/PE dose. Patient does have right heart strain with elevated BNP at 1140, troponin was negative and patient is not hemodynamically unstable -given the above findings patient is not a candidate for urgent catheter based therapies including any thrombolysis or thrombectomy. Also RVSP elevated at 80 mmHg. Continue anticoagulation as noted above and will plan to do procedures only patient is in stable and is hemodynamically unstable her oxygen requirements are increasing. Echocardiogram reviewed and showed normal LV and RV function. LVEF is 55 to 60%. Diastolic dysfunction stage I. RVSP is also severely elevated at 80 mmHg. Mild biatrial dilatation. Mild aortic valve sclerosis without stenosis. Moderate to severe TR. Mild MR mild MAC. Unclear etiology of the PE at the present point of time and will need to rule out all other causes including malignancy versus prolonged immobility versus hypercoagulable states. Regarding her CAD continue with Plavix for now and statin. Patient denies any Chest pain chest pressure and also he troponins were negative and the EKG did not show any kind of acute ST-T changes. Cardiac echo from 2021 were reviewed and showed 100% in-stent occlusion of the distal RCA with collaterals from left to right and the mild disease of rest of RCA as well as LAD. Requested control of blood pressure as well as diabetes mellitus. Treatment of pneumonia as per primary team Management of rest of the medical conditions as per primary team and other consultants. Thank you for the consult and allowing me to participate in the care of the patient. Cardiology will continue to follow. Jeffery Gutierrez M.D. Interventional Cardiology HPI Data of Consult Requesting Physician: Ana Reilly MD Admitting Provider: Mansi Giang MD Attending Provider: Ana Reilly MD Primary Care Provider: Kaleb Sky MD Consult Narrative Reason for consult: Thrombectomy of the bilateral PE History of present illness: Ms. Chandra is a 83-year-old female with past medical history of CHF, CAD status post PCI, stent placed in RCA in 2007, CKD stage III, hypertension type 2 diabetes mellitus, IgM monoclonal gammopathy and advanced dementia presented to the ED complaining of generalized weakness, fever and shortness of breath. Due to advanced dementia patient is unable to provide any medical history herself, patient's daughter is at bedside who has provided partial history and remainder of history is obtained from chart reviewing. Per daughter patient was recently hospitalized 05/30 due to sepsis secondary to UTI and was discharged home on antibiotics on 06/01, patient was okay for the first couple days after discharge but then patient had generalized weakness and severe of shortness of breath and daughter said it has progressively worsened over the week which prompted her to bring her to the ED on 06/08. Patient's daughter states that she noted she was very weak and was not eating at home and was complaining about her having severe shortness of breath as well as some soreness in her chest. Although patient had no cough she did have a fever. 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 Woods in 2021 and was found to have 100% occlusion of the distal RCA and 30% stenosis of LAD with ejection fraction of 55%. Per chart review Pt has a intracoronary stent placement in the right coronary artery in 2007. Patient lives with her middle daughter and has a certified ophthalmic technologist that comes to the home to help the patient with meal preps and medications and anything else that the patient may need. Patient is not bedbound and and is able to walk around using a wheelchair and can do most activities independently. Although she has advanced dementia and is unable to recall majority of things but patient is able to recognize family members. Patient's daughter endorses to her compliance on her daily medications. Cardiac Cath done on 08/01/2021 1. Severe coronary atherosclerosis with 100% instent total occlusion of the mid to distal right coronary artery with distal filling of the right coronary artery from collateral from the left coronary system, 20% stenosis in the proximal to mid and 40% stenosis of the mid to distal right coronary artery before the total occlusion and 30% stenosis of the mid left anterior descending coronary artery with tortuous left anterior descending coronary artery as well as left circumflex coronary artery, and normal left main coronary artery. 2. Small segment of inferior basal left ventricular akinesis with overall good left ventricular systolic function with ejection fraction of 55%. 3. Normal right femoral arterial angiography. Echo done on 06/08/2024 LV appears normal wirh EF 55-60%. Diastolic Dysfunction I present. RV appears normal with severely elevated RVSP 80 mmHg. LA mildly dilated. RA mildly dilated. MV has mild MR & MAC AOV is sclerotic with trace-mild AI TV has mod-severe TR. Current Labs and images Vitals: Blood pressure 117/62, heart rate 84, patient is currently saturating above 95% on 5 L oxygen via nasal cannula Labs: WBC 25.9, hemoglobin 9.3, hematocrit 28.4, platelet 445, potassium 3.2, magnesium 1.8, BUN 18, creatinine 1.2, GFR 45, AST 12, ALT <7, total protein 5.6, albumin 3.2 Images: Chest x-ray: Moderate vascular congestion including central vascular engorgement CT chest/abdomen/pelvis: Extensive pulmonary artery emboli, Nodular parenchymal disease consistent with pneumonia in the right mid and lower lung zone, Minimal bilateral pleural disease, Significant nonspecific colitis pattern involving right colon Bilaterally LE venous duplex US : Positive for nonocclusive thrombus right common femoral vein, Positive for nonocclusive thrombus left peroneal vein Chest CTA: Multiple large bilateral pulmonary artery emboli in distal right and left main pulmonary artery segments, Multiple bilateral upper lobe and lower lobe pulmonary artery emboli PMH: Advanced dementia, CHF, CAD status post PCI, CKD stage III, hypertension, type 2 diabetes mellitus, IgM monoclonal gammopathy PSH: L. hip replacement surgery 2017, partial hysterectomy SH: Never smoked, illicit drugs nor alcohol Allergies: multiple antibiotics including erythromycin, penicillins and tetracyclines Home Meds: clopidogrel, hydralazine, lisinopril, verapamil, pravastatin, isosorbide mononitrate, memantine, quetiapine, donepezil, Januvia cc:: cc: Ana Reilly MD Review of Systems Review of Systems Systems Reviewed: All systems reviewed, normal except as documented Exam Vital Signs Temp Pulse Resp BP Pulse Ox O2 Del Method O2 Flow Rate 97.7 F 84 20 117/62 97 Nasal Cannula 2 06/10/24 08:00 06/10/24 08:15 06/10/24 08:00 06/10/24 08:15 06/10/24 08:00 06/10/24 08:00 06/10/24 08:00 Narrative Exam GENERAL: Sleeping, elderly female, Not in acute distress NEURO: no focal neurological deficits HEENT: Atraumatic, Normocephalic. mucous membranes moist. Eyes open, symmetrical, & clear HEART: Normal Heart Sounds LUNGS: Clear to auscultation with no wheezing or crackles. ABDOMEN: soft, non-distended, non-tender, bowel sounds heard, no guarding or rebound tenderness SKIN: No Rash or ecchymoses EXTREMITIES: No edema, tenderness, able to move all 4 extremities, pedal pulses palpated Results Labs 06/10/24 05:05 06/10/24 05:05 Labs: Short CBC 06/10/24 Range/Units 05:05 WBC 25.9 H (3.6-11.0) Thou/mm3 Hgb 9.3 L (12.0-16.0) g/dL Hct 28.4 L (36.0-46.0) % Plt Count 445 H (140-440) Thou/mm3 BMP 06/10/24 05:05 Sodium 137 Potassium 3.2 L Chloride 101 Carbon Dioxide 25.9 BUN 18 Creatinine 1.2 Glucose 111 H Calcium 8.4 Liver Function 06/10/24 Range/Units 05:05 Total Bilirubin 0.4 (0.3-1.2) mg/dL AST 12 (0-34) U/L ALT < 7 L (10-49) U/L Alkaline Phosphatase 70 (46-116) U/L Albumin 3.2 L (3.4-4.8) gm/dL Quality Measures Quality Measures VTE prophylaxis Advance care planning discussed with:: child Medications Home Medications and Allergies Home Medications ?Medication ?Instructions ?Recorded ?Confirmed ?Type verapamil 240 mg tablet,extended 240 mg PO QDAY 06/08/24 History release albuterol sulfate 90 mcg/actuation 2 puff inhalation Q 6H 02/15/21 06/08/24 History aerosol inhaler insulin glargine 100 unit/mL (3 10 unit subcut QPM 08/3106/09/24 History mL) subcutaneous pen (Basaglar KwikPen U-100 Insulin) lisinopril 20 mg tablet 20 mg PO QDAY 02/15/2106/08 History clopidogrel 75 mg tablet 75 mg PO QDAY 08/01/2106/08 History furosemide 40 mg tablet 40 mg PO QAM 08/01/21 History glipizide 5 mg tablet 5 mg PO QDAY 08/01/21 History nitroglycerin 0.4 mg sublingual 0.4 mg buccal [id number] PRN Chest 08/01/21 06/08/24 History tablet Pain potassium chloride 10 mEq 10 meq PO BID 08/01/2108/01 History capsule,extended release pravastatin 40 mg tablet 40 mg PO QDAY 08/01/2106/08 History aspirin 81 mg tablet,delayed 81 mg PO QDAY 06/08/24 History release (Adult Low Dose Aspirin) calcitriol 0.25 mcg capsule 0.25 mcg PO .3 TIMES A WK 06/08/24 06/08/24 History docusate sodium 100 mg capsule 100 mg PO QDAY 06/08/24 06/08/24 History (Colace) hydralazine 25 mg tablet 25 mg PO TID 06/08/24 History isosorbide mononitrate 60 mg 60 mg PO QDAY 06/08/24 History tablet,extended release 24 hr memantine 10 mg tablet 5 mg PO BID 06/08/24 5 History quetiapine 25 mg tablet 25 mg PO HS 06/08/24 5 History sitagliptin phosphate 50 mg tablet 50 mg PO QDAY 06/0806/08/24 History (Januvia) verapamil 240 mg 24 hr 240 mg PO QDAY 06/08/2405/15 History capsule,extended release donepezil 5 mg tablet 5 mg PO .noct 06/09/2406/09 History nitrofurantoin 100 mg PO Q12H urinary tract 06/09/24 06/09/24 History monohydrate/macrocrystals 100 mg infection capsule sulfamethoxazole 800 tab PO BID 06/09/24 History mg-trimethoprim 160 mg tablet Allergies Allergy/AdvReac Type Severity Reaction Status Date / Time erythromycin base Allergy Severe DIFF Verified 05/30/24 11:35 BREATHING latex Allergy Severe RASH AND Verified 05/30/24 11:35 ITCHING Penicillins Allergy Severe ITCHING Verified 05/30/24 11:35 tetracycline Allergy Severe RASH Verified 05/30/24 11:35 Visit Medications Acetaminophen (Acetaminophen 325 Mg Tablet) 650 mg PO Q6H PRN PRN Reason: PAIN SCALE 1-3 (mild Stop: 07/08/24 05:13 Last Admin: 06/09/24 09:52 Dose: 650 mg Acetaminophen (Acetaminophen 325 Mg Tablet) 650 mg PO Q6H PRN PRN Reason: Fever >100.4 Stop: 07/08/24 05:13 Albuterol/Ipratropium (Albuterol/Ipratropium (Duoneb) Rt Fabi 3 Ml Nebu) 3 ml INH Q6HRRT [facility] Stop: 07/08/24 06:59 Last Admin: 06/10/24 07:01 Dose: 3 ml Dextrose (Dextrose 50%-Water Inj 50 Ml Syringe) 25 ml IV Q15MIN PRN PRN Reason: BG 50-70 responsive npo pt Stop: 07/08/24 07:10 Dextrose (Dextrose 50%-Water Inj 50 Ml Syringe) 50 ml IV Q15MIN PRN PRN Reason: BG <50 OR BG <70 & pt unresponsive Stop: 07/08/24 07:10 Enoxaparin Sodium (Enoxaparin Sod Inj 60 Mg/0.6 Ml Syringe) 50 mg SC QDAY [facility] Stop: 06/22/24 08:59 Last Admin: 06/10/24 08:14 Dose: 50 mg Furosemide (Furosemide Inj 10 Mg/Ml 4ml Vial) 40 mg IVP QDAY [facility] Stop: 07/10/24 08:59 Last Admin: 06/10/24 08:15 Dose: 40 mg Glucagon (Glucagon Inj 1 Mg Vial) 1 mg IM Q15MIN PRN PRN Reason: BG <70, and no IV access Insulin Human Lispro (Insulin Lispro (Admelog) 1 Unit/0.01 Ml Unit) 0 unit SC [facility]; Protocol Stop: 07/08/24 07:29 Last Admin: 06/10/24 07:29 Dose: Not Given Memantine (Memantine Hcl 5 Mg Tablet) 5 mg PO BID [facility] Stop: 07/09/24 20:59 Last Admin: 06/10/24 08:14 Dose: 5 mg Ondansetron HCl (Ondansetron Inj 2 Mg/Ml Inj 2 Ml) 4 mg IV Q6H PRN; Protocol PRN Reason: NAUSEA OR VOMITING Stop: 07/08/24 05:13 Last Admin: 06/10/24 08:38 Dose: 4 mg Oxycodone/Acetaminophen (Oxycodone/Apap 5/325 Tablet) 1 tab PO Q6H PRN PRN Reason: PAIN SCALE 4-6 (Moderate Stop: 06/13/24 05:13 Pantoprazole Sodium (Pantoprazole Inj 40 Mg Vial) 40 mg IVP QDAY [facility] Stop: 07/08/24 08:59 Last Admin: 06/10/24 08:14 Dose: 40 mg Pravastatin Sodium (Pravastatin Sodium 10 Mg Tablet) 40 mg PO QDAY [facility] Stop: 07/10/24 08:59 Last Admin: 06/10/24 08:14 Dose: 40 mg Discontinued Medications Acetaminophen (Acetaminophen 325 Mg Tablet) 650 mg PO X1 ONE Stop: 06/07/24 22:47 Last Admin: 06/07/24 22:56 Dose: 650 mg Enoxaparin Sodium (Enoxaparin Sod Inj 100 Mg/Ml Syringe) 54 mg 1 mg/kg (54 mg) SC BID [facility] Stop: 06/22/24 08:59 Furosemide (Furosemide Inj 10 Mg/Ml 4ml Vial) 40 mg IVP BIDD [facility] Stop: 07/08/24 05:59 Last Admin: 06/09/24 05:32 Dose: 40 mg Heparin Sodium (Porcine) (Heparin Sod Inj 5000 Unit/Ml Vial) 4,350 unit 80 unit/kg (4350 unit) IV X1 ONE; Protocol Stop: 06/08/24 05:20 Last Admin: 06/08/24 07:09 Dose: Not Given Heparin Sodium (Porcine) (Heparin Sod Inj 5000 Unit/Ml Vial) 2,200 unit 40 unit/kg (2200 unit) IV X1 ONE; Protocol Stop: 06/08/24 05:20 Last Admin: 06/08/24 07:09 Dose: Not Given Heparin Sodium/Dextrose (Heparin In D5w Ivpb) 25,000 unit in 250 mls @ 9.798 mls/hr IV .Q24H [facility]; Protocol Stop: 06/22/24 05:29 Last Admin: 06/08/24 07:09 Dose: Not Given Cefepime HCl 2 gm/ Sodium (Chloride) 50 mls @ 100 mls/hr IV DAILY [facility] Stop: 06/15/24 07:14 Last Admin: 06/09/24 10:08 Dose: Not Given Cefepime HCl 2 gm/ Sodium (Chloride) 50 mls @ 100 mls/hr IV X1 ONE Stop: 06/08/24 06:14 Last Infusion: 06/08/24 06:45 Dose: Infused Vancomycin/Sodium Chloride (Vancomycin/Ns 1 Gm Ivpb) 200 mls @ 100 mls/hr IV X1 ONE Stop: 06/08/24 07:59 Last Infusion: 06/08/24 07:56 Dose: Infused Vancomycin/Sodium Chloride (Vancomycin/Ns 750 Mg Ivpb) 750 mg in 150 mls @ 120 mls/hr IV Q24H [facility]; Protocol Stop: 06/16/24 09:59 Potassium Chloride (Kcl Ivpb) 10 meq in 100 mls @ 100 mls/hr IV Q1H [facility] Stop: 06/09/24 13:28 Last Admin: 06/09/24 14:59 Dose: 75 mls/hr Pharmacy Consult (Vancomycin Pharmacy To Dose 1 Each Each) 1 each IV QDAY PRN PRN Reason: CONSULT Stop: 07/08/24 08:59 Potassium Chloride (Potassium Chloride 10% 20 Meq/15 Ml Udc) 40 meq PO X1 ONE Stop: 06/09/24 07:53 Last Admin: 06/09/24 10:11 Dose: Not Given Potassium Chloride (Potassium Chloride 20 Meq Tabcr) 40 meq PO X1 ONE Stop: 06/10/24 07:13 Last Admin: 06/10/24 08:14 Dose: 40 meq Sodium Chloride (Sodium Chloride Rt 10% 15 Ml Nebu) 5 ml INH X1 ONE Stop: 06/08/24 05:15 Assessment & Plan Plan Ms. Chandra is a 83-year-old female with past medical history of CHF, CAD status post PCI, CKD stage III, hypertension type 2 diabetes mellitus, IgM monoclonal gammopathy and advanced dementia presented to the ED complaining of generalized weakness, fever and shortness of breath. Cardiology is consulted for possible thrombectomy of the bilateral pleural emboli #Acute hypoxic respiratory failure secondary to #Bilateral pulmonary embolism -on admission Pt had fever, denies cough and generalized weakness as well as chest soreness -Troponin are 0.032 -CT chest/abdomen/pelvis: Extensive pulmonary artery emboli, Nodular parenchymal disease consistent with pneumonia in the right mid and lower lung zone, Minimal bilateral pleural disease, Significant nonspecific colitis pattern involving right colon -Bilaterally LE venous duplex US : Positive for nonocclusive thrombus right common femoral vein, Positive for nonocclusive thrombus left peroneal vein -Chest CTA: Multiple large bilateral pulmonary artery emboli in distal right and left main pulmonary artery segments, Multiple bilateral upper lobe and lower lobe pulmonary artery emboli -Pt is started on Levonox renally dosed. -conntinue anticoagulation #Primary hypertension -Bp is well controlled, home antihypertensive is not resumed # History of CAD, S/p PCI #Questionable history of CHF -Pt has a intracoronary stent placement in the right coronary artery in 2007 -Follows Dr. Urbina outpatient -Although Pt doesn't appear to be fluid overloaded, but per daughter she was complaining for worsening SOB for a week. -Chest x-ray: Moderate vascular congestion including central vascular engorgement Cardiac Cath done on 08/01/2021 1. Severe coronary atherosclerosis with 100% instent total occlusion of the mid to distal right coronary artery with distal filling of the right coronary artery from collateral from the left coronary system, 20% stenosis in the proximal to mid and 40% stenosis of the mid to distal right coronary artery before the total occlusion and 30% stenosis of the mid left anterior descending coronary artery with tortuous left anterior descending coronary artery as well as left circumflex coronary artery, and normal left main coronary artery. 2. Small segment of inferior basal left ventricular akinesis with overall good left ventricular systolic function with ejection fraction of 55%. 3. Normal right femoral arterial angiography. Echo done on 06/08/2024 LV appears normal wirh EF 55-60%. Diastolic Dysfunction I present. RV appears normal with severely elevated RVSP 80 mmHg. LA mildly dilated. RA mildly dilated. MV has mild MR & MAC AOV is sclerotic with trace-mild AI TV has mod-severe TR. -Pt's home med include plavix and statin -Pt is started on lasix #[id number] type 2 diabetes -A1c 7.2 on 06/09/24, Pt is on insulin sliding scale #Advanced dementia #History of IgM monoclonal gammopathy #Mild thrombocytosis -Pt follows [facility] annually, not on any treatment regimen. -Valentine elevated plt 445- likely reactive -Pt is following Dr. Trujillo outpatient and is currently taking memantine, quetiapine, donepezil #Normocytic anemia -Hgb 9.3 Hct 28.3, MCV 90 -no signs of active bleeding noted Assessment and plan discussed with my attending physician Dr. Brenda Rader (PGY-1)- Internal medicine resident Attending Provider Attestation/Addendum I have personally seen and examined the patient separately on the above date of service and discussed the plan of care with the resident. I reviewed the resident Dr. Roberto Rader consultation progress note and agree with the resident findings and plan in the note above and have also edited the documentation to reflect my findings and plan. Jeffery Gutierrez M.D. Interventional Cardiology
--- NOTE | 2024-06-10 14:31 | PC.SS ---
Rounding note: plan is to d/c on Thursday to home.
[2024-06-10] MEDS: INSULIN LISPRO (AdmeLOG) 1 UNIT/0.01 ML UNIT SC ×2 (16:53→20:12)
[2024-06-11] VITALS (11 sets, daily range): BP systolic 103–137; BP diastolic 66–92; PULSE 74–99; RESP 14–21; TEMP 36.6–37.7; O2SAT 95–100; BMI 27.3
[2024-06-11] MEDS: ALBUTEROL/IPRATROPIUM (Duoneb) RT SOL 3 ML NEBU INH ×4 (01:05→19:22)
[2024-06-11 05:42] LABS: Basophils # (Auto) 0.1 Thou/mm3 (0.0-0.2); Basophils % (Auto) 0 % (0-2.5); Eosinophils # (Auto) 0.3 Thou/mm3 (0.0-0.5); Eosinophils % (Auto) 1 % (0-10); Hemoglobin 9.5 g/dL (12.0-16.0); Immature Granulocytes % (Auto) 1 % (0-0); Immature Granulocytes Auto 0.15 Thou/mm3 (0.00-0.00); Lymphocytes # (Auto) 1.1 Thou/mm3 (1.0-4.8); Lymphocytes % (Auto) 6 % (10-50); Mean Corpuscular HGB Conc 31.7 g/dl (31.0-37.0); Mean Corpuscular Hemoglobin 28.5 pg (25.0-35.0); Mean Corpuscular Volume 90 fL (80-100); Monocytes # (Auto) 1.2 Thou/mm3 (0.0-0.8); Monocytes % (Auto) 6 % (0-12); Neutrophils % (Auto) 86 % (37-80); Nucleated Red Blood Cell % 0 /100 WBC (0); Platelet Count 429 Thou/mm3 (140-440); Red Blood Count 3.33 Miln/mm3 (4.00-5.20); White Blood Count 19.8 Thou/mm3 (3.6-11.0)
[2024-06-11 06:26] LABS: Alanine Aminotransferase 11 U/L (10-49); Albumin, Serum 3.2 gm/dL (3.4-4.8); Albumin/Globulin Ratio 1.3 (1.2-2.2); Alkaline Phosphatase 75 U/L (46-116); Anion Gap 9 (7-16); Aspartate Amino Transferase 16 U/L (0-34); BUN/Creatinine Ratio 16 Ratio (12-20); Bilirubin,Total 0.3 mg/dL (0.3-1.2); Blood Urea Nitrogen 23 mg/dL (9-23); Calcium 8.5 mg/dL (8.3-10.6); Calcium (Corrected) 9.1 mg/dL (8.5-10.1); Carbon Dioxide 25.8 mMol/L (20.0-31.0); Chloride 103 mMol/L (98-107); Creatinine (Component) 1.4 mg/dL (0.6-1.3); Estimated Creatinine Clearance 22.6 mL/min (>60); Globulin 2.4 gm/dL (2.3-3.5); Glucose 137 mg/dL (74-106); Osmolality,Calculated 281 (275-295); Phosphorous 2.8 mg/dL (2.4-5.1); Potassium 3.5 mMol/L (3.4-5.1); Sodium 138 mMol/L (136-145); Total Protein 5.6 gm/dL (5.7-8.2); eGFR 38 See Note
[2024-06-11 08:28] LABS: INR 1.1 (0.9-1.3); Partial Thromboplastin Time 26.5 Seconds (22.0-36.0); Prothrombin Time 11.7 Seconds (9.0-12.2)
[2024-06-11] MEDS: PRAVASTATIN SODIUM 10 MG TABLET 40 MG PO (09:31)
[2024-06-11] MEDS: MEMANTINE HCL 5 MG TABLET PO ×2 (09:32→21:34)
[2024-06-11] MEDS: POTASSIUM CHLORIDE 20 mEq TABCR 40 MEQ PO (09:32)
[2024-06-11] MEDS: CLOPIDOGREL BISULFATE 75 MG TABLET PO (09:32)
[2024-06-11] MEDS: FUROSEMIDE INJ 10 MG/ML 4ML VIAL 40 MG IVP (09:33)
[2024-06-11] MEDS: Heparin/D5w 25K 250 ML Ivpb 25,000 UNIT/250 ML BAG 10.374 UNIT IV (09:34)
[2024-06-11] MEDS: PANTOPRAZOLE INJ 40 MG VIAL IVP (09:34)
[2024-06-11] MEDS: HEPARIN SOD INJ 5000 UNIT/ML VIAL 4600 UNIT IV (09:35)
--- NOTE | 2024-06-11 10:42 | ESPR_ITS ---
<Statement entered by Ana Reilly MD - 06/16/24 04:06> I reviewed above note and agree with findings and plans. I have also personally examined the patient with medicine team and went over assessment and plan with medical team including internet developer and resident physician. <Statement entered by Bello Golden MD - 06/11/24 15:23> Patient was seen and examined at the bedside.No acute overnight events were reported. Patient did not had any chest pain or shortness of breath. She reported to have improvement in her breathing difficulty. Risk Lead recommended that patient should be switched from Lovenox to heparin drip and transition to Eliquis tomorrow. No plans for thrombectomy. Continue Plavix for history of CAD post stents. Electrolytes were repleted. Anticipating discharge tomorrow to home with home health. I saw and examined the patient, and I agree with current management stated by Dr Guerrero MD,PGY1. Plan of care was discussed with the attending physician and resident physician. Disclaimer: Despite multiple revisions, due to the dictation software being used, the document bellow may not be free of grammatical errors including phonetic/typographic errors. However, this does not deter from our commitment to providing health care in the patient's best interest in mind. Dr. Maya MD, PGY 2 Documentation for date of: 06/11/24 Subjective Subjective Interval history: Afsaneh Clemente 83-y/o F PMHx CHF, CAD s/p PCI, CKD III, HTN, T2DM, dementia and MGUS admitted on 06/08 for bilateral segemental PE and sepsis 2/2 pneumonia. Doppler showed DVT. Ordered CTA to assess extent of thrombi and consulted cardiology to see if eligible for thrombectomy. Found to have MGUS and seen at cancer center prior and bone biopsy rib showed B-cell proliferation. Discussed with granddaughter possibility of underlying cancer component to blood clots. Dr. Urbina recommends patient to be anticoagulated and follow-up with him outpatient if candidate for thrombectomy. 06/11: Seen and examined at bedside in telemetry. No acute overnight events reported. Per cardiology recommendations, not a candidate for thrombectomy. Lovenox discontinued and heparin drip started with plans to transition to eliquis tomorrow. In addition, recommended to continue Plavix for CAD. Potassium repleted and will likely be able to discharge home tomorrow with home health. Exam Vital Signs Temp Pulse Resp BP Pulse Ox O2 Del Method O2 Flow Rate 98.2 F 85 15 119/66 95 Nasal Cannula 3 06/11/24 08:00 06/11/24 09:33 06/11/24 08:00 06/11/24 09:33 06/11/24 08:00 06/11/24 08:00 06/11/24 08:00 Narrative Exam General: Elderly lady, no acute distress, cooperative HEENT: NCAT, No JVD noted. Mucosa moist. Cardiovascular: Normal S1 and S2. Regular rate and rhythm. Respiratory: Lungs are clear to auscultation bilaterally. Abdomen: Soft, nontender, not distended, normal bowel sounds. Skin: Warm to touch, dry, no rashes noted Musculoskeletal: Able to move all 4 extremities. No pitting edema Neuro: oriented to name. No focal neuro deficits. Objective Labs 06/11/24 05:03 06/11/24 05:03 Labs: Laboratory Results - last 24 hr 06/11/24 05:03 WBC 19.8 H D RBC 3.33 L Hgb 9.5 L Hct 30.0 L MCV 90 MCH 28.5 MCHC 31.7 RDW Std Deviation 50.0 H Plt Count 429 Neut % (Auto) 86 H Lymph % (Auto) 6 L [place] % (Auto) 6 Eos % (Auto) 1 Baso % (Auto) 0 Neut # (Auto) 17.0 H Lymph # (Auto) 1.1 [place] # (Auto) 1.2 H Eos # (Auto) 0.3 Baso # (Auto) 0.1 Immature Gran # (Auto) 0.15 H Absolute Nucleated RBC 0.00 Immature Gran % 1 H Nucleated RBC % 0 PT 11.7 INR 1.1 APTT 26.5 Sodium 138 Potassium 3.5 Chloride 103 Carbon Dioxide 25.8 Anion Gap 9 BUN 23 Creatinine 1.4 H Estim Creat Clear Calc 22.6 L eGFR 38 L BUN/Creatinine Ratio 16 Glucose 137 H Calculated Osmolality 281 Calcium 8.5 Corrected Calcium 9.1 Phosphorus 2.8 Magnesium 2.0 Total Bilirubin 0.3 AST 16 ALT 11 Alkaline Phosphatase 75 Total Protein 5.6 L Albumin 3.2 L Globulin 2.4 Albumin/Globulin Ratio 1.3 Quality Measures Quality Measures VTE prophylaxis Advance care planning discussed with:: patient Assessment & Plan Assessment Current Active Medications: Generic Name Dose Route Start Last Admin Trade Name Marina PRN Reason Stop Dose Admin Acetaminophen 650 mg 06/08/24 05:14 06/09/24 09:52 Acetaminophen 325 Mg Tablet PO 07/08/24 05:13 650 mg Q6H PRN Administration PAIN SCALE 1-3 (mild Acetaminophen 650 mg 06/08/24 05:14 Acetaminophen 325 Mg Tablet PO 07/08/24 05:13 Q6H PRN Fever >100.4 Albuterol/Ipratropium 3 ml 06/08/24 07:00 06/11/24 06:10 Albuterol/Ipratropium (Duoneb) Rt Fabi 3 Ml Nebu INH 07/08/24 06:59 3 ml Q6HRRT SHLYA Administration Clopidogrel Bisulfate 75 mg 06/11/24 09:00 06/11/24 09:32 Clopidogrel Bisulfate 75 Mg Tablet PO 07/11/24 08:59 75 mg QDAY SHYLA Administration Dextrose 25 ml 06/08/24 07:11 Dextrose 50%-Water Inj 50 Ml Syringe IV 07/08/24 07:10 Q15MIN PRN BG 50-70 responsive npo pt Dextrose 50 ml 06/08/24 07:11 Dextrose 50%-Water Inj 50 Ml Syringe IV 07/08/24 07:10 Q15MIN PRN BG <50 OR BG <70 & pt unresponsive Furosemide 40 mg 06/10/24 09:00 06/11/24 09:33 Furosemide Inj 10 Mg/Ml 4ml Vial IVP 07/10/24 08:59 40 mg QDAY SHYLA Administration Glucagon 1 mg 06/08/24 07:11 Glucagon Inj 1 Mg Vial IM Q15MIN PRN BG <70, and no IV access Heparin Sodium/Dextrose 25,000 unit in 250 mls @ 10.374 mls/hr 06/11/24 08:45 06/11/24 09:34 Heparin In D5w Ivpb IV 06/25/24 08:44 18 units/kg/hr .Q24H SHYLA 10.374 mls/hr Administration Protocol 18 UNITS/KG/HR Insulin Human Lispro 0 unit 06/08/24 07:30 06/11/24 07:24 Insulin Lispro (Admelog) 1 Unit/0.01 Ml Unit SC 07/08/24 07:29 Not Given ACHS SHYLA Protocol Memantine 5 mg 06/09/24 21:00 06/11/24 09:32 Memantine Hcl 5 Mg Tablet PO 07/09/24 20:59 5 mg BID SHYLA Administration Ondansetron HCl 4 mg 06/08/24 05:14 06/10/24 08:38 Ondansetron Inj 2 Mg/Ml Inj 2 Ml IV 07/08/24 05:13 4 mg Q6H PRN Administration NAUSEA OR VOMITING Protocol Oxycodone/Acetaminophen 1 tab 06/08/24 05:14 Oxycodone/Apap 5/325 Tablet PO 06/13/24 05:13 Q6H PRN PAIN SCALE 4-6 (Moderate Pantoprazole Sodium 40 mg 06/08/24 09:00 06/11/24 09:34 Pantoprazole Inj 40 Mg Vial IVP 07/08/24 08:59 40 mg QDAY SHYLA Administration Pravastatin Sodium 40 mg 06/10/24 09:00 06/11/24 09:31 Pravastatin Sodium 10 Mg Tablet PO 07/10/24 08:59 40 mg QDAY SHYLA Administration Plan Afsaneh Clemente 83-y/o F PMHx CHF, CAD s/p PCI, CKD III, HTN, T2DM, dementia and MGUS admitted on 06/08 for bilateral segemental PE and sepsis 2/2 pneumonia. Doppler showed DVT. Ordered CTA to assess extent of thrombi and consulted cardiology to see if eligible for thrombectomy. Found to have MGUS and seen at cancer center prior and bone biopsy rib showed B-cell proliferation. Discussed with granddaughter possibility of underlying cancer component to blood clots. Dr. Urbina recommends patient to be anticoagulated and follow-up with him outpatient if candidate for thrombectomy. #AHRF 2/2 acute pulmonary embolism with RH strain CTA: bilateral segmental PE. Initial concern for pneumonia given fever, leukocytosis and empirically started on IV antibiotics that were discontinued (06/08-06/09). COVID and flu (-). US of lower extremities: nonocclusive DVT in R common femoral and L peroneal veins Echo RSVP 80 suggestive of right heart strain Lovenox DC'd 06/11 ? Cardiology consulted, appreciate recommendations ? Heparin drip ? Endarectomy unavailable at this time ? Transition to oral anticoagulation on discharge ? Follow up with arcade game technician Dr. Urbina outpatient ? Follow up with Cancer [facility] #[facility], secondary to diuretic (Lasix) Cr 1.2 -> 1.4 while on Lasix 40 mg IV daily (previously BID) ? Continue to monitor #Electrolyte Imbalances ? Replete for K > 4, Mg > 2 #MGUS, IgM type Worked up outpatient at Cancer Center and diagnosed with MGUS in October 2023. Path report for biopsy of rib lesion at the time showed B cell proliferation. ? Follow-up outpatient for clots and MGUS #Primary hypertension ? BP stable while in house, will hold off on home antihypertensives ? Restart rest of home meds as tolerated #CAD, s/p PCI #HFpEF (EF 55-60%, 06/08) Echo 06/08: EF 55 to 60%, grade 1 diastolic dysfunction. RVSP 80 mmHg, moderate to severe TR. ? Clopidogrel 75 mg p.o. daily ? Pravastatin 40 mg p.o. daily ? Lasix 40 IV decreased from BID to daily #CKD stage III #Normocytic anemia, chronic ? Avoid nephrotoxic agents and renally dose medications #T2DM, A1c 7.2% ? SSI #Dementia ? Restart home [facility] management: Disposition: Heparin drip for PE to be transitioned to Eliquis tomorrow, plan to DC home tomorrow with home health Fluids: None Diet: Cardiac with Ensure Plus Lines: Peripheral IV DVT prophylaxis: Heparin drip GI prophylaxis: Pantoprazole 40 mg IV CODE STATUS: full code ----- Plan discussed with attending physician Dr. Reilly and senior resident physician Dr. Maya Masters MD PGY-1 Internal Medicine
[2024-06-11] MEDS: INSULIN LISPRO (AdmeLOG) 1 UNIT/0.01 ML UNIT SC ×2 (11:35→21:35)
--- NOTE | 2024-06-11 12:20 | PC.PT ---
Per RN, patient has a DVT and was started on heparin today 06/11/24. For safety patient needs to be on heparin for 24 hours prior to PT treatment.
--- NOTE | 2024-06-11 16:28 | PD.RESPRO ---
Documentation for date of: 06/11/24 Subjective Subjective Interval history: The patient is evaluated at the bedside, noted sleeping comfortably in bed on 3 L nasal cannula oxygen, daughter was present at the bedside, questions and concerns were answered. Transitioned to heparin drip from Lovenox, patient can be transition to p.o. anticoagulation on discharge. CT showed bilateral pulmonary embolism, larger thrombi right pulmonary trunk closer to bifurcation of pulmonary arteries, also noted small filling defect in the left pulmonary artery branches. Continue anticaogulation. Also recommend continuing Plavix and statin for coronary artery disease. Exam Vital Signs Temp Pulse Resp BP Pulse Ox O2 Del Method O2 Flow Rate 98.5 F 81 21 H 129/92 H 100 Nasal Cannula 3 06/11/24 16:00 06/11/24 16:00 06/11/24 16:00 06/11/24 16:00 06/11/24 16:00 06/11/24 16:00 06/11/24 16:00 Narrative Exam General: Elderly lady, no acute distress, cooperative HEENT: NCAT, No JVD noted. Mucosa moist. Cardiovascular: Normal S1 and S2. Regular rate and rhythm. Respiratory: Lungs are clear to auscultation bilaterally. Abdomen: Soft, nontender, not distended, normal bowel sounds. Skin: Warm to touch, dry, no rashes noted Musculoskeletal: Able to move all 4 extremities. No pitting edema Neuro: oriented to name. No focal neuro deficits. Objective Labs 06/11/24 05:03 06/11/24 05:03 Labs: Laboratory Results - last 24 hr 06/11/24 05:03 WBC 19.8 H D RBC 3.33 L Hgb 9.5 L Hct 30.0 L MCV 90 MCH 28.5 MCHC 31.7 RDW Std Deviation 50.0 H Plt Count 429 Neut % (Auto) 86 H Lymph % (Auto) 6 L [place] % (Auto) 6 Eos % (Auto) 1 Baso % (Auto) 0 Neut # (Auto) 17.0 H Lymph # (Auto) 1.1 [place] # (Auto) 1.2 H Eos # (Auto) 0.3 Baso # (Auto) 0.1 Immature Gran # (Auto) 0.15 H Absolute Nucleated RBC 0.00 Immature Gran % 1 H Nucleated RBC % 0 PT 11.7 INR 1.1 APTT 26.5 Sodium 138 Potassium 3.5 Chloride 103 Carbon Dioxide 25.8 Anion Gap 9 BUN 23 Creatinine 1.4 H Estim Creat Clear Calc 22.6 L eGFR 38 L BUN/Creatinine Ratio 16 Glucose 137 H Calculated Osmolality 281 Calcium 8.5 Corrected Calcium 9.1 Phosphorus 2.8 Magnesium 2.0 Total Bilirubin 0.3 AST 16 ALT 11 Alkaline Phosphatase 75 Total Protein 5.6 L Albumin 3.2 L Globulin 2.4 Albumin/Globulin Ratio 1.3 Quality Measures Quality Measures VTE prophylaxis Advance care planning discussed with:: patient Assessment & Plan Assessment Current Active Medications: Generic Name Dose Route Start Last Admin Trade Name Freq PRN Reason Stop Dose Admin Acetaminophen 650 mg 06/08/24 05:14 06/09/24 09:52 Acetaminophen 325 Mg Tablet PO 07/08/24 05:13 650 mg Q6H PRN Administration PAIN SCALE 1-3 (mild Acetaminophen 650 mg 06/08/24 05:14 Acetaminophen 325 Mg Tablet PO 07/08/24 05:13 Q6H PRN Fever >100.4 Albuterol/Ipratropium 3 ml 06/08/24 07:00 06/11/24 13:25 Albuterol/Ipratropium (Duoneb) Rt Fabi 3 Ml Nebu INH 07/08/24 06:59 3 ml Q6HRRT SHYLA Administration Clopidogrel Bisulfate 75 mg 06/11/24 09:00 06/11/24 09:32 Clopidogrel Bisulfate 75 Mg Tablet PO 07/11/24 08:59 75 mg QDAY SHYLA Administration Dextrose 25 ml 06/08/24 07:11 Dextrose 50%-Water Inj 50 Ml Syringe IV 07/08/24 07:10 Q15MIN PRN BG 50-70 responsive npo pt Dextrose 50 ml 06/08/24 07:11 Dextrose 50%-Water Inj 50 Ml Syringe IV 07/08/24 07:10 Q15MIN PRN BG <50 OR BG <70 & pt unresponsive Furosemide 40 mg 06/10/24 09:00 06/11/24 09:33 Furosemide Inj 10 Mg/Ml 4ml Vial IVP 07/10/24 08:59 40 mg QDAY SHYLA Administration Glucagon 1 mg 06/08/24 07:11 Glucagon Inj 1 Mg Vial IM Q15MIN PRN BG <70, and no IV access Heparin Sodium/Dextrose 25,000 unit in 250 mls @ 10.374 mls/hr 06/11/24 08:45 06/11/24 09:34 Heparin In D5w Ivpb IV 06/25/24 08:44 18 units/kg/hr .Q24H SHYLA 10.374 mls/hr Administration Protocol 18 UNITS/KG/HR Insulin Human Lispro 0 unit 06/08/24 07:30 06/11/24 11:35 Insulin Lispro (Admelog) 1 Unit/0.01 Ml Unit SC 07/08/24 07:29 2 unit ACHS SHYLA Administration Protocol Memantine 5 mg 06/09/24 21:00 06/11/24 09:32 Memantine Hcl 5 Mg Tablet PO 07/09/24 20:59 5 mg BID SHYLA Administration Ondansetron HCl 4 mg 06/08/24 05:14 06/10/24 08:38 Ondansetron Inj 2 Mg/Ml Inj 2 Ml IV 07/08/24 05:13 4 mg Q6H PRN Administration NAUSEA OR VOMITING Protocol Oxycodone/Acetaminophen 1 tab 06/08/24 05:14 Oxycodone/Apap 5/325 Tablet PO 06/13/24 05:13 Q6H PRN PAIN SCALE 4-6 (Moderate Pantoprazole Sodium 40 mg 06/08/24 09:00 06/11/24 09:34 Pantoprazole Inj 40 Mg Vial IVP 07/08/24 08:59 40 mg QDAY SHYLA Administration Pravastatin Sodium 40 mg 06/10/24 09:00 06/11/24 09:31 Pravastatin Sodium 10 Mg Tablet PO 07/10/24 08:59 40 mg QDAY SHYLA Administration Plan A 83-year-old female with a past medical history of CAD s/p PCI to RCA in 2007, last cath in 2021 with 100% occlusion of the distal RCA stent, mild disease of the LAD, LCx and RCA, diastolic congestive heart failure or HFpEF, essential hypertension, type 2 diabetes mellitus, angina and monoclonal gammopathy presented to the emergency department on 06/07/2024 for further evaluation of generalized weakness, anemia fever as well as shortness of breath. Patient was admitted to the hospital for possible working diagnosis of pneumonia and then a CTA chest was performed on 06/08/2024 which showed large bilateral pulmonary emboli in distal right, left pulmonary artery segments, multiple bilateral upper lobe lung lower lobey emboli. Bilateral duplex was also positive for nonocclusive thrombus in the right common femoral vein as well as nonocclusive thrombus in left peroneal vein, bases bilateral pneumonia, Cardiology consulted today on 06/10/2024 for further evaluation of pulmonary embolism and to assist in potential for possible thrombectomy. Assessment and plan: 1. Acute hypoxic respiratory failure is mostly secondary to bilateral pulmonary embolism 2. Acute bilateral PE-right greater than left 3. Acute bilateral lower extremity DVT 4. Bibasilar pneumonia 5. 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 8. Essential hypertension 9. Type 2 diabetes mellitus 10. Anemia 11. IgM monoclonal gammopathy 12. Mild cognitive insufficiency. Reviewed the CTA of the chest done which showed significant right coronary artery just before the bifurcation involving the lower lobe and upper lobe and right middle lobe. Left main PA has mild thrombus or clot extending into the left lower lobe and upper lobe but only partially. Duplex positive for bilateral lower extremity DVT including the left side below knee left peroneal as well as right peroneal veins and rest of the veins were clear. Patient did present to the hospital on 06/07/2024 night and was admitted on 06/08/2024. Patient has been doing well for the last couple of days and has been started on Lovenox by the primary team. Oxygen requirements have been decreasing and now is only on 3 L/min. Commend to continue anticoagulation and switch Lovenox to heparin drip and eventually can be changed to Eliquis DVT/PE dose. Patient does have right heart strain with elevated BNP at 1140, troponin was negative and patient is not hemodynamically unstable -given the above findings patient is not a candidate for urgent catheter based therapies including any thrombolysis or thrombectomy. Also RVSP elevated at 80 mmHg. Continue anticoagulation as noted above and will plan to do procedures only patient is in stable and is hemodynamically unstable her oxygen requirements are increasing. Echocardiogram reviewed and showed normal LV and RV function. LVEF is 55 to 60%. Diastolic dysfunction stage I. RVSP is also severely elevated at 80 mmHg. Mild biatrial dilatation. Mild aortic valve sclerosis without stenosis. Moderate to severe TR. Mild MR mild MAC. Unclear etiology of the PE at the present point of time and will need to rule out all other causes including malignancy versus prolonged immobility versus hypercoagulable states. Regarding her CAD continue with Plavix for now and statin. Patient denies any Chest pain chest pressure and also he troponins were negative and the EKG did not show any kind of acute ST-T changes. Cardiac echo from 2021 were reviewed and showed 100% in-stent occlusion of the distal RCA with collaterals from left to right and the mild disease of rest of RCA as well as LAD. Requested control of blood pressure as well as diabetes mellitus. Treatment of pneumonia as per primary team Management of rest of the medical conditions as per primary team and other consultants. Thank you for the consult and allowing us to participate in the care of the patient. Cardiology will continue to follow. Plan of care discussed with Calender Operator Dr Brenda Barrera pgy 2 Attending Provider Attestation/Addendum I have personally seen and examined the patient separately on the above date of service and discussed the plan of care with the resident. I reviewed the resident Dr. Claudia Barrera consultation progress note and agree with the resident findings and plan in the note above and have also edited the documentation to reflect my findings and plan. Jeffery Gutierrez M.D. Interventional Cardiology
[2024-06-11] MEDS: HEPARIN SOD INJ 5000 UNIT/ML VIAL 4600 UNIT IVP (21:47)
[2024-06-12] VITALS (12 sets, daily range): BP systolic 100–115; BP diastolic 58–67; PULSE 66–90; RESP 12–25; TEMP 36.3–36.9; O2SAT 93–99; BMI 26.2
[2024-06-12] MEDS: ALBUTEROL/IPRATROPIUM (Duoneb) RT SOL 3 ML NEBU INH ×2 (00:05→12:00)
[2024-06-12 05:54] LABS: Basophils # (Auto) 0.1 Thou/mm3 (0.0-0.2); Basophils % (Auto) 1 % (0-2.5); Eosinophils # (Auto) 0.3 Thou/mm3 (0.0-0.5); Eosinophils % (Auto) 2 % (0-10); Hematocrit 28.9 % (36.0-46.0); Hemoglobin 9.3 g/dL (12.0-16.0); Immature Granulocytes % (Auto) 1 % (0-0); Lymphocytes # (Auto) 1.3 Thou/mm3 (1.0-4.8); Lymphocytes % (Auto) 9 % (10-50); Mean Corpuscular HGB Conc 32.2 g/dl (31.0-37.0); Mean Corpuscular Hemoglobin 28.9 pg (25.0-35.0); Mean Corpuscular Volume 90 fL (80-100); Monocytes % (Auto) 7 % (0-12); Neutrophils # (Auto) 12.7 Thou/mm3 (1.8-7.7); Neutrophils % (Auto) 82 % (37-80); Nucleated Red Blood Cell % 0 /100 WBC (0); Platelet Count 484 Thou/mm3 (140-440); RDW Standard Deviation 49.5 fL (36.4-46.3); Red Blood Count 3.22 Miln/mm3 (4.00-5.20); White Blood Count 15.5 Thou/mm3 (3.6-11.0)
[2024-06-12 05:57] LABS: Alanine Aminotransferase 10 U/L (10-49); Albumin, Serum 3.1 gm/dL (3.4-4.8); Albumin/Globulin Ratio 1.3 (1.2-2.2); Alkaline Phosphatase 64 U/L (46-116); Anion Gap 9 (7-16); Aspartate Amino Transferase 13 U/L (0-34); BUN/Creatinine Ratio 17 Ratio (12-20); Bilirubin,Total 0.3 mg/dL (0.3-1.2); Blood Urea Nitrogen 24 mg/dL (9-23); Calcium 8.3 mg/dL (8.3-10.6); Carbon Dioxide 26.5 mMol/L (20.0-31.0); Chloride 102 mMol/L (98-107); Creatinine (Component) 1.4 mg/dL (0.6-1.3); Estimated Creatinine Clearance 22.6 mL/min (>60); Globulin 2.4 gm/dL (2.3-3.5); Glucose 144 mg/dL (74-106); Magnesium 1.8 mg/dL (1.6-2.6); Osmolality,Calculated 280 (275-295); Phosphorous 2.4 mg/dL (2.4-5.1); Potassium 3.5 mMol/L (3.4-5.1); Sodium 137 mMol/L (136-145); Total Protein 5.5 gm/dL (5.7-8.2); eGFR 38 See Note
[2024-06-12 06:39] LABS: INR 1.1 (0.9-1.3); Partial Thromboplastin Time 57.8 Seconds (22.0-36.0); Prothrombin Time 12.2 Seconds (9.0-12.2)
[2024-06-12] MEDS: INSULIN LISPRO (AdmeLOG) 1 UNIT/0.01 ML UNIT SC ×2 (07:32→16:25)
--- NOTE | 2024-06-12 07:44 | ESDS_ITS ---
<Statement entered by Ana Reilly MD - 06/18/24 21:47> I reviewed above note and agree with findings and plans. I have also personally examined the patient with medicine team and went over assessment and plan with medical team including risk management intern and resident physician. Planned Discharge Date 06/12/24 DS: Providers Provider Date of admission: 06/08/24 05:14 Primary care physician: Kaleb Sky MD Admitting Provider: Mansi Giang MD Attending Provider on Admission: Ana Reilly MD Consults: 06/08/24 05:19 Consult to Cardiology Stat Comment: Consulting Provider: Jose David Urbina 06/09/24 09:53 Referral Physical Therapy Routine Comment: Physician Instructions: 06/10/24 09:13 Consult to Cardiology Routine Comment: Bilateral PE, potential thrombectomy Consulting Provider: Jeffery Gutierrez Attending Provider on DC: Gaby Whitfield MD Discharging Provider: Gaby Whitfield MD DS: Diagnosis Problem List Completed Was Problem List Reviewed/Reconciled?: Yes Hospital Course Hospital Course Hospital course: Patient was an 83-year-old female with CAD s/p PCI, CKD 3a, HTN, T2DM, dementia, MGUS and HFpEF (EF 55-60%) who presented with weakness, fever and SOB. She was found to have bilateral PE, DVT and concern for pneumonia, as seen on CT. Patient was started on IV abx, anticoagulation, with Lovenox and cardiology was consulted for further recommendations. Cardiology deemed patient not a candidate for thrombectomy. Cardiology recommended Eliquis for patient, and to replace Plavix with aspirin 81 mg. Additionally, patient was found to have an IHSAN on labs, with creatinine improving to 1.1 and then mildly elevating to 1.4. She is tolerating diet, and her IV Lasix was changed to p.o. Patient was advised to repeat renal panel in 1 week. On ambulatory SpO2 testing, patient desaturated <90% while wearing 1 L nasal cannula, therefore she was discharged on oxygen with home health PT, as daughter refused SNF. Patient was deemed stable for discharge home, and return precautions provided. #Acute hypoxic respiratory failure, secondary to #Bilateral pulmonary embolism, with right heart strain #DVT, right common femoral vein & left peroneal vein #Likely HAP with concern for GNR PNA due to recent hospitalization #IHSAN on CKD 3a #Chronic normocytic anemia, likely secondary to CKD #CAD s/p PCI #HFpEF (EF 55-60%) #HTN #T2DM #Dementia #MGUS Patient seen and care discussed with my attending Dr. Reilly. Gaby Whitfield MD PGY-3 Status at Discharge Cognitive/behavioral status at discharge: AAOx1 Time Spent with Patient Time attestation: Total time spent providing and/or coordinating discharge services: Time spent: Greater than 30 minutes Exam Vital Signs Temp Pulse Resp BP Pulse Ox O2 Del Method O2 Flow Rate 97.3 F 77 16 100/58 L 95 Nasal Cannula 1 06/12/24 04:00 06/12/24 06:33 06/12/24 06:33 06/12/24 04:00 06/12/24 06:33 06/12/24 04:00 06/12/24 06:33 Narrative Exam Gen: Elderly lady, pleasant to speak with, AAOx1 (self) HEENT: NCAT, PERRLA, EOMI, MMM, no JVD CVS: normal S1, S2. RRR. No MRG Resp: CTA B/L. No rhonchi, rales, crackles or wheezing Abd: soft, non-tender, non-distended. BS+ in all 4 quadrants MSK: Good ROM in BUE & BLE. RLE appears larger > LLE; no pitting edema noted Neuro: No focal deficits appreciated Discharge Plan Plan Patient Disposition: Home w/HOME HEALTH Patient condition on transfer: Stable Care Plan Goals: - Continue Eliquis twice daily as prescribed (starter pack) until able to see cnc field service engineer outpatient - Follow-up with PCP within 1 week of discharge - Follow-up with outpatient cnc field service engineer within 1-2 weeks of discharge - Your plavix was discontinued. Please take 81mg aspirin daily, along with eliquis as prescribed above - Discontinued antihypertensives due to syncopal episode and stable BP. Advised to monitor BP and take log to PCP - Renal panel ordered 1 week from now to follow up IHSAN - [facility] to [facility] with [facility] regarding MGUS (Monoclonal Gammopathy of Undetermined Significance) given PE/DVT - Return to ED if symptoms worsen or recur Prescriptions/Referrals Prescriptions/Med Rec: New Eliquis DVT-PE Treat 30D Start 5 mg (74 tabs) tablets,dose pack 5 mg PO BID Qty: 74 0RF levalbuterol tartrate 45 mcg/actuation HFA aerosol inhaler 2 inh inhalation Q6H PRN (Reason: shortness of breath or wheezing) Qty: 15 0RF aspirin [Vish Chewable Aspirin] 81 mg tablet,chewable 81 mg PO QDAY 30 Days Qty: 30 2RF Continued insulin glargine [Basaglar KwikPen U-100 Insulin] 100 unit/mL (3 mL) Insulin Pen 10 unit SUBCUT QPM potassium chloride 10 mEq Capsule, Extended Release 10 meq PO BID pravastatin 40 mg Tablet 40 mg PO QDAY nitroglycerin 0.4 mg Tablet, Sublingual 0.4 mg BUCCAL [id number] PRN (Reason: Chest Pain) quetiapine 25 mg tablet 25 mg PO HS Patient Comments: TAKE 1 TABLET BY MOUTH EVERY DAY AT NIGHT calcitriol 0.25 mcg capsule 0.25 mcg PO .3 TIMES A WK Patient Comments: TAKE 1 CAPSULE BY MOUTH 3 TIMES WEEKLY memantine 10 mg tablet 5 mg PO BID Patient Comments: TAKE 1 TABLET BY MOUTH EVERY DAY AT NIGHT Januvia 50 mg tablet 50 mg PO QDAY docusate sodium [Colace] 100 mg capsule 100 mg PO QDAY donepezil 5 mg tablet 5 mg PO .noct Patient Comments: TAKE 1 TABLET BY MOUTH EVERY DAY AT NIGHT Held furosemide 40 mg Tablet 40 mg PO QAM Hold Instructions: Resume on 06/26/24. f/u with PCP Discontinued verapamil 240 mg Tablet Extended Release 240 mg PO QDAY lisinopril 20 mg tablet 20 mg PO QDAY albuterol sulfate 90 mcg/actuation HFA aerosol inhaler 2 puff INHALATION Q6H clopidogrel 75 mg Tablet 75 mg PO QDAY glipizide 5 mg Tablet 5 mg PO QDAY dicyclomine 20 mg tablet 20 mg PO QID PRN (Reason: abdominal pain) Qty: 14 0RF isosorbide mononitrate 60 mg tablet extended release 24 hr 60 mg PO QDAY Patient Comments: TAKE 1 TABLET BY MOUTH EVERY DAY hydralazine 25 mg tablet 25 mg PO TID Patient Comments: TAKE 1 TABLET BY MOUTH THREE TIMES A DAY verapamil 240 mg capsule,ext rel. pellets 24 hr 240 mg PO QDAY Patient Comments: TAKE 1 CAPSULE BY MOUTH EVERY DAY aspirin [Adult Low Dose Aspirin] 81 mg tablet,delayed release (DR/EC) 81 mg PO QDAY nitrofurantoin monohyd/m-cryst 100 mg capsule 100 mg PO Q12H Patient Comments: TAKE 1 CAPSULE EVERY 12HRS FOR URINARY TRACT INFECTION FOR 7 DAYS MUST ADMINISTER WITH A MEAL/FOOD sulfamethoxazole-trimethoprim 800-160 mg tablet PO BID Patient Comments: TAKE 1 TABLET BY MOUTH TWICE A DAY Referrals: Kaleb Sky MD [Primary Care Provider] - Outpatient Orders (i.e. Home Health, Labs, Imaging): Renal Function Panel (Routine) Timeframe: 1 Week Facility: [facility] - Location: Outpatient Lab ([facility]B) Ordered By: Gaby Whitfield Patient/Caregiver Discharge Instructions Discharge Activity: as per physical therapy Education Materials: Embolism Pulmonary Dc, ED Deep Vein Thrombosis (DVT) Print Language: Bolivian Stand Alone Forms: Greta Award Info., Patient Portal Info Letter Discharge Order Discharge Orders: Discharge (Routine); Ordered 06/12/24 Ordered By: Gaby Whitfield Quality Discharge Quality Measures VTE therapy
[2024-06-12] MEDS: Magnesium Sulfate 2 GM Ivpb 2 GM/50 ML BAG IV (08:56)
[2024-06-12] MEDS: PANTOPRAZOLE INJ 40 MG VIAL IVP (08:57)
[2024-06-12] MEDS: POTASSIUM CHLORIDE 20 mEq TABCR 40 MEQ PO (08:57)
[2024-06-12] MEDS: CLOPIDOGREL BISULFATE 75 MG TABLET PO (08:58)
[2024-06-12] MEDS: APIXABAN 2.5 MG TABLET 10 MG PO (08:58)
[2024-06-12] MEDS: Furosemide 40 MG TABLET PO (08:58)
[2024-06-12] MEDS: PRAVASTATIN SODIUM 10 MG TABLET 40 MG PO (08:58)
[2024-06-12] MEDS: MEMANTINE HCL 5 MG TABLET PO (08:58)
--- NOTE | 2024-06-12 09:39 | PD.RESPRO ---
Documentation for date of: 06/12/24 Subjective Subjective Interval history: The patient is evaluated at the bedside, sleeping comfortably on 3L nasal cannula oxygen, daughter was present at the bedside, questions and concerns were answered. Currently on p.o. eliquis for anticoagulation, patient is hemodynamically stable. Continue anticaogulation. Also recommend continuing Aspirin and statin for coronary artery disease, discontinue Plavix on discharge. Patient pending home oxygen to be arranged. Exam Vital Signs Temp Pulse Resp BP Pulse Ox O2 Del Method O2 Flow Rate 98.4 F 83 21 H 115/67 94 L Nasal Cannula 1 06/12/24 08:00 06/12/24 08:58 06/12/24 08:00 06/12/24 08:58 06/12/24 08:00 06/12/24 08:00 06/12/24 08:00 Narrative Exam General: Elderly lady, no acute distress, cooperative HEENT: NCAT, No JVD noted. Mucosa moist. Cardiovascular: Normal S1 and S2. Regular rate and rhythm. Respiratory: Lungs are clear to auscultation bilaterally. Abdomen: Soft, nontender, not distended, normal bowel sounds. Skin: Warm to touch, dry, no rashes noted Musculoskeletal: Able to move all 4 extremities. No pitting edema Neuro: oriented to name. No focal neuro deficits. Objective Labs 06/12/24 04:08 06/12/24 04:08 Labs: Laboratory Results - last 24 hr 06/11/24 06/12/24 19:42 04:08 WBC 15.5 H RBC 3.22 L Hgb 9.3 L Hct 28.9 L MCV 90 MCH 28.9 MCHC 32.2 RDW Std Deviation 49.5 H Plt Count 484 H D Neut % (Auto) 82 H Lymph % (Auto) 9 L [place] % (Auto) 7 Eos % (Auto) 2 Baso % (Auto) 1 Neut # (Auto) 12.7 H Lymph # (Auto) 1.3 [place] # (Auto) 1.0 H Eos # (Auto) 0.3 Baso # (Auto) 0.1 Immature Gran # (Auto) 0.10 H Absolute Nucleated RBC 0.00 Immature Gran % 1 H Nucleated RBC % 0 PT 12.2 INR 1.1 APTT 30.0 57.8 H D Sodium 137 Potassium 3.5 Chloride 102 Carbon Dioxide 26.5 Anion Gap 9 BUN 24 H Creatinine 1.4 H Estim Creat Clear Calc 22.6 L eGFR 38 L BUN/Creatinine Ratio 17 Glucose 144 H Calculated Osmolality 280 Calcium 8.3 Corrected Calcium 9.0 Phosphorus 2.4 Magnesium 1.8 Total Bilirubin 0.3 AST 13 ALT 10 Alkaline Phosphatase 64 Total Protein 5.5 L Albumin 3.1 L Globulin 2.4 Albumin/Globulin Ratio 1.3 Quality Measures Quality Measures VTE prophylaxis Advance care planning discussed with:: patient Assessment & Plan Assessment Current Active Medications: Generic Name Dose Route Start Last Admin Trade Name Freq PRN Reason Stop Dose Admin Acetaminophen 650 mg 06/08/24 05:14 06/09/24 09:52 Acetaminophen 325 Mg Tablet PO 07/08/24 05:13 650 mg Q6H PRN Administration PAIN SCALE 1-3 (mild Acetaminophen 650 mg 06/08/24 05:14 Acetaminophen 325 Mg Tablet PO 07/08/24 05:13 Q6H PRN Fever >100.4 Albuterol/Ipratropium 3 ml 06/08/24 07:00 06/12/24 06:32 Albuterol/Ipratropium (Duoneb) Rt Fabi 3 Ml Nebu INH 07/08/24 06:59 Not Given Q6HRRT SHYLA Apixaban 10 mg 06/12/24 09:00 06/12/24 08:58 Apixaban 2.5 Mg Tablet PO 06/18/24 21:01 10 mg BID SHYLA Administration Protocol Clopidogrel Bisulfate 75 mg 06/11/24 09:00 06/12/24 08:58 Clopidogrel Bisulfate 75 Mg Tablet PO 07/11/24 08:59 75 mg QDAY SHYLA Administration Dextrose 25 ml 06/08/24 07:11 Dextrose 50%-Water Inj 50 Ml Syringe IV 07/08/24 07:10 Q15MIN PRN BG 50-70 responsive npo pt Dextrose 50 ml 06/08/24 07:11 Dextrose 50%-Water Inj 50 Ml Syringe IV 07/08/24 07:10 Q15MIN PRN BG <50 OR BG <70 & pt unresponsive Furosemide 40 mg 06/12/24 09:00 06/12/24 08:58 Furosemide 40 Mg Tablet PO 07/12/24 08:59 40 mg QDAY SHYLA Administration Glucagon 1 mg 06/08/24 07:11 Glucagon Inj 1 Mg Vial IM Q15MIN PRN BG <70, and no IV access Insulin Human Lispro 0 unit 06/08/24 07:30 06/12/24 07:32 Insulin Lispro (Admelog) 1 Unit/0.01 Ml Unit SC 07/08/24 07:29 1 unit ACHS SHYLA Administration Protocol Memantine 5 mg 06/09/24 21:00 06/12/24 08:58 Memantine Hcl 5 Mg Tablet PO 07/09/24 20:59 5 mg BID SHYLA Administration Ondansetron HCl 4 mg 06/08/24 05:14 06/10/24 08:38 Ondansetron Inj 2 Mg/Ml Inj 2 Ml IV 07/08/24 05:13 4 mg Q6H PRN Administration NAUSEA OR VOMITING Protocol Oxycodone/Acetaminophen 1 tab 06/08/24 05:14 Oxycodone/Apap 5/325 Tablet PO 06/13/24 05:13 Q6H PRN PAIN SCALE 4-6 (Moderate Pantoprazole Sodium 40 mg 06/08/24 09:00 06/12/24 08:57 Pantoprazole Inj 40 Mg Vial IVP 07/08/24 08:59 40 mg QDAY SHYLA Administration Pravastatin Sodium 40 mg 06/10/24 09:00 06/12/24 08:58 Pravastatin Sodium 10 Mg Tablet PO 07/10/24 08:59 40 mg QDAY SHYLA Administration Plan A 83-year-old female with a past medical history of CAD s/p PCI to RCA in 2007, last cath in 2021 with 100% occlusion of the distal RCA stent, mild disease of the LAD, LCx and RCA, diastolic congestive heart failure or HFpEF, essential hypertension, type 2 diabetes mellitus, angina and monoclonal gammopathy presented to the emergency department on 06/07/2024 for further evaluation of generalized weakness, anemia fever as well as shortness of breath. Patient was admitted to the hospital for possible working diagnosis of pneumonia and then a CTA chest was performed on 06/08/2024 which showed large bilateral pulmonary emboli in distal right, left pulmonary artery segments, multiple bilateral upper lobe lung lower lobey emboli. Bilateral duplex was also positive for nonocclusive thrombus in the right common femoral vein as well as nonocclusive thrombus in left peroneal vein, bases bilateral pneumonia, Cardiology consulted today on 06/10/2024 for further evaluation of pulmonary embolism and to assist in potential for possible thrombectomy. Assessment and plan: 1. Acute hypoxic respiratory failure is mostly secondary to bilateral pulmonary embolism 2. Acute bilateral PE-right greater than left 3. Acute bilateral lower extremity DVT 4. Bibasilar pneumonia 5. 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 8. Essential hypertension 9. Type 2 diabetes mellitus 10. Anemia 11. IgM monoclonal gammopathy 12. Mild cognitive insufficiency. Reviewed the CTA of the chest done which showed significant right coronary artery just before the bifurcation involving the lower lobe and upper lobe and right middle lobe. Left main PA has mild thrombus or clot extending into the left lower lobe and upper lobe but only partially. Duplex positive for bilateral lower extremity DVT including the left side below knee left peroneal as well as right peroneal veins and rest of the veins were clear. Patient did present to the hospital on 06/07/2024 night and was admitted on 06/08/2024. Patient has been doing well for the last couple of days and has been started on Lovenox by the primary team. Oxygen requirements have been decreasing and now is only on 3 L/min. Commend to continue anticoagulation and switch Lovenox to heparin drip and eventually can be changed to Eliquis DVT/PE dose. Continue Eliquis 5 mg twice daily. Patient does have right heart strain with elevated BNP at 1140, troponin was negative and patient is not hemodynamically unstable -given the above findings patient is not a candidate for urgent catheter based therapies including any thrombolysis or thrombectomy. Also RVSP elevated at 80 mmHg. Continue anticoagulation as noted above and will plan to do procedures only patient is in stable and is hemodynamically unstable her oxygen requirements are increasing. Echocardiogram reviewed and showed normal LV and RV function. LVEF is 55 to 60%. Diastolic dysfunction stage I. RVSP is also severely elevated at 80 mmHg. Mild biatrial dilatation. Mild aortic valve sclerosis without stenosis. Moderate to severe TR. Mild MR mild MAC. Unclear etiology of the PE at the present point of time and will need to rule out all other causes including malignancy versus prolonged immobility versus hypercoagulable states. Regarding her CAD continue with aspirin for now and statin. Discontinue plavix as she will be on eliquis and should not be on triple therapy. Patient denies any chest pain, chest pressure and also the troponins were negative and the EKG did not show any kind of acute ST-T changes. Cardiac echo from 2021 were reviewed and showed 100% in-stent occlusion of the distal RCA with collaterals from left to right and the mild disease of rest of RCA as well as LAD. Requested control of blood pressure as well as diabetes mellitus. Treatment of pneumonia as per primary team Management of rest of the medical conditions as per primary team and other consultants. Thank you for the consult and allowing us to participate in the care of the patient. Cardiology will continue to follow. Plan of care discussed with [employer] Manager Dr Brenda Orozco Internal medicine PGY1 Attending Provider Attestation/Addendum I have personally seen and examined the patient separately on the above date of service and discussed the plan of care with the resident. I reviewed the resident Dr. Temi Orozco consultation progress note and agree with the resident findings and plan in the note above and have also edited the documentation to reflect my findings and plan. Jeffery Gutierrez M.D. Interventional Cardiology.
--- NOTE | 2024-06-12 10:49 | PC.CM ---
Patient did not have a preference for a home health agency so I sent to [facility].
--- NOTE | 2024-06-12 11:16 | PC.NURSE ---
Patient room air SPO2% at rest is 92%. Patient room air SPO2 with exercise is 88%. Patient SPO2 on oxygen at 2L with exercise is 96%
--- NOTE | 2024-06-12 11:49 | PC.CM ---
[facility] accepted patient and they will open on 06/14.
--- NOTE | 2024-06-12 12:30 | PC.NURSE ---
Discharge of patient pending approval and delivery of oxygen for home use.
[2024-06-12 13:35] LABS: Partial Thromboplastin Time 27.9 Seconds (22.0-36.0)
--- NOTE | 2024-06-12 14:46 | PC.SS ---
Addendum entered by Elvia Bañuelos 06/12/24 14:55: Per Ivette, ETA for oxygen delivery at bedside 1700. Original Note: DME referral submitted on [employer] referral platform, [facility] has accepted oxygen order and will inform SS ETA to deliver at bedside. SS informed by Dr. Whitfield patient will be discharging and confirmed oxygen will be needed for patient. SS to submit referral for oxygen. SS informed by SANDRA Heard patient will be needing oxygen before discharge. SANDRA Heard informed SS will order DME and inform him of ETA for delivery. SS confirmed with Dr. Whitfield if patient will discharge today. Dr. Whitfield to confirm and contact SS
[2024-06-13 07:04] LABS: Kappa Light Chain, Free 60.7 mg/L (3.3-19.4)
[2024-06-16 03:06] LABS: Abnormal protein band 1 0.4 g/dL (NONE DETECTED); Albumin 2.9 g/dL (3.8-4.8); Alpha-1-Globulin 0.5 g/dL (0.2-0.3); Alpha-2-Globulin 0.9 g/dL (0.5-0.9); Beta-1-Globulin 0.3 g/dL (0.4-0.6); Beta-2-globulin 0.4 g/dL (0.2-0.5); Gamma Globulin 0.9 g/dL (0.8-1.7)
[2024-06-16 07:09] LABS: Protein, total, serum 5.8 g/dL (6.1-8.1)
== END 2024-06-12 17:45 | disposition home health service (06) | DRG 871 ==
LOC: SERX 20:05 → SERHOLD 06-08 05:44 → S3NX 06-08 09:48 → S2NX 06-08 19:35
PROVIDERS: Registered Nurse General Practice; Student in an Organized Health Care Education/Training Program; Admitting Provider Student in an Organized Health Care Education/Training Program; Emergency Provider Emergency Medicine; PCP Internal Medicine; Visit Provider Internal Medicine
DX: A41.9 Sepsis, unspecified organism (principal); I26.99 Other pulmonary embolism without acute cor pulmonale; J96.01 Acute respiratory failure with hypoxia; J18.1 Lobar pneumonia, unspecified organism; I13.0 Hypertensive heart and chronic kidney disease with heart failure and stage 1 through stage 4 chronic kidney disease, or unspecified chronic kidney disease; I50.32 Chronic diastolic (congestive) heart failure; N17.9 Acute kidney failure, unspecified; I82.411 Acute embolism and thrombosis of right femoral vein; I82.452 Acute embolism and thrombosis of left peroneal vein; I82.403 Acute embolism and thrombosis of unspecified deep veins of lower extremity, bilateral; I25.10 Atherosclerotic heart disease of native coronary artery without angina pectoris; J45.909 Unspecified asthma, uncomplicated; F03.C0 Unspecified dementia, severe, without behavioral disturbance, psychotic disturbance, mood disturbance, and anxiety; D47.2 Monoclonal gammopathy; E11.22 Type 2 diabetes mellitus with diabetic chronic kidney disease; D75.839 Thrombocytosis, unspecified; I35.8 Other nonrheumatic aortic valve disorders; N18.31 Chronic kidney disease, stage 3a; I07.1 Rheumatic tricuspid insufficiency; D63.1 Anemia in chronic kidney disease; Z96.642 Presence of left artificial hip joint; Z95.5 Presence of coronary angioplasty implant and graft; Z79.899 Other long term (current) drug therapy; Z90.711 Acquired absence of uterus with remaining cervical stump; Z79.84 Long term (current) use of oral hypoglycemic drugs; Z79.02 Long term (current) use of antithrombotics/antiplatelets; Z87.440 Personal history of urinary (tract) infections; Z88.0 Allergy status to penicillin; Z88.1 Allergy status to other antibiotic agents; Z11.52 Encounter for screening for COVID-19; T50.2X5A Adverse effect of carbonic-anhydrase inhibitors, benzothiadiazides and other diuretics, initial encounter
CPT/HCPCS: 36415; 71046; 71260; 71275; 74177; 80053; 81001; 83036; 83605; 83615; 83690; 83735; 83880; 83883; 84100; 84145; 84155; 84165; 84484; 85025; 85610; 85652; 85730; 86334; 87040; 87081; 87086; 87205; 87400; 87811; 93005; 93306; 93970; 94640; 96365; 96366; 96368; 96375; 97162; 99285; A4649; A9270; J0692; J1643; J1644; J1650; J1815; J1940; J2405; J2470; J3370; J3475; J3480; J7050; Q9967

== ENCOUNTER → 2024-07-20 | Outpatient (CLI) | payer MEDICARE, MEDICAID, SELFPAY ==
[2024-07-20 09:24] LABS: Collection Type, Urine Clean Catch
[2024-07-20 10:41] LABS: Bilirubin,Urine Negative (Negative); Blood,Urine 1+ (Negative); Color,Urine Yellow (Lt Yel-Yel); Glucose, Urine Negative (Negative); Ketones,Urine Negative (Negative); Leukocyte Esterase,Urine Positive (Negative); Nitrite,Urine Negative (Negative); Protein,Urine 1+ (Neg - Trace); RBC,Urine 15 /hpf (0-3); Specific Gravity,Urine 1.015 (1.001-1.035); Squamous Epithelial Cell,Urine 7 /hpf (0-5); Urobilinogen,Urine Negative mg/dL (0.0-1.0); WBC,Urine 1471 /hpf (0-5)
[2024-07-20 10:52] LABS: Clarity,Urine Cloudy (Clear/Hazy); Culture Indicated,Urine Yes
== END | disposition home or self-care (01) ==
LOC: SLDO 09:20
PROVIDERS: PCP Internal Medicine; Referring Provider Internal Medicine; Visit Provider Internal Medicine
DX: N39.0 Urinary tract infection, site not specified (principal)
CPT/HCPCS: 81001; 87077; 87086; 87186

== ENCOUNTER → 2024-11-01 | Outpatient (CLI) | payer MEDICARE, MEDICAID, SELFPAY ==
[2024-11-01 11:47] LABS: Basophils # (Auto) 0.1 Thou/mm3 (0.0-0.2); Basophils % (Auto) 2 % (0-2.5); Eosinophils # (Auto) 0.8 Thou/mm3 (0.0-0.5); Eosinophils % (Auto) 12 % (0-10); Hematocrit 30.6 % (36.0-46.0); Hemoglobin 9.6 g/dL (12.0-16.0); Immature Granulocytes Auto 0.02 Thou/mm3 (0.00-0.00); Lymphocytes # (Auto) 1.4 Thou/mm3 (1.0-4.8); Lymphocytes % (Auto) 20 % (10-50); Mean Corpuscular HGB Conc 31.4 g/dl (31.0-37.0); Mean Corpuscular Hemoglobin 25.7 pg (25.0-35.0); Mean Corpuscular Volume 82 fL (80-100); Monocytes # (Auto) 0.5 Thou/mm3 (0.0-0.8); Monocytes % (Auto) 7 % (0-12); Neutrophils # (Auto) 4.0 Thou/mm3 (1.8-7.7); Neutrophils % (Auto) 59 % (37-80); Nucleated Red Blood Cell # 0.00 Thou/mm3 (0.00-0.00); Nucleated Red Blood Cell % 0 /100 WBC (0); Platelet Count 382 Thou/mm3 (140-440); RDW Standard Deviation 49.4 fL (36.4-46.3); Red Blood Count 3.73 Miln/mm3 (4.00-5.20); White Blood Count 6.8 Thou/mm3 (3.6-11.0)
[2024-11-01 12:09] LABS: Alanine Aminotransferase 7 U/L (10-49); Albumin, Serum 3.8 gm/dL (3.4-4.8); Albumin/Globulin Ratio 1.3 (1.2-2.2); Alkaline Phosphatase 63 U/L (46-116); Anion Gap 8 (7-16); Aspartate Amino Transferase 15 U/L (0-34); BUN/Creatinine Ratio 14 Ratio (12-20); Bilirubin,Total 0.3 mg/dL (0.3-1.2); Blood Urea Nitrogen 22 mg/dL (9-23); Calcium 9.2 mg/dL (8.3-10.6); Calcium (Corrected) 9.4 mg/dL (8.5-10.1); Carbon Dioxide 29.7 mMol/L (20.0-31.0); Chloride 105 mMol/L (98-107); Creatinine (Component) 1.6 mg/dL (0.6-1.3); Globulin 2.9 gm/dL (2.3-3.5); Glucose 254 mg/dL (74-106); Osmolality,Calculated 297 (275-295); Potassium 3.8 mMol/L (3.4-5.1); Sodium 143 mMol/L (136-145); Total Protein 6.7 gm/dL (5.7-8.2); eGFR 32 See Note
[2024-11-05 23:35] LABS: Abnormal protein band 1 0.5 g/dL (NONE DETECTED); Albumin 3.6 g/dL (3.8-4.8); Alpha-1-Globulin 0.3 g/dL (0.2-0.3); Alpha-2-Globulin 0.7 g/dL (0.5-0.9); Beta-1-Globulin 0.4 g/dL (0.4-0.6); Beta-2-globulin 0.3 g/dL (0.2-0.5); Gamma Globulin 1.3 g/dL (0.8-1.7); Immunoglobulin A 228 mg/dL (70-320); Immunoglobulin G 966 mg/dL (600-1540); Kappa Light Chain, Free 67.2 mg/L (3.3-19.4); Lambda Light Chain, Free 26.5 mg/L (5.7-26.3)
[2024-11-07 06:52] LABS: Beta 2 Microglobulin 4.22 mg/L (< OR = 2.51); Protein, total, serum 6.7 g/dL (6.1-8.1)
[2024-11-07 06:53] LABS: Immunoglobulin M 800 mg/dL (50-300); Kappa/Lambda, Free Ratio 2.54 (0.26-1.65)
== END | disposition home or self-care (01) ==
PROVIDERS: Referring Provider Internal Medicine Hematology & Oncology; Visit Provider Internal Medicine Hematology & Oncology
DX: D72.829 Elevated white blood cell count, unspecified (principal)
CPT/HCPCS: 36415; 80053; 82232; 82784; 83521; 84155; 84165; 85025; 86334

== ENCOUNTER 2024-11-08 11:03 | Outpatient (RCR) | payer MEDICARE, MEDICAID, SELFPAY ==
--- NOTE | 2024-11-08 13:24 | CTCFLWUP_ITS ---
Patient: AFSANEH CHANDRA : 1940 Page 2 of 2 FOLLOW UP NOTE DATE OF SERVICE: 11/08/2024 NAME: AFSANEH CHANDRA ACCOUNT: [id number] : 1940 AGE: 84 INTERVAL HISTORY: Patient doing well. Patient is with a caregiver who reports that patient has memory loss. ONCOLOGY HISTORY: DIAGNOSIS: Monoclonal gammopathy of undetermined significance, IgM type. Mild eosinophilia most likely secondary to allergies.) Dementia REASON FOR TODAY?S VISIT: This is office follow-up visit. Ms. Chandra is here at [facility] cancer center accompanied by her caregiver. Patient's daughter is not present at this visit. Ms. Chandra is recently diagnosed with dementia. She denies any cough, chest pain, abdominal pain. She does have pain in the left knee. Ambulating with the help of a walker. \ DATE OF DIAGNOSIS: 2018 STAGE/TNM: IgM gammopathy TREATMENT HISTORY: Care?Plan Start?Date Cycle Day Intent HISTORY OF PRESENT ILLNESS: Afsaneh Chandra is a 84-year-old ENG speaking female with history of hypertension, diabetes, coronary artery disease as well as asthma. 09/16/2018: WBC 8.4, hemoglobin 11.3, MCV 93, platelets 526,000 (150?450), eosinophils 0.9 (0?0.4) 11/01/2018: WBC 8.0, hemoglobin 11.1, platelets 369,000 (150?450), is in office 1.2 (0?0.4) 11/08/2020: WBC 9.9, ANC 4.9, hemoglobin 12.1, MCV 90, platelets 472,000, eosinophils 0.9 (0?0.5), creatinine 1.5, EGFR 36, calcium 9.6. Beta-2 microglobulin 4.57. IgM 508 (50-300), immunofixaiton studies revealed one Ig M [place] monoclonal proteins migrating in the [place] region. Also, immunofixation studies revealed several trace concentrations bands migrating in the Gamma region which were of too low a concentration to definitively identified. Abnormal protein band 1 is 0.5 g/dl. Free kappa light chain is 70.7 (3.3-19.4). 09/05/2022: WBC 6.3, ANC 3.1, hemoglobin 11.8, MCV 90, platelets 413,000, eosinophils 1.1, creatinine 1.4, EGFR 38, calcium 9.6, Beta-2 microglobulin 4.56, IgM 449, [place] Light Chain free 72.0 IgM trend? 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 clopidogrel - 75 mg 1 tab Daily 2. docusate sodium - 250 mg 1 Capsule Daily 3. furosemide - 40 mg 1 tab Daily 4. glipiZIDE - 5 mg 1 tab Daily 5. pravastatin - 40 mg 1 tab Daily 6. ProAir HFA - 90 mcg/actuation 2 Puff(s) Every 6 Hours 7. verapamil - 240 mg 1 tab Daily Medications Last Reconciled by Nicolle Pollack MA on 11/08/2024 ALLERGIES: Penicillins; Cocci skin test REVIEW OF SYSTEMS: A complete 14-point review of systems was performed and is negative except as noted in interval history. PHYSICAL EXAMINATION: VITAL SIGNS: Temperature?98.3, B/P?159/85, Oxygen?Saturation?96% PAIN: 2 - Mild pain GENERAL APPEARANCE: Appears well, in no apparent distress, appropriately interactive. HEENT: Normocephalic, no temporal wasting, normal conjunctiva, no scleral icterus, normal hearing, lips without lesions, neck normal range of motion. CARDIOVASCULAR: Not assessed. PULMONARY: Normal respiratory effort, no respiratory distress or use of accessory muscles, speaking in full sentences, no tachypnea. EXTREMITIES: No pedal edema or cyanosis. SKIN: Normal skin appearance. NEUROLOGIC: Alert and oriented x4. PSHYCHIATRIC: Appropriate affect, mood normal, behavior normal, intact thought and speech. LABORATORY DATA: I have personally reviewed and interpreted each of the patient?s relevant lab tests, abnormal findings are below: Date 06/12/24 11/01/24 ??WHITE?BLOOD?COUNT?(Thou/mm3) ? 6.8 ??RED?BLOOD?COUNT?(Miln/mm3) ? 3.73?L ??HEMOGLOBIN?(gm/dl) ? 9.6?L ??HEMATOCRIT?(%) ? 30.6?L ??PLATELET?COUNT?(Thou/mm3) ? 382 ??NEUTROPHILS?%,?AUTO?(%) ? 59 ??LYMPH?%,?AUTO?(%) ? 20 ??NEUTROPHILS,?AUTO?(Thou/mm3) ? 4.0 ??GLUCOSE,RANDOM?(mg/dL) 144?H 254?H ??BLOOD?UREA?NITROGEN?(mg/dL) 24?H 22 ??CREATININE?(mg/dL) 1.40?H 1.60?H ??SODIUM?(mmol/L) 137 143 ??POTASSIUM?(mmol/L) 3.5 3.8 ??CHLORIDE?(mmol/L) 102 105 ??CrCl?(CandG)?(ml/min) 26.62 22.89 ??AST/SGOT?(Unit/L) 13 15 ??ALT/SGPT?(Unit/L) 10 7?L ??ALKALINE?PHOSPHATASE?(Unit/L) 64 63 ??BILIRUBIN,?TOTAL?(mg/dL) 0.3 0.3 ??PROTEIN?TOTAL?(gm/dl) 5.5?L 6.7 ??ALBUMIN,?SERUM?(gm/dl) 3.1?L 3.8 ??GLOBULIN?(gm/dl) 2.4 2.9 ??ALBUMIN/GLOBULIN?RATIO 1.3 1.3 ??CALCIUM,?SERUM?(mg/dL) 8.3 9.2 ??CALCIUM?SERUM?(CORRECTED)?(mg/dL) 9.0 9.4 ??MAGNESIUM?(mg/dL) 1.8 ? ASSESSMENT/PLAN: 1. 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 Patient is asymptomatic. 2. Dementia Patient is found to have increasing IgM level latest IgM level is 800. They have progressed from range about 400-500 Will repeat labs in 3 months Sent a note for daughter to follow-up with me in 3 months with the mother Patient may need to start acalabrutinib if her IgM level is approaching thousand Patient cannot give consent for drug and its possible side effect I called daughter multiple times and was unable to reach her. Handwritten note by me was sent to the daughter via caregiver. ORDERS: Order # Description [id number] Serum Protein Electrophoresis + Serum Immunofixation Electrophoresis + Beta-2 Microglobulin + Quant Immunoglobulins + Serum Viscocity + Free kappa and lambda light chains plus ratio, quantitative + Plasma cell myeloma prognostic FISH panel [id number] Follow Up 3 Months RETURN TO CLINIC: I reviewed the diagnosis, prognosis, and recommended treatment/procedure options with the patient (and/or their legal statement services representative), including the potential benefits, risks, side effects and alternative therapies. We also discussed the option of no treatment and the possibility of clinical trial participation, if applicable. All questions were addressed, and they demonstrated understanding. They provided informed consent to proceed with the proposed plan of care. BILLING AND COMPLIANCE: I reviewed external records from providers outside my specialty as summarized above. I spent a total of 50 minutes on this patient?s care on the day of their visit excluding time spent related to any billed procedures. This time includes time spent with the patient as well as time spent documenting in the medical record, reviewing patients records and tests, obtaining history, placing orders, communicating with other healthcare professionals, counseling the patient, family or caregiver, and/or care coordination for the diagnoses above. Electronically Signed by: Ben Suarez MD T: 1:22 PM CC: PCP: Margaret Solorio Referring: Kaleb Sky This document was completed utilizing speech recognition software. Grammatical errors, random word insertions, pronoun errors, and incomplete sentences are an occasional consequence of this system due to software limitations, ambient noise, and hardware issues. Any formal questions or concerns about the content, text or information contained within the body of this dictation should be directly addressed to the provider for clarification.
== END 2024-11-10 23:59 | disposition home or self-care (01) ==
LOC: SCTC 11:03
PROVIDERS: PCP Internal Medicine; Referring Provider Internal Medicine; Visit Provider Internal Medicine Hematology & Oncology
DX: D47.2 Monoclonal gammopathy (principal); F03.90 Unspecified dementia, unspecified severity, without behavioral disturbance, psychotic disturbance, mood disturbance, and anxiety
CPT/HCPCS: 99212; G0463

== ENCOUNTER → 2025-01-05 | Outpatient (CLI) | payer MEDICARE, MEDICAID, SELFPAY ==
--- NOTE | 2025-01-05 | XR_ITS ---
Examination: Knee bilateral, 4 views Technique: Knee AP, lateral, each knee total 4 views Date and time of exam: January 05, 2025, 1220 hours INDICATIONS: Bilateral knee pain one year. FINDINGS: Severe osteopenia Bilateral advanced tricompartment osteoarthritis 12 mm ossified joint body in the left suprapatellar joint space No fracture IMPRESSION: Bilateral advanced tricompartment osteoarthritis
== END | disposition home or self-care (01) ==
LOC: CDIM 11:37
PROVIDERS: PCP Internal Medicine; Referring Provider Internal Medicine; Visit Provider Internal Medicine
DX: M17.0 Bilateral primary osteoarthritis of knee (principal)
CPT/HCPCS: 73560

== ENCOUNTER → 2025-01-26 | Outpatient (CLI) | payer MEDICARE, MEDICAID, SELFPAY ==
[2025-01-26 11:22] LABS: Misc Send Out* See Sep Rpt
[2025-01-26 11:37] LABS: Collection Type, Urine Clean Catch
[2025-01-26 12:22] LABS: Basophils # (Auto) 0.1 Thou/mm3 (0.0-0.2); Basophils % (Auto) 2 % (0-2.5); Eosinophils # (Auto) 1.1 Thou/mm3 (0.0-0.5); Eosinophils % (Auto) 13 % (0-10); Hematocrit 31.8 % (36.0-46.0); Hemoglobin 10.0 g/dL (12.0-16.0); Immature Granulocytes Auto 0.03 Thou/mm3 (0.00-0.00); Lymphocytes # (Auto) 1.4 Thou/mm3 (1.0-4.8); Lymphocytes % (Auto) 17 % (10-50); Mean Corpuscular HGB Conc 31.4 g/dl (31.0-37.0); Mean Corpuscular Hemoglobin 27.1 pg (25.0-35.0); Mean Corpuscular Volume 86 fL (80-100); Monocytes # (Auto) 0.5 Thou/mm3 (0.0-0.8); Monocytes % (Auto) 6 % (0-12); Neutrophils # (Auto) 5.5 Thou/mm3 (1.8-7.7); Neutrophils % (Auto) 63 % (37-80); Nucleated Red Blood Cell # 0.00 Thou/mm3 (0.00-0.00); Nucleated Red Blood Cell % 0 /100 WBC (0); Platelet Count 457 Thou/mm3 (140-440); RDW Standard Deviation 50.8 fL (36.4-46.3); Red Blood Count 3.69 Miln/mm3 (4.00-5.20); White Blood Count 8.7 Thou/mm3 (3.6-11.0)
[2025-01-26 12:38] LABS: Creatinine MALB Rnd Ur 83 mg/dL (30-125); Microalbumin Creat Ratio 72 mg/gCrea (<30); Microalbumin, Random Urine 60 mg/L (0-300); Parathyroid Hormone Intact 98.0 pg/ml (18.5-88.0)
[2025-01-26 12:40] LABS: Bacteria,Urine Rare; Bilirubin,Urine Negative (Negative); Blood,Urine Negative (Negative); Clarity,Urine Clear (Clear/Hazy); Color,Urine Yellow (Lt Yel-Yel); Glucose, Urine 1+ (Negative); Hyaline Casts,Urine < 1 /hpf (0-1); Ketones,Urine Negative (Negative); Leukocyte Esterase,Urine Positive (Negative); Nitrite,Urine Negative (Negative); PH,Urine 6.5 (5.0-7.0); Protein,Urine Trace (Neg - Trace); RBC,Urine 3 /hpf (0-3); Specific Gravity,Urine 1.017 (1.001-1.035); Squamous Epithelial Cell,Urine 4 /hpf (0-5); Urobilinogen,Urine Negative mg/dL (0.0-1.0); WBC,Urine 34 /hpf (0-5)
[2025-01-26 12:42] LABS: Glucose Estimated Average 194 mg/dL (80-131); Hemoglobin A1C 8.4 % Hgb (4.8-6.0)
[2025-01-26 12:43] LABS: Alanine Aminotransferase 11 U/L (10-49); Albumin, Serum 3.9 gm/dL (3.4-4.8); Albumin/Globulin Ratio 1.5 (1.2-2.2); Alkaline Phosphatase 67 U/L (46-116); Anion Gap 8 (7-16); Aspartate Amino Transferase 21 U/L (0-34); BUN/Creatinine Ratio 14 Ratio (12-20); Bilirubin,Total 0.3 mg/dL (0.3-1.2); Blood Urea Nitrogen 20 mg/dL (9-23); Calcium 9.4 mg/dL (8.3-10.6); Calcium (Corrected) 9.5 mg/dL (8.5-10.1); Carbon Dioxide 30.0 mMol/L (20.0-31.0); Cardiac Risk Estimate 3.1 RATIO (3.7-5.6); Chloride 101 mMol/L (98-107); Cholesterol 148 mg/dL (132-200); Creatinine (Component) 1.4 mg/dL (0.6-1.3); Globulin 2.6 gm/dL (2.3-3.5); Glucose 226 mg/dL (74-106); HDL Cholesterol 48 mg/dL (40-60); LDL Cholesterol,Calculated 82 mg/dL (0-130); Osmolality,Calculated 287 (275-295); Potassium 4.1 mMol/L (3.4-5.1); Sodium 139 mMol/L (136-145); Thyroid Stimulating Hormone 1.98 uIU/mL (0.55-4.78); Total Protein 6.5 gm/dL (5.7-8.2); Triglycerides 92 mg/dL (30-150); Uric Acid 3.3 mg/dL (3.1-7.8); eGFR 37 See Note
[2025-01-26 12:45] LABS: Vitamin B12 1160 pg/mL (211-911); Vitamin D 25 Hydroxy Total 91.0 ng/mL (7.3-40.2)
[2025-01-26 12:53] LABS: Culture Indicated,Urine Yes
[2025-02-01 17:50] LABS: Abnormal protein band 1 0.6 g/dL (NONE DETECTED); Albumin 3.5 g/dL (3.8-4.8); Alpha-1-Globulin 0.3 g/dL (0.2-0.3); Alpha-2-Globulin 0.7 g/dL (0.5-0.9); Beta-1-Globulin 0.4 g/dL (0.4-0.6); Beta-2-globulin 0.3 g/dL (0.2-0.5); Gamma Globulin 1.1 g/dL (0.8-1.7); Immunoglobulin A 185 mg/dL (70-320); Immunoglobulin G 748 mg/dL (600-1540); Kappa Light Chain, Free 70.9 mg/L (3.3-19.4); Lambda Light Chain, Free 26.3 mg/L (5.7-26.3)
[2025-02-02 06:23] LABS: Beta 2 Microglobulin 3.83 mg/L (< OR = 2.51); Protein, total, serum 6.3 g/dL (6.1-8.1)
[2025-02-02 06:24] LABS: Immunoglobulin M 884 mg/dL (50-300); Kappa/Lambda, Free Ratio 2.70 (0.26-1.65)
== END | disposition home or self-care (01) ==
PROVIDERS: PCP Internal Medicine; Referring Provider Internal Medicine Hematology & Oncology; Visit Provider Internal Medicine Hematology & Oncology
DX: E11.9 Type 2 diabetes mellitus without complications (principal); I10 Essential (primary) hypertension; E78.5 Hyperlipidemia, unspecified; E55.9 Vitamin D deficiency, unspecified; D51.9 Vitamin B12 deficiency anemia, unspecified; D72.829 Elevated white blood cell count, unspecified
CPT/HCPCS: 36415; 80053; 80061; 81001; 82043; 82232; 82306; 82570; 82607; 82784; 83036; 83521; 83970; 84155; 84165; 84443; 84550; 85025; 86334; 87077; 87086; 87186

== ENCOUNTER 2025-02-08 13:08 | Outpatient (RCR) | payer MEDICARE, MEDICAID, SELFPAY ==
--- NOTE | 2025-02-21 22:24 | CTCFLWUP_ITS ---
Patient: AFSANEH CHANDRA : 1940 Page 2 of 3 FOLLOW UP NOTE DATE OF SERVICE: 02/08/2025 NAME: AFSANEH CHANDRA ACCOUNT: [id number] : 1940 AGE: 84 INTERVAL HISTORY: Patient doing well. Patient is with a caregiver who reports that patient has memory loss. ONCOLOGY HISTORY:?[facility] Hx? DIAGNOSIS: Monoclonal gammopathy of undetermined significance, IgM type. Mild eosinophilia most likely secondary to allergies.) Dementia REASON FOR TODAY?S VISIT: This is office follow-up visit. Ms. Chandra is here at [facility] cancer center accompanied by her caregiver. Patient's daughter is not present at this visit. Ms. Chandra is recently diagnosed with dementia. She denies any cough, chest pain, abdominal pain. She does have pain in the left knee. Ambulating with the help of a walker. \ DATE OF DIAGNOSIS: 2018 STAGE/TNM: IgM gammopathy TREATMENT HISTORY: Care?Plan Start?Date Cycle Day Intent HISTORY OF PRESENT ILLNESS: Afsaneh Chandra is a 84-year-old ENG speaking female with history of hypertension, diabetes, coronary artery disease as well as asthma. 09/16/2018: WBC 8.4, hemoglobin 11.3, MCV 93, platelets 526,000 (150?450), eosinophils 0.9 (0?0.4) 11/01/2018: WBC 8.0, hemoglobin 11.1, platelets 369,000 (150?450), is in office 1.2 (0?0.4) 11/08/2020: WBC 9.9, ANC 4.9, hemoglobin 12.1, MCV 90, platelets 472,000, eosinophils 0.9 (0?0.5), creatinine 1.5, EGFR 36, calcium 9.6. Beta-2 microglobulin 4.57. IgM 508 (50-300), immunofixaiton studies revealed one Ig M [place] monoclonal proteins migrating in the [place] region. Also, immunofixation studies revealed several trace concentrations bands migrating in the Gamma region which were of too low a concentration to definitively identified. Abnormal protein band 1 is 0.5 g/dl. Free kappa light chain is 70.7 (3.3-19.4). 09/05/2022: WBC 6.3, ANC 3.1, hemoglobin 11.8, MCV 90, platelets 413,000, eosinophils 1.1, creatinine 1.4, EGFR 38, calcium 9.6, Beta-2 microglobulin 4.56, IgM 449, [place] Light Chain free 72.0 IgM trend? OTHER MEDICAL HISTORY/CONDITIONS: FAMILY HISTORY: ?Clone Family Hx? 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 acalabrutinib maleate - 100 mg 1 tab Daily 2. [place] (acalabrutinib mal) - 100 mg 1 tab Daily 3. clopidogrel - 75 mg 1 tab Daily 4. docusate sodium - 250 mg 1 Capsule Daily 5. furosemide - 40 mg 1 tab Daily 6. glipiZIDE - 5 mg 1 tab Daily 7. pravastatin - 40 mg 1 tab Daily 8. ProAir HFA - 90 mcg/actuation 2 Puff(s) Every 6 Hours 9. verapamil - 240 mg 1 tab Daily?[place] Meds? Medications Last Reconciled by Jessica Stanton MD on 02/08/2025 ALLERGIES: Penicillins; Cocci skin test REVIEW OF SYSTEMS: A complete 14-point review of systems was performed and is negative except as noted in interval history. PHYSICAL EXAMINATION:?[facility] PE? VITAL SIGNS: Temperature?98.7, B/P?148/75, Oxygen?Saturation?96% Weight?129?lbs PAIN: 0 - No pain ECOG Performance Status: 0 - Asymptomatic and fully active GENERAL APPEARANCE: Appears well, in no apparent distress, appropriately interactive. HEENT: Normocephalic, no temporal wasting, normal conjunctiva, no scleral icterus, normal hearing, lips without lesions, neck normal range of motion. CARDIOVASCULAR: Not assessed. PULMONARY: Normal respiratory effort, no respiratory distress or use of accessory muscles, speaking in full sentences, no tachypnea. EXTREMITIES: No pedal edema or cyanosis. SKIN: Normal skin appearance. NEUROLOGIC: Alert and oriented x4. PSHYCHIATRIC: Appropriate affect, mood normal, behavior normal, intact thought and speech. LABORATORY DATA: I have personally reviewed and interpreted each of the patient?s relevant lab tests, abnormal findings are below: Date 01/26/25 02/16/25 ??WHITE?BLOOD?COUNT?(Thou/mm3) ? 6.5 ??RED?BLOOD?COUNT?(Miln/mm3) ? 3.10?L ??HEMOGLOBIN?(gm/dl) ? 8.3?L ??HEMATOCRIT?(%) ? 26.5?L ??PLATELET?COUNT?(Thou/mm3) ? 299 ??NEUTROPHILS?%,?AUTO?(%) ? 57 ??LYMPH?%,?AUTO?(%) ? 24 ??NEUTROPHILS,?AUTO?(Thou/mm3) ? 3.7 ??GLUCOSE,RANDOM?(mg/dL) 226?H 177?H ??BLOOD?UREA?NITROGEN?(mg/dL) 20 18 ??CREATININE?(mg/dL) 1.40?H 1.40?H ??SODIUM?(mmol/L) 139 141 ??POTASSIUM?(mmol/L) 4.1 4.0 ??CHLORIDE?(mmol/L) 101 105 ??CrCl?(CandG)?(ml/min) 26.16 28.12 ??AST/SGOT?(Unit/L) 21 16 ??ALT/SGPT?(Unit/L) 11 11 ??ALKALINE?PHOSPHATASE?(Unit/L) 67 54 ??BILIRUBIN,?TOTAL?(mg/dL) 0.3 0.2?L ??PROTEIN?TOTAL?(gm/dl) 6.5 6.0 ??ALBUMIN,?SERUM?(gm/dl) 3.9 4.0 ??GLOBULIN?(gm/dl) 2.6 2.0?L ??ALBUMIN/GLOBULIN?RATIO 1.5 2.0 ??CALCIUM,?SERUM?(mg/dL) 9.4 9.4 ??CALCIUM?SERUM?(CORRECTED)?(mg/dL) 9.5 9.4 ??TOTAL?IRON?BINDING?CAP?(S*)?(mcg/dL) ? 306 ??UNBOUND?IBC?(mcg/dL) ? 295 ASSESSMENT/PLAN:?Ronnie Suarez Assessment/Plan? 1. 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 Patient is asymptomatic. 2. Dementia Patient is found to have increasing IgM level latest IgM level is 800. They have progressed from range about 400-500 Patient is unable to use chemotherapy herself Lives with daughter No labs awailable tod ay Advised to come to the clinic after the lab completed ORDERS: Order # Description [id number] Comprehensive Metabolic Panel - 12 + CBC with Auto Diff [id number] Iron Panel + Ferritin + Vitamin B-12 + Folic Acid; Serum [id number] Serum Protein Electrophoresis + Serum Immunofixation Electrophoresis + Beta-2 Microglobulin + Quant Immunoglobulins + Free kappa and lambda light chains plus ratio, quantitative + Serum Viscocity + Urine Immunification Electrophoresis [id number] Follow Up 4 Week RETURN TO CLINIC: I reviewed the diagnosis, prognosis, and recommended treatment/procedure options with the patient (and/or their legal hospital sales representative), including the potential benefits, risks, side effects and alternative therapies. We also discussed the option of no treatment and the possibility of clinical trial participation, if applicable. All questions were addressed, and they demonstrated understanding. They provided informed consent to proceed with the proposed plan of care. BILLING AND COMPLIANCE: I reviewed external records from providers outside my specialty as summarized above. I spent a total of 50 minutes on this patient?s care on the day of their visit excluding time spent related to any billed procedures. This time includes time spent with the patient as well as time spent documenting in the medical record, reviewing patients records and tests, obtaining history, placing orders, communicating with other healthcare professionals, counseling the patient, family or caregiver, and/or care coordination for the diagnoses above. Electronically Signed by: Ben Suarez MD T: 10:21 PM CC: PCP: Margaret Solorio Referring: Kaleb Sky This document was completed utilizing speech recognition software. Grammatical errors, random word insertions, pronoun errors, and incomplete sentences are an occasional consequence of this system due to software limitations, ambient noise, and hardware issues. Any formal questions or concerns about the content, text or information contained within the body of this dictation should be directly addressed to the provider for clarification.
== END 2025-02-10 23:59 | disposition home or self-care (01) ==
LOC: SCTC 13:08
PROVIDERS: PCP Internal Medicine; Referring Provider Internal Medicine; Visit Provider Internal Medicine Hematology & Oncology
DX: D47.2 Monoclonal gammopathy (principal); D72.10 Eosinophilia, unspecified; F03.90 Unspecified dementia, unspecified severity, without behavioral disturbance, psychotic disturbance, mood disturbance, and anxiety
CPT/HCPCS: 99212; G0463

== ENCOUNTER → 2025-02-16 | Outpatient (CLI) | payer MEDICARE, MEDICAID, SELFPAY ==
[2025-02-16 14:13] LABS: Misc Send Out* See Sep Rpt
[2025-02-16 14:27] LABS: Basophils # (Auto) 0.1 Thou/mm3 (0.0-0.2); Basophils % (Auto) 1 % (0-2.5); Eosinophils # (Auto) 0.6 Thou/mm3 (0.0-0.5); Eosinophils % (Auto) 9 % (0-10); Hematocrit 26.5 % (36.0-46.0); Immature Granulocytes Auto 0.03 Thou/mm3 (0.00-0.00); Lymphocytes # (Auto) 1.5 Thou/mm3 (1.0-4.8); Lymphocytes % (Auto) 24 % (10-50); Mean Corpuscular HGB Conc 31.3 g/dl (31.0-37.0); Mean Corpuscular Hemoglobin 26.8 pg (25.0-35.0); Mean Corpuscular Volume 86 fL (80-100); Monocytes # (Auto) 0.6 Thou/mm3 (0.0-0.8); Monocytes % (Auto) 9 % (0-12); Neutrophils # (Auto) 3.7 Thou/mm3 (1.8-7.7); Neutrophils % (Auto) 57 % (37-80); Nucleated Red Blood Cell # 0.00 Thou/mm3 (0.00-0.00); Nucleated Red Blood Cell % 0 /100 WBC (0); Platelet Count 299 Thou/mm3 (140-440); RDW Standard Deviation 45.8 fL (36.4-46.3); Red Blood Count 3.10 Miln/mm3 (4.00-5.20); White Blood Count 6.5 Thou/mm3 (3.6-11.0)
[2025-02-16 14:39] LABS: Glucose Estimated Average 212 mg/dL (80-131); Hemoglobin A1C 9.0 % Hgb (4.8-6.0)
[2025-02-16 14:52] LABS: Ferritin 17 ng/mL (7.3-270.7); Iron 11 mcg/dL (50-170); Percent Iron Saturation 3 % (20-55); Total Iron Binding Capacity 306 mcg/dL (250-425); Unsaturated Iron Binding 295 (225-295)
[2025-02-16 14:54] LABS: Hemoglobin 8.3 g/dL (12.0-16.0)
[2025-02-16 14:58] LABS: Alanine Aminotransferase 11 U/L (10-49); Albumin, Serum 4.0 gm/dL (3.4-4.8); Albumin/Globulin Ratio 2.0 (1.2-2.2); Alkaline Phosphatase 54 U/L (46-116); Anion Gap 6 (7-16); Aspartate Amino Transferase 16 U/L (0-34); BUN/Creatinine Ratio 13 Ratio (12-20); Bilirubin,Direct < 0.1 mg/dL (0.0-0.3); Bilirubin,Total 0.2 mg/dL (0.3-1.2); Blood Urea Nitrogen 18 mg/dL (9-23); Calcium 9.4 mg/dL (8.3-10.6); Calcium (Corrected) 9.4 mg/dL (8.5-10.1); Carbon Dioxide 29.6 mMol/L (20.0-31.0); Cardiac Risk Estimate 2.8 RATIO (3.7-5.6); Chloride 105 mMol/L (98-107); Cholesterol 131 mg/dL (132-200); Creatinine (Component) 1.4 mg/dL (0.6-1.3); Folate > 24.00 ng/mL (>5.38); Free T4 (Free Thyroxine) 1.06 ng/dL (0.89-1.76); Globulin 2.0 gm/dL (2.3-3.5); Glucose 177 mg/dL (74-106); HDL Cholesterol 47 mg/dL (40-60); LDL Cholesterol,Calculated 68 mg/dL (0-130); Osmolality,Calculated 287 (275-295); Phosphorous 3.5 mg/dL (2.4-5.1); Potassium 4.0 mMol/L (3.4-5.1); Sodium 141 mMol/L (136-145); Thyroid Stimulating Hormone 1.45 uIU/mL (0.55-4.78); Total Protein 6.0 gm/dL (5.7-8.2); Triglycerides 79 mg/dL (30-150); Vitamin B12 765 pg/mL (211-911); eGFR 37 See Note
[2025-02-21 23:32] LABS: Abnormal protein band 1 0.5 g/dL (NONE DETECTED); Albumin 3.5 g/dL (3.8-4.8); Alpha-1-Globulin 0.3 g/dL (0.2-0.3); Alpha-2-Globulin 0.7 g/dL (0.5-0.9); Beta-1-Globulin 0.4 g/dL (0.4-0.6); Beta-2-globulin 0.3 g/dL (0.2-0.5); Gamma Globulin 0.9 g/dL (0.8-1.7); Immunoglobulin A 161 mg/dL (70-320); Immunoglobulin G 642 mg/dL (600-1540); Kappa Light Chain, Free 55.2 mg/L (3.3-19.4); Lambda Light Chain, Free 26.3 mg/L (5.7-26.3)
[2025-02-22 07:40] LABS: Beta 2 Microglobulin 4.24 mg/L (< OR = 2.51); Immunoglobulin M 631 mg/dL (50-300); Kappa/Lambda, Free Ratio 2.10 (0.26-1.65); Protein, total, serum 6.0 g/dL (6.1-8.1)
== END | disposition home or self-care (01) ==
LOC: SCTO 13:40
PROVIDERS: PCP Internal Medicine Cardiovascular Disease; Referring Provider Internal Medicine; Visit Provider Internal Medicine Hematology & Oncology
DX: D72.829 Elevated white blood cell count, unspecified (principal); E78.5 Hyperlipidemia, unspecified; I25.118 Atherosclerotic heart disease of native coronary artery with other forms of angina pectoris; I12.9 Hypertensive chronic kidney disease with stage 1 through stage 4 chronic kidney disease, or unspecified chronic kidney disease; E11.22 Type 2 diabetes mellitus with diabetic chronic kidney disease; N18.30 Chronic kidney disease, stage 3 unspecified; E11.65 Type 2 diabetes mellitus with hyperglycemia
CPT/HCPCS: 36415; 80053; 80061; 82232; 82248; 82607; 82728; 82746; 82784; 83036; 83521; 83540; 83550; 84100; 84155; 84165; 84439; 84443; 85025; 85810; 86334; 86335

== ENCOUNTER → 2025-03-07 | Outpatient (CLI) | payer MEDICARE, MEDICAID, SELFPAY | END | disposition home or self-care (01) | LOC: SLDO 14:50 | PROVIDERS: Referring Provider Internal Medicine Hematology & Oncology; Visit Provider Internal Medicine Hematology & Oncology | DX: D72.829 Elevated white blood cell count, unspecified (principal) | CPT/HCPCS: 86335 ==

== ENCOUNTER → 2025-03-07 | Outpatient (CLI) | payer MEDICARE, MEDICAID, SELFPAY ==
--- NOTE | 2025-03-07 14:53 | XR_ITS ---
EXAMINATION: Metastatic bone survey, 15 views TECHNIQUE: [place]orene left lateral skull, AP pelvis, lateral cervical thoracic lumbar spine, AP right and left humerus, AP right and left forearm, AP right and left femur, AP right and left tibia fibula, AP chest 15 views Date and time: March 07, 2025, 1502 hours INDICATIONS: Multiple myeloma survey COMPARISON: May 17, 2021 FINDINGS: Severe osteopenia Left hip bipolar hemiarthroplasty with satisfactory alignment No osteolytic lesions or pathologic fractures involving cervicothoracic or lumbar vertebral bodies Advanced degenerative disc disease L3-4, L4-L5 No convincing osteolytic lesions involving extremities No pathologic fractures Mild prominence left ventricle Ectatic enlarged thoracic aorta No pneumonia or pulmonary edema Ribs appear intact IMPRESSION: No convincing osteolytic lesions identified
== END | disposition home or self-care (01) ==
PROVIDERS: PCP Internal Medicine; Referring Provider Internal Medicine Hematology & Oncology; Visit Provider Internal Medicine Hematology & Oncology
DX: D72.829 Elevated white blood cell count, unspecified (principal)
CPT/HCPCS: 77074

== ENCOUNTER 2025-03-28 13:11 | Outpatient (RCR) | payer MEDICARE, MEDICAID, SELFPAY ==
--- NOTE | 2025-03-21 11:05 | CTCFLWUP_ITS ---
Patient: AFSANEH CHANDRA : 1940 Page 3 of 5 FOLLOW UP NOTE DATE OF SERVICE: 03/21/2025 NAME: AFSANEH CHANDRA ACCOUNT: [id number] : 1940 AGE: 84 INTERVAL HISTORY: Summary patient doing well. Patient is with a caregiver who reports that patient has memory loss. Patient is having frequent UTIs. Last blood work shows deficiency and iron and excessive vitamin D. Patient is already stopped taking vitamin D and is being started on IV iron. IgM level is below 650 . ONCOLOGY HISTORY: DIAGNOSIS: Monoclonal gammopathy of undetermined significance, IgM type. Mild eosinophilia most likely secondary to allergies.) Dementia REASON FOR TODAY?S VISIT: This is office follow-up visit. Ms. Chandra is here at [facility] cancer center accompanied by her caregiver. Patient's daughter is not present at this visit. Ms. Chandra is recently diagnosed with dementia. She denies any cough, chest pain, abdominal pain. She does have pain in the left knee. Ambulating with the help of a walker. \ DATE OF DIAGNOSIS: 2018 STAGE/TNM: IgM gammopathy TREATMENT HISTORY: Care?Plan Start?Date Cycle Day Intent VENOfer?200mg?IV?wkly?for?10?weeks 02/22/2025 1 70 Palliative HISTORY OF PRESENT ILLNESS: Afsaneh Chandra is a 84-year-old ENG speaking female with history of hypertension, diabetes, coronary artery disease as well as asthma. 09/16/2018: WBC 8.4, hemoglobin 11.3, MCV 93, platelets 526,000 (150?450), eosinophils 0.9 (0?0.4) 11/01/2018: WBC 8.0, hemoglobin 11.1, platelets 369,000 (150?450), is in office 1.2 (0?0.4) 11/08/2020: WBC 9.9, ANC 4.9, hemoglobin 12.1, MCV 90, platelets 472,000, eosinophils 0.9 (0?0.5), creatinine 1.5, EGFR 36, calcium 9.6. Beta-2 microglobulin 4.57. IgM 508 (50-300), immunofixaiton studies revealed one Ig M [place] monoclonal proteins migrating in the [place] region. Also, immunofixation studies revealed several trace concentrations bands migrating in the Gamma region which were of too low a concentration to definitively identified. Abnormal protein band 1 is 0.5 g/dl. Free kappa light chain is 70.7 (3.3-19.4). 09/05/2022: WBC 6.3, ANC 3.1, hemoglobin 11.8, MCV 90, platelets 413,000, eosinophils 1.1, creatinine 1.4, EGFR 38, calcium 9.6, Beta-2 microglobulin 4.56, IgM 449, [place] Light Chain free 72.0 IgM trend? 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 clopidogrel - 75 mg 1 tab Daily 2. docusate sodium - 250 mg 1 Capsule Daily 3. furosemide - 40 mg 1 tab Daily 4. glipiZIDE - 5 mg 1 tab Daily 5. pravastatin - 40 mg 1 tab Daily 6. ProAir HFA - 90 mcg/actuation 2 Puff(s) Every 6 Hours 7. verapamil - 240 mg 1 tab Daily Medications Last Reconciled by Jessica De Souza MA on 03/21/2025 ALLERGIES: Penicillins; Cocci skin test REVIEW OF SYSTEMS: A complete 14-point review of systems was performed and is negative except as noted in interval history. PHYSICAL EXAMINATION: VITAL SIGNS: Temperature?98.9, B/P?126/79, Oxygen?Saturation?97% PAIN: 0 - No pain ECOG Performance Status: 0 - Asymptomatic and fully active GENERAL APPEARANCE: Appears well, in no apparent distress, appropriately interactive. HEENT: Normocephalic, no temporal wasting, normal conjunctiva, no scleral icterus, normal hearing, lips without lesions, neck normal range of motion. CARDIOVASCULAR: Not assessed. PULMONARY: Normal respiratory effort, no respiratory distress or use of accessory muscles, speaking in full sentences, no tachypnea. EXTREMITIES: No pedal edema or cyanosis. SKIN: Normal skin appearance. NEUROLOGIC: Alert and oriented x4. PSHYCHIATRIC: Appropriate affect, mood normal, behavior normal, intact thought and speech. LABORATORY DATA: I have personally reviewed and interpreted each of the patient?s relevant lab tests, abnormal findings are below: Date 01/26/25 02/16/25 ??WHITE?BLOOD?COUNT?(Thou/mm3) ? 6.5 ??RED?BLOOD?COUNT?(Miln/mm3) ? 3.10?L ??HEMOGLOBIN?(gm/dl) ? 8.3?L ??HEMATOCRIT?(%) ? 26.5?L ??PLATELET?COUNT?(Thou/mm3) ? 299 ??NEUTROPHILS?%,?AUTO?(%) ? 57 ??LYMPH?%,?AUTO?(%) ? 24 ??NEUTROPHILS,?AUTO?(Thou/mm3) ? 3.7 ??GLUCOSE,RANDOM?(mg/dL) 226?H 177?H ??BLOOD?UREA?NITROGEN?(mg/dL) 20 18 ??CREATININE?(mg/dL) 1.40?H 1.40?H ??SODIUM?(mmol/L) 139 141 ??POTASSIUM?(mmol/L) 4.1 4.0 ??CHLORIDE?(mmol/L) 101 105 ??CrCl?(CandG)?(ml/min) 26.16 28.12 ??AST/SGOT?(Unit/L) 21 16 ??ALT/SGPT?(Unit/L) 11 11 ??ALKALINE?PHOSPHATASE?(Unit/L) 67 54 ??BILIRUBIN,?TOTAL?(mg/dL) 0.3 0.2?L ??PROTEIN?TOTAL?(gm/dl) 6.5 6.0 ??ALBUMIN,?SERUM?(gm/dl) 3.9 4.0 ??GLOBULIN?(gm/dl) 2.6 2.0?L ??ALBUMIN/GLOBULIN?RATIO 1.5 2.0 ??CALCIUM,?SERUM?(mg/dL) 9.4 9.4 ??CALCIUM?SERUM?(CORRECTED)?(mg/dL) 9.5 9.4 ??TOTAL?IRON?BINDING?CAP?(S*)?(mcg/dL) ? 306 ??UNBOUND?IBC?(mcg/dL) ? 295 ASSESSMENT/PLAN: 1. 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 Patient is asymptomatic. 2. Dementia Patient is found to have increasing IgM level latest IgM level is 600 They have progressed from range about 400-500 Patient is unable to use chemotherapy herself Lives with daughter and patient's daughter do not want to be started on acalabrutinib Continue supportive care only Will start Venofer as patient's ferritin as well as serum iron concentrations are very low Patient's dementia may also be part of the iron deficiency ORDERS: Order # Description [id number] Follow Up 3 Months + Comprehensive Metabolic Panel - 12 + CBC with Auto Diff RETURN TO CLINIC: I reviewed the diagnosis, prognosis, and recommended treatment/procedure options with the patient (and/or their legal customer service representative), including the potential benefits, risks, side effects and alternative therapies. We also discussed the option of no treatment and the possibility of clinical trial participation, if applicable. All questions were addressed, and they demonstrated understanding. They provided informed consent to proceed with the proposed plan of care. BILLING AND COMPLIANCE: I reviewed external records from providers outside my specialty as summarized above. I spent a total of 50 minutes on this patient?s care on the day of their visit excluding time spent related to any billed procedures. This time includes time spent with the patient as well as time spent documenting in the medical record, reviewing patients records and tests, obtaining history, placing orders, communicating with other healthcare professionals, counseling the patient, family or caregiver, and/or care coordination for the diagnoses above. Electronically Signed by: Ben Suarez MD T: 11:02 AM CC: PCP: Desi Stanton Referring: Desi Stanton This document was completed utilizing speech recognition software. Grammatical errors, random word insertions, pronoun errors, and incomplete sentences are an occasional consequence of this system due to software limitations, ambient noise, and hardware issues. Any formal questions or concerns about the content, text or information contained within the body of this dictation should be directly addressed to the provider for clarification.
== END 2025-04-12 23:59 | disposition home or self-care (01) ==
LOC: SCTC 13:11
PROVIDERS: PCP Internal Medicine; Referring Provider Family Medicine; Visit Provider Internal Medicine Hematology & Oncology
DX: E61.1 Iron deficiency (principal); D47.2 Monoclonal gammopathy; F03.90 Unspecified dementia, unspecified severity, without behavioral disturbance, psychotic disturbance, mood disturbance, and anxiety
CPT/HCPCS: 96365; 96375; 99212; J1756; J2919; J3490; J7040; G0463

== ENCOUNTER → 2025-03-29 | Outpatient (CLI) | payer MEDICARE, MEDICAID, SELFPAY ==
[2025-03-29 12:29] LABS: Collection Type, Urine Clean Catch
[2025-03-29 13:45] LABS: Bacteria,Urine Rare; Bilirubin,Urine Negative (Negative); Blood,Urine 1+ (Negative); Color,Urine Yellow (Lt Yel-Yel); Glucose, Urine 1+ (Negative); Ketones,Urine Negative (Negative); Leukocyte Esterase,Urine Positive (Negative); Nitrite,Urine Negative (Negative); PH,Urine 6.5 (5.0-7.0); Protein,Urine 1+ (Neg - Trace); RBC,Urine 12 /hpf (0-3); Specific Gravity,Urine 1.021 (1.001-1.035); Squamous Epithelial Cell,Urine 2 /hpf (0-5); Urobilinogen,Urine Negative mg/dL (0.0-1.0); WBC,Urine 841 /hpf (0-5)
[2025-03-29 14:01] LABS: Clarity,Urine Cloudy (Clear/Hazy)
[2025-03-29 14:02] LABS: Culture Indicated,Urine Yes
== END | disposition home or self-care (01) ==
LOC: SLDO 12:06
PROVIDERS: Referring Provider Internal Medicine; Visit Provider Internal Medicine
DX: N39.0 Urinary tract infection, site not specified (principal)
CPT/HCPCS: 81001; 87077; 87086; 87186